=== PATIENT | female | born 1975 | race Caucasian/White ===

== ENCOUNTER 2016-09-29 13:40 | Emergency (ER) | payer OTHER ==
[~2016-09-29] VITALS: Ht 160 cm; Wt 121.6 kg
[~2016-09-29 13:40] MED LIST: ALBUAER2 INH; AMPH15CA7 PO; AMPH20TA2 PO; ATV/1 PO; CETI10TA84 PO; CHOL4POW4 PO; ERGO1CAP35 PO; FERR1TAB13 PO; FLUT0.15 NAE; FURO-85 PO; HYDR-5688 PO; IPRA0.03 NAE; ONDA4TAB10 SL; ONDA4TAB46 PO; PRLSR20 PO; SERT1TAB88 PO; ZLF/50 PO
[2016-09-29 13:43] VITALS: TEMP 37; Ht 160 cm; Wt 121.6 kg
--- NOTE | 2016-09-29 14:38 | DIAGNOSTIC IMAGING REPORT ---
RIGHT WRIST 5 VIEWS HISTORY: Fall. Right wrist injury. COMPARISON: None. FINDINGS: There is no fracture or dislocation. Soft tissues are unremarkable. No radiopaque foreign bodies. IMPRESSION: No fractures. Electronically signed by: Irineo Dugan M.D. 09/29/2016 2:37 PM Dictated Date/Time: 09/29/2016 2:34 PM
--- NOTE | 2016-09-29 15:11 | EMERGENCY ROOM VISIT NOTE ---
ED Visit Note First contact with patient: 13:50 Chief Complaint: RIGHT Hand Pain/Injury - Fell History of Present Illness: Patient is a 40-year-old female who presents to the emergency room today for evaluation of her RIGHT hand injury. She reports that she fell 3 days ago while moving resulting in pain to the RIGHT hand and wrist area. The patient rates her current discomfort as an 8/10. She is tried over- the-counter medications without relief of symptoms. She reports pain with range of motion of the affected RIGHT great thumb. She denies any numbness or tingling into the distal extremity. She reports no history of fracture or injury to the affected area. She denies any associated elbow pain, forearm pain , or shoulder pain. Medications: Reviewed and discussed with the patient. Allergies: Multiple allergies listed above. PMH: No pertinent past medical history. SHx: Patient is a 40-year-old female who lives locally. ROS: All pertinent positive and negative review of systems are appropriately documented in the History of Present Illness. Physical Exam: VITAL SIGNS - Vital signs and nursing notes were reviewed. GENERAL - 40-year-old female appearing her stated age and in noticeable discomfort throughout the exam. MUSCULOSKELETAL - Active ROM of the RIGHT wrist was limited in all directions. No edema noted throughout. No palpable deformities. Moderate tenderness over the Radial styloid process. No tenderness with squeezing the forearm. No tenderness extending into the carpals. No point-tenderness over the anatomic snuffbox. Moderate pain elicited with supination and pronation of the forearm. NEUROLOGIC - SENSORY: Spinothalamic tract was found to be intact with ability to discriminate sharp versus dull sensation at the level of the RIGHT elbow down to the fingertips. No sensory deficits of the dorsal column were appreciated utilizing light touch for evaluation. VASCULAR - Capillary refill was brisk. +3/5 radial pulse palpated. IMAGING: RIGHT WRIST 5 VIEWS HISTORY: Fall. Right wrist injury. COMPARISON: None. FINDINGS: There is no fracture or dislocation. Soft tissues are unremarkable. No radiopaque foreign bodies. IMPRESSION: No fractures. ED Course: Patient was seen and evaluated by myself. X-ray of the affected wrist was obtained. Imaging results above. Imaging results were discussed with the patient who acknowledges understanding. Patient was placed in a thumb spica splint for comfort. She will utilize sqjj-trr-hlibmwi medications and ice for comfort. She will follow-up with her orthopedic surgeon from today's visit. She will return for any changing/worsening symptoms. Patient discharged home in good condition. In the evaluation and treatment of this patient, the following differential diagnoses were considered: Wrist Sprain, Wrist Fracture, Wrist Dislocation, Scapholunate Dissociation, Carpal Fracture, Metacarpal Fracture, Radial Styloid Process Fracture, Ulnar Styloid Process Fracture, or Carpal Tunnel Syndrome. Impression: RIGHT Wrist Sprain, Fall Discharge Instructions: You have been treated in the Emergency Department for Wrist Sprain. For pain control, you can use the following rjqr-qef-ejctxlr medicines (if >12 yo): - Regular strength (325mg/tab) Tylenol (acetaminophen) 2 tabs every 4-6 hours as needed. Do not exceed 12 tablets in a 24 hour period. Avoid taking more than 4 grams (4000 mg) of Tylenol per day. This includes any other sources of acetaminophen you may take on a regular basis. - Regular strength (200 mg/tab) Advil (ibuprofen) 1-2 tabs every 4-6 hours as needed. Do not exceed a dose of 3200 mg per day. If this is a recent injury (<24 hrs), ice can be applied to the area of pain for the first 3 days to help decrease pain and inflammation. Wear the splint for comfort for the next week. Return to the Emergency Department if your current symptoms worsen despite treatment course outlined above, or if you develop any of the following symptoms : intractable pain despite aforementioned treatment course or new onset of numbness or tingling of the fingers. Problem List Medical Problems: (1) Bronchitis Status: Resolved (2) Carpal tunnel syndrome Status: Chronic (3) Diabetes mellitus Status: Chronic (4) sacral fx Status: Resolved Current/Historical Medications Scheduled Amphetamine-Dextroamphetamine 15MG (Adderall Xr 15MG), 15 MG PO DAILY AFTERNOON Amphetamine-Dextroamphetamine 20MG (Adderall 20MG), 1 TAB PO QAM Cetirizine (Zyrtec), 10 MG PO DAILY Ergocalciferol (Vitamin D Cap), 50,000 INTER.UNIT PO WK Ferrous Sulfate (Kp Ferrous Sulfate), 1 TAB PO QAM Fluticasone Propionate (Nasal) (Flonase Allergy Relief), 1 SPRAY JAMIE BID Furosemide (Lasix), 1 TAB PO QAM Ipratropium [place] (Nasal) (Ipratropium [place]), 1 SPRAY JAMIE BID Omeprazole (Prilosec), 20 MG PO TID Ondasetron Odt (Zofran Odt), 4 MG SL Q6H Sertraline HCl (Sertraline HCl), 25 MG PO QAM Sertraline HCl (Sertraline HCl), 50 MG PO QAM Scheduled PRN Albuterol (Ventolin), 2 PUFFS INH QID PRN for Shortness of Breath Cholestyramine (Cholestyramine), 1 DOSE PO DIRECTED PRN for PRN Hydrocodone/Acetaminophen 5MG/325MG ([place] 5MG/325MG), 1 TABLET PO Q6 PRN for Pain Lorazepam (Ativan), 1 MG PO QID PRN for Anxiety Ondansetron Hcl (Zofran), 4 MG PO Q6H PRN for Nausea Allergies Coded Allergies: Tramadol (Verified Allergy, Severe, FEELS LIKE BUGS ON BODY, 08/13/16) INFO FROM [employer] Ketorolac Tromethamine (Verified Allergy, Mild, rash, 08/13/16) Basil (Verified Allergy, Unknown, headaches, 08/13/16) Gabapentin (Verified Allergy, Unknown, SHORTNESS OF BREATH, 08/13/16) INFO [employer] Metronidazole (Verified Allergy, Unknown, THRUSH, 08/13/16) Penicillinase (Verified Allergy, Unknown, unknown, 08/13/16) Promethazine (Verified Allergy, Unknown, HIVES, 08/13/16) Propoxyphene (Verified Allergy, Unknown, 08/13/16) [place] (Verified Allergy, Unknown, ASTHMA EXACERBATION, 08/13/16) Codeine (Verified Adverse Reaction, Unknown, GI SYMPTOMS, 08/13/16) INFO FROM [employer] Prednisone (Verified Adverse Reaction, Unknown, vomiting, 08/13/16) Sumatriptan (Verified Adverse Reaction, Unknown, RASH, 08/13/16) Venlafaxine (Verified Adverse Reaction, Unknown, Increase agitation., ) Vital Signs Date Time Temp Pulse Resp B/P Pulse Ox O2 Delivery O2 Flow Rate FiO2 09/29/16 15:19 82 16 124/103 99 09/29/16 13:43 37.0 91 20 102/75 96 Room Air Departure Information Impression Primary Impression: Right wrist sprain Additional Impression: Fall Dispostion Home / Self-Care Condition GOOD Referrals Swetha Gil D.O. (PCP) Patient Instructions My [facility] Additional Instructions You have been treated in the Emergency Department for Wrist Sprain. For pain control, you can use the following xgjz-cnj-zobprdx medicines (if >12 yo): - Regular strength (325mg/tab) Tylenol (acetaminophen) 2 tabs every 4-6 hours as needed. Do not exceed 12 tablets in a 24 hour period. Avoid taking more than 4 grams (4000 mg) of Tylenol per day. This includes any other sources of acetaminophen you may take on a regular basis. - Regular strength (200 mg/tab) Advil (ibuprofen) 1-2 tabs every 4-6 hours as needed. Do not exceed a dose of 3200 mg per day. If this is a recent injury (<24 hrs), ice can be applied to the area of pain for the first 3 days to help decrease pain and inflammation. Wear the splint for comfort for the next week. Return to the Emergency Department if your current symptoms worsen despite treatment course outlined above, or if you develop any of the following symptoms : intractable pain despite aforementioned treatment course or new onset of numbness or tingling of the fingers. Problem Qualifiers Primary Impression: Right wrist sprain Encounter type: initial encounter Qualified Codes: S63.501A - Unspecified sprain of right wrist, initial encounter Additional Impression: Fall Encounter type: initial encounter Qualified Codes: W19.XXXA - Unspecified fall, initial encounter
[2016-09-29 15:19] VITALS: BP 124/103; PULSE 82; O2SAT 99
== END 2016-09-29 15:25 | disposition home or self-care (01) ==
LOC: C.EDB 13:42 → C.EDD 15:25
DX: S63.501A Unspecified sprain of right wrist, initial encounter (principal); W19.XXXA Unspecified fall, initial encounter; E11.9 Type 2 diabetes mellitus without complications

== ENCOUNTER 2016-10-06 23:02 | Emergency (ER) | payer OTHER ==
[~2016-10-06] VITALS: Ht 160 cm; Wt 120.3 kg
[2016-10-06 23:11] VITALS: TEMP 37.1; Ht 160 cm; Wt 120.3 kg
[2016-10-06] MEDS ORDERED: VNTHFA/IN INH (23:49)
[2016-10-06] MEDS ORDERED: ERGO500037 PO (23:51)
[2016-10-06] MEDS ORDERED: HYDR-5688 PO (23:56)
[2016-10-07] MEDS ORDERED: OXYCODONE HCL IR 5 MG TAB (IMMEDIATE RELEASE) PO STA (00:15)
[2016-10-07] MEDS ORDERED: OXYCODONE IR HOME PACK PO ONE (01:45)
[2016-10-07 02:06] VITALS: BP 121/81; PULSE 72; O2SAT 98
--- NOTE | 2016-10-07 04:03 | EMERGENCY ROOM VISIT NOTE ---
ED Visit Note First contact with patient: 23:49 CHIEF COMPLAINT: Wrist injury HISTORY OF PRESENT ILLNESS: This 40-year-old patient presents to the emergency department complaining of pain in the right wrist after past 2 weeks he was seen here a few weeks ago after she fell on it. The patient is able to move their wrist. The patient states the pain is bothering and 7/10. No laceration, no weakness. No numbness or tingling. The patient denies any other injury. The patient is able to move their fingers and elbow without difficulty. The patient has had a previous fracture to this wrist. The patient has taken Motrin and Tylenol for the pain. REVIEW OF SYSTEMS: A 6 system review of systems was performed with positives and pertinent negatives in the HPI. ALLERGIES: Reviewed MEDICATIONS: Reviewed PMH: Medical Problems: (1) Bronchitis Status: Resolved (2) Carpal tunnel syndrome Status: Chronic (3) Diabetes mellitus Status: Chronic (4) sacral fx Status: Resolved SOCIAL HISTORY: No drug use PHYSICAL EXAM: Vital Signs: Reviewed Nurse's notes, vital signs stable. GENERAL : Pleasant female, in no acute distress, but appears to be in pain, well- developed, well-neurished. NEURO: Alert and oriented to person place and time. Normal sensation to light and sharp touch. MUSCULOSKELETAL: There is no deformity of the right wrist. There is tenderness and edema over snuff box tenderness. Range of motion is intact but painful. There is no tenderness of the elbow, hand or fingers. Abalone Fisherman strength 4/5. Radial pulse 2+. SKIN: Normal and intact. The hand is warm and well perfused with capillary refill less than 2 seconds. EMERGENCY DEPARTMENT COURSE: I examined the patient. X-ray from last week was reviewed and negative for fracture. CT was ordered symptoms persisted and was also negative for fracture A thumb spica splint was placed under my direction and the position was satisfactory. Neurovascular status rechecked and intact. Patient was advised to follow-up with orthopedics in a few days or here in the ER sooner for severe pain, numbness, tingling, worsening signs or symptoms or as needed. The patient was discharged home in good condition. Differential diagnoses include sprain, strain, fracture, dislocation, nerve entrapment and other etiologies were considered DIAGNOSIS: Right wrist sprain DISCHARGE INSTRUCTIONS & TREATMENT: As below Problem List Medical Problems: (1) Bronchitis Status: Resolved (2) Carpal tunnel syndrome Status: Chronic (3) Diabetes mellitus Status: Chronic (4) sacral fx Status: Resolved Current/Historical Medications Scheduled Amphetamine-Dextroamphetamine 15MG (Adderall Xr 15MG), 15 MG PO DAILY AFTERNOON Amphetamine-Dextroamphetamine 20MG (Adderall 20MG), 1 TAB PO QAM Cetirizine (Zyrtec), 10 MG PO DAILY Ergocalciferol (Vitamin D 91154 Unit), 50,000 UNIT PO WK Ferrous Sulfate (Kp Ferrous Sulfate), 1 TAB PO QAM Fluticasone Propionate (Nasal) (Flonase Allergy Relief), 1 SPRAY JAMIE BID Furosemide (Lasix), 1 TAB PO QAM Ipratropium [place] (Nasal) (Ipratropium [place]), 1 SPRAY JAMIE BID Omeprazole (Prilosec), 20 MG PO TID Sertraline HCl (Sertraline HCl), 25 MG PO QAM Sertraline HCl (Sertraline HCl), 50 MG PO QAM Scheduled PRN Albuterol Hfa (Ventolin Hfa), 2 PUFFS INH QID PRN for Shortness of Breath Cholestyramine (Cholestyramine), 1 DOSE PO DIRECTED PRN for PRN Hydrocodone/Acetaminophen 5MG/325MG ([place] 5MG/325MG), 1 TABLET PO Q6 PRN for Pain Lorazepam (Ativan), 1 MG PO QID PRN for Anxiety Ondansetron Hcl (Zofran), 4 MG PO Q6H PRN for Nausea Allergies Coded Allergies: Tramadol (Verified Allergy, Severe, FEELS LIKE BUGS ON BODY, 10/06/16) INFO FROM [employer] Ketorolac Tromethamine (Verified Allergy, Mild, rash, 10/06/16) Basil (Verified Allergy, Unknown, headaches, 10/06/16) Gabapentin (Verified Allergy, Unknown, SHORTNESS OF BREATH, 10/06/16) INFO [employer] Metronidazole (Verified Allergy, Unknown, THRUSH, 10/06/16) Penicillinase (Verified Allergy, Unknown, unknown, 10/06/16) Promethazine (Verified Allergy, Unknown, HIVES, 10/06/16) Propoxyphene (Verified Allergy, Unknown, 10/06/16) [place] (Verified Allergy, Unknown, ASTHMA EXACERBATION, 10/06/16) Codeine (Verified Adverse Reaction, Unknown, GI SYMPTOMS, 10/06/16) INFO FROM [employer] Prednisone (Verified Adverse Reaction, Unknown, vomiting, 10/06/16) Sumatriptan (Verified Adverse Reaction, Unknown, RASH, 10/06/16) Venlafaxine (Verified Adverse Reaction, Unknown, Increase agitation., 10/06) Vital Signs Date Time Temp Pulse Resp B/P Pulse Ox O2 Delivery O2 Flow Rate FiO2 10/07/16 02:06 72 16 121/81 98 10/06/16 23:11 37.1 102 18 129/77 99 Room Air Medications Administered Medications (Trade) Dose Ordered Sig/Nicholas Route Start Time Stop Time Status Last Admin Dose Admin Oxycodone HCl (Roxicodone Immediate Rel Tab) 5 mg NOW STAT PO 10/07/16 00:15 10/07/16 00:17 DC 10/07/16 00:15 5 MG Oxycodone HCl (Roxicodone Immediate Rel 5MG Home Pack) 1 homepack UD ONCE PO 10/07/16 01:45 10/07/16 01:46 DC 10/07/16 01:45 1 HOMEPACK Departure Information Impression Primary Impression: Right wrist sprain Dispostion Home / Self-Care Condition GOOD Referrals Seng Tucker M.D. Forms HOME CARE DOCUMENTATION FORM, IMPORTANT VISIT INFORMATION Patient Instructions My [facility] Additional Instructions DO NOT drive, drink alcohol, operate machinery, or perform dangerous activities today. You were given medications in the ER that can affect your ability to safely function or operate a vehicle. Oxycodone (OxyIR) 5mg: Take 1-2 pills every four hours for breakthrough pain. Avoid alcohol, operating machinery or dangerous equipment, working on ladders or roofs, DRIVING, or situations where being under the influence may be dangerous. It is recommended to use an ikts-bnz-rszfdyf stool softener such as Colace, 100mg twice daily while taking this medication to avoid constipation. Ibuprofen(Motrin, Advil) may be used for fever or pain. Use 600mg every six hours as needed. Take with food. Avoid using more than 2400mg in a 24 hour period. Do not use 2400mg per day for more than three consecutive days without physician direction. Prolonged inappropriate use can lead to stomach upset or ulcers. This medication can be taken if you need to drive, work, or perform activities which may be dangerous when taking narcotic pain medication. (AND/OR) Acetaminophen(Tylenol) may be used for fever or pain. Use 1000mg every six hours as needed. Avoid using more than 3000mg in a 24 hour period. This medication can be taken if you need to drive, work, or perform activities which may be dangerous when taking narcotic pain medication. Ice compresses for 20 minutes at a time four times daily for 2-3 days. Rest and elevate your injury. Wear splint for comfort, do not have it so tight that you cannot feel your fingers. Continue current medications. Return to the ER immediately for any numbness, tingling, severe pain, extreme swelling in the extremity or as needed. Call Orthopedics tomorrow to arrange follow up for your injury.
--- NOTE | 2016-10-07 07:00 | DIAGNOSTIC IMAGING REPORT ---
CT OF THE RIGHT WRIST WITHOUT CONTRAST CT DOSE: 180.67 mGy.cm CLINICAL HISTORY: Severe right wrist pain following fall. TECHNIQUE: Axial images of the right wrist were obtained without IV contrast. Sagittal and coronal reconstructions were viewed. COMPARISON STUDY: Right wrist radiographs September 29, 2016. FINDINGS: Alignment of the right wrist is anatomic. No acute fracture is identified. There is no suspicious osseous lesion. Tendons and intrinsic ligaments of the right wrist are suboptimally assessed by CT. There is mild soft tissue stranding of the right wrist. No large hematoma is identified. IMPRESSION: No acute fracture or dislocation of the right wrist. Electronically signed by: Jemal Causey M.D. 10/07/2016 6:58 AM Dictated Date/Time: 10/07/2016 6:52 AM
== END 2016-10-07 02:07 | disposition home or self-care (01) ==
LOC: C.EDB 23:02 → C.EDD 10-07 02:07
DX: S63.501D Unspecified sprain of right wrist, subsequent encounter (principal); W19.XXXD Unspecified fall, subsequent encounter; E11.9 Type 2 diabetes mellitus without complications; Z79.899 Other long term (current) drug therapy

== ENCOUNTER 2016-12-03 20:20 | Emergency (ER) | payer OTHER ==
[~2016-12-03] VITALS: Ht 160 cm; Wt 121.5 kg
[~2016-12-03 20:20] MED LIST changes: -ALBUAER2 INH; -ERGO1CAP35 PO; +ERGO500037 PO; -ONDA4TAB10 SL; +VNTHFA/IN INH
[2016-12-03 20:25] VITALS: BP 122/80; PULSE 78; TEMP 36.7; O2SAT 96; Ht 160 cm; Wt 121.5 kg
--- NOTE | 2016-12-03 20:44 | EMERGENCY ROOM VISIT NOTE ---
ED Visit Note First contact with patient: 20:27 CHIEF COMPLAINT: Toothache HISTORY OF PRESENT ILLNESS: This 41-year-old female patient presented to the emergency department ambulatory complaining of dental pain. The patient states that she had 2 teeth pulled 3 days ago and has been having pain since then. She states the teeth pulled were right upper and left upper molars. She was prescribed Vicodin but states that she has not been taking this because she does not feel it helps with the pain. She called her dentist and they told her that they will see her next week. She rates her discomfort a 10/10. She denies any facial swelling or drainage from the teeth. She denies any fevers/ chills. REVIEW OF SYSTEMS: A 6 system review of systems was completed with positives and pertinent negatives listed in the HPI. ALLERGIES: See EMR MEDICATIONS: See med list PMH: See EMR SOCIAL HISTORY: Patient lives locally with family. She is a smoker. PHYSICAL EXAM: Vitals are noted on the nurse's note and reviewed by myself. Vital signs stable. Temperature 36.7C orally. GENERAL: This is a 41-year-old female, in no acute distress, nondiaphoretic, well-developed well-nourished. Mouth: There is evidence of recent extraction of the right third upper molar and left third upper molar. There is no swelling of the gums. There is no bleeding. There is no discharge or signs of infection. The remainder of the pharynx and tonsils are without erythema, edema, or exudate. The airway is patent. There is no facial swelling, cervical or submandibular lymphadenopathy. The patient appears uncomfortable and in pain. The patient has overall poor dental hygiene. EARS: External auditory canals clear, tympanic membranes pearly reyes without erythema or effusion bilaterally. ED COURSE: The patient was evaluated as above. There is no evidence of dry socket. There is no evidence of infection. The patient was prescribed pain medication by her dentist and has not been taking this. I did explain to the patient that there is nothing further to be done from a medical perspective, and she will need to see her dentist for further evaluation of this dental issue. She was instructed to begin taking the pain medication at home and add on ibuprofen. The patient did not happy with this plan of care will but I did explain to her there is nothing further to be done until she follows up with her dentist. She verbalized understanding and was discharged home in good condition. DIAGNOSIS: Odontalgia Problem List Medical Problems: (1) Bronchitis Status: Resolved (2) Carpal tunnel syndrome Status: Chronic (3) Diabetes mellitus Status: Chronic (4) sacral fx Status: Resolved Current/Historical Medications Scheduled Amphetamine-Dextroamphetamine 15MG (Adderall Xr 15MG), 15 MG PO DAILY AFTERNOON Amphetamine-Dextroamphetamine 20MG (Adderall 20MG), 1 TAB PO QAM Cetirizine (Zyrtec), 10 MG PO DAILY Ergocalciferol (Vitamin D 37514 Unit), 50,000 UNIT PO WK Ferrous Sulfate (Kp Ferrous Sulfate), 1 TAB PO QAM Fluticasone Propionate (Nasal) (Flonase Allergy Relief), 1 SPRAY JAMIE BID Furosemide (Lasix), 1 TAB PO QAM Ipratropium [place] (Nasal) (Ipratropium [place]), 1 SPRAY JAMIE BID Omeprazole (Prilosec), 20 MG PO TID Sertraline HCl (Sertraline HCl), 25 MG PO QAM Sertraline HCl (Sertraline HCl), 50 MG PO QAM Scheduled PRN Albuterol Hfa (Ventolin Hfa), 2 PUFFS INH QID PRN for Shortness of Breath Cholestyramine (Cholestyramine), 1 DOSE PO DIRECTED PRN for PRN Hydrocodone/Acetaminophen 5MG/325MG ([place] 5MG/325MG), 1 TABLET PO Q6 PRN for Pain Lorazepam (Ativan), 1 MG PO QID PRN for Anxiety Ondansetron Hcl (Zofran), 4 MG PO Q6H PRN for Nausea Allergies Coded Allergies: Tramadol (Verified Allergy, Severe, FEELS LIKE BUGS ON BODY, 10/06/16) INFO FROM [employer] Ketorolac Tromethamine (Verified Allergy, Mild, rash, 10/06/16) Basil (Verified Allergy, Unknown, headaches, 10/06/16) Gabapentin (Verified Allergy, Unknown, SHORTNESS OF BREATH, 10/06/16) INFO [employer] Metronidazole (Verified Allergy, Unknown, THRUSH, 10/06/16) Penicillinase (Verified Allergy, Unknown, unknown, 10/06/16) Promethazine (Verified Allergy, Unknown, HIVES, 10/06/16) Propoxyphene (Verified Allergy, Unknown, 10/06/16) [place] (Verified Allergy, Unknown, ASTHMA EXACERBATION, 10/06/16) Codeine (Verified Adverse Reaction, Unknown, GI SYMPTOMS, 10/06/16) INFO FROM [employer] Prednisone (Verified Adverse Reaction, Unknown, vomiting, 10/06/16) Sumatriptan (Verified Adverse Reaction, Unknown, RASH, 10/06/16) Venlafaxine (Verified Adverse Reaction, Unknown, Increase agitation., 10/06) Vital Signs Date Time Temp Pulse Resp B/P Pulse Ox O2 Delivery O2 Flow Rate FiO2 12/03/16 20:25 36.7 78 16 122/80 96 Room Air Departure Information Impression Primary Impression: Dentalgia Dispostion Home / Self-Care Condition GOOD Referrals Swetha Gil D.O. (PCP) Patient Instructions My [facility] Additional Instructions You have been treated in the Emergency Department for Dental Pain. Continue your medications at home as prescribed. For pain control, you can use the following [id number] medicines (if >12 yo): - Regular strength (325mg/tab) Tylenol (acetaminophen) 2 tabs every 4-6 hours as needed. Do not exceed 12 tablets in a 24 hour period. Avoid taking more than 4 grams (4000 mg) of Tylenol per day. This includes any other sources of acetaminophen you may take on a regular basis. - Regular strength (200 mg/tab) Advil (ibuprofen) 1-2 tabs every 4-6 hours as needed. Do not exceed a dose of 3200 mg per day. Refrain from smoking cigarettes or using chewing tobacco until you have been evaluated by your dentist. Keeping beverages lukewarm and consuming soft foods can decrease your pain. Warm compresses over the affected area may offer some relief. You MUST seek evaluation of your dental pain by a dentist following your visit to the Emergency Department. The Emergency Department is not capable of treating dental issues long-term. You should call your dentist as soon as possible to make an appointment for evaluation of your dental pain. Return to the emergency department if you develop the following symptoms despite treatment course outlined above: fever, intractable pain, increased redness, swelling, or purulent discharge.
== END 2016-12-03 21:15 | disposition home or self-care (01) ==
LOC: C.EDB 20:22 → C.EDD 21:15
DX: K08.89 Other specified disorders of teeth and supporting structures (principal); Z98.890 Other specified postprocedural states; F17.210 Nicotine dependence, cigarettes, uncomplicated; E11.9 Type 2 diabetes mellitus without complications; Z79.899 Other long term (current) drug therapy

== ENCOUNTER → 2017-01-12 | Outpatient (CLI) | payer OTHER ==
--- NOTE | 2017-01-12 15:31 | DIAGNOSTIC IMAGING REPORT ---
MRI THE RIGHT WRIST NO CONTRAST CLINICAL HISTORY: Right wrist pain status post trauma COMPARISON STUDY: Conventional radiographic study dated 09/29/2016, CT scan dated 10/07/2016 FINDINGS: Imaging was performed in the sagittal, axial, and coronal planes. There are no areas of marrow edema to indicate occult fracture or bone bruise. The triangular fibrocartilage appears intact. There is no evidence of pathologic joint effusion. There is no evidence of tendinopathy. There are multiple small subchondral cysts/bony erosions with involvement of the distal ulna, navicular, lunate, triquetrum, and capitate. These are felt to be on arthritic basis. There are probable postsurgical changes of a prior carpal tunnel release. IMPRESSION: 1. No evidence of occult fracture or bone bruise 2. No evidence of triangular fibrocartilage tear 3. No evidence of tendinopathy 4. Multiple small subchondral cysts//bony erosions, likely on an arthritic basis. Electronically signed by: Sylvester Sargent M.D. 01/12/2017 3:30 PM Dictated Date/Time: 01/12/2017 3:23 PM
== END | disposition home or self-care (01) ==
LOC: C.MRIBC 14:30
PROVIDERS: ATTEND Orthopaedic Surgery
DX: M25.531 Pain in right wrist (principal)

== ENCOUNTER → 2017-05-21 | Outpatient (CLI) | payer OTHER ==
--- NOTE | 2017-05-21 15:47 | MAMMOGRAPHY REPORT ---
BILATERAL DIGITAL DIAGNOSTIC MAMMOGRAM TOMOSYNTHESIS WITH CAD AND TARGETED LEFT ULTRASOUND: 05/21/2017 CLINICAL HISTORY: The patient reports a nontender palpable lump in her left breast for approximately 6 months, which she believes has clinically increased since when she first felt it. Her and her moth er report associated skin redness, which was more prominent when the lump was first felt. She denies any trauma to the breast. TECHNIQUE: Breast tomosynthesis in addition to standard 2D mammography was performed. Current study was also evaluated with a Computer Aided Detection (CAD) system. Bilateral CC and MLO 2-D and tomosy nthesis images were obtained. COMPARISON: No prior exams were available for comparison. BREAST COMPOSITION: There are scattered areas of fibroglandular density in both breasts. FINDINGS: A triangle marker waggoner the site of the palpable lump in the left upper outer quadrant. T here is an ill-defined vague asymmetry in the left upper outer quadrant which is asymmetric compared to the right breast. The area is ill-defined and therefore difficult to measure but measures at leas t 7.2 cm on the MLO view but no discrete mass is seen in the region of the asymmetry. There is also possible overlying skin thickening best appreciated on the MLO view. The remainder of both breasts d emonstrate no suspicious masses, calcifications, or areas of architectural distortion. Targeted ultrasound was performed of the area of the palpable lump pointed out by the patient, in the left breast at 1:00 approximately 9 cm from the nipple. At the site of the palpable lump and elsewh ere in the left upper outer quadrant, most prominent in the left 12 to 1:00 breast, there is vague in creased echogenicity of the breast parenchyma as well as mild overlying skin thickening. No discrete mass is evident. The hyperechoic breast parenchyma corresponds with the mammographic asymmetry. Wh ile this could represent fat necrosis, the patient denies any known trauma to this region. Therefore , the finding is indeterminant and tissue sampling is recommended. Given that a discrete mass is not seen on ultrasound and given that the findings are vague and ill-defined on imaging, I would recomme nd fine-needle aspiration of the palpable lump by the pathology department. IMPRESSION: ACR BI-RADS CATEGORY 4: SUSPICIOUS, TARGETED ULTRASOUND ACR BI-RADS CATEGORY 4: SUSPICIO US In the region of a palpable lump felt by the patient, there is a large ill-defined focal asymmetry in the left upper outer quadrant mammographically, with corresponding ill-defined increased echogenicit y of the breast parenchyma on ultrasound. Mild overlying skin thickening is also noted. While an in jury to the breast can have this appearance, the patient denies any known trauma therefore the findin g is indeterminate and malignancy such as inflammatory breast cancer is not excluded. Tissue samplin g is recommended for further evaluation. Given that a discrete mass is not seen on imaging, I would recommend fine-needle aspiration of the palpable lump by the pathology department for further evaluat ion. A phone call was made to the physician's office to confirm faxed results were received. The patient has been verbally notified of the results. Approximately 10% of breast cancers are not detected with mammography. A negative mammographic report should not delay biopsy if a clinically suggestive mass is present. Mariia Elder M.D. ah/:05/21/2017 12:10:09 Director Geothermal Operations: Heidy LOENE(R)(M), [facility] letter sent: Abnormal 4/5 BI-RADS Code: ACR BI-RADS Category 4: Suspicious Ultrasound BI-RADS: ACR BI-RADS Category 4: Suspici ous
== END | disposition home or self-care (01) ==
LOC: C.MAMM 11:14
PROVIDERS: ATTEND Physician Assistant
DX: N63.21 Unspecified lump in the left breast, upper outer quadrant (principal)

== ENCOUNTER → 2017-07-01 | Outpatient (CLI) | payer OTHER ==
[~2017-07-01] MED LIST changes: +GADAVIST IV PRN
--- NOTE | 2017-07-02 15:38 | MAMMOGRAPHY REPORT ---
BREAST MRI OF BOTH BREASTS : 07/01/2017 CLINICAL HISTORY: Ill-defined focal asymmetry with overlying skin thickening seen within the left ra ast mammographically at the site of a palpable lump during a recent diagnostic workup, with correspon ding hyperechoic breast parenchyma seen on ultrasound. A fine-needle aspiration of the palpable lump was recommended. COMPARISON: Comparison is made to exam dated: 05/21/2017 mammogram - [facility]. Technique: The patient was placed prone in a dedicated breast imaging coil. Precontrast axial T1-brandon ghted, axial T2-weighted fat saturation, and axial T1-weighted fat saturation images were obtained. After the administration of 12 mL of Gadavist IV contrast, sequential T1-weighted fat saturation imag es were obtained. Subtraction images were obtained of the dynamic contrast enhanced sequences, and 3 -D reformations were performed. The [employer] software was used for kinetic analysis. Findings: There is mild background parenchymal enhancement bilaterally. There is mild skin thickening and enha ncement involving the left upper outer quadrant from approximately 12 to 2:00. Additionally, there i s mild skin thickening and enhancement involving the left upper inner quadrant far superiorly. There is ill-defined trabecular thickening and enhancement in the breast tissues underlying the skin thick ening, greatest in the left upper outer quadrant. This enhancement corresponds with the mammographic asymmetry and corresponding hyperechoic tissue on ultrasound. No discrete suspicious enhancing mass is noted within the left breast. In the right breast, there is minimal skin thickening and enhancem ent and underlying trabecular enhancement in the right upper inner quadrant far superiorly, which zana ears similar to the left breast. The remainder of both breasts demonstrate no suspicious enhancing m asses or areas of abnormal non-mass enhancement. There is no evidence of axillary adenopathy. The chest wall structures are negative. The extramamma ry soft tissues are grossly unremarkable. IMPRESSION: ACR BI-RADS CATEGORY 4: SUSPICIOUS Mild skin thickening/enhancement and corresponding underlying trabecular thickening/enhancement invol ving the left upper outer quadrant and to a lesser degree left upper inner quadrant. The enhancement corresponds with the mammographic asymmetry. Similar skin thickening/enhancement and underlying trab ecular enhancement is also seen within the right upper inner quadrant far superiorly. Given the bilaterality of the findings, findings are more likely to be benign and could represent an inflammatory/infectious or posttraumatic process. However, malignancy such as inflammatory breast ca ncer cannot be excluded on imaging. Therefore, tissue sampling is recommended; consider either skin punch biopsy of skin thickening in the left upper outer quadrant, versus fine-needle aspiration based on palpation by the pathology department (given that the patient reports a palpable lump in this reg ion). A phone call was made to the physician's office to confirm faxed results were received. Mariia Elder M.D. ah/:07/01/2017 16:40:55 Global Coordinator: biometrics analyst, [facility] letter sent: Abnormal 4/5 BI-RADS Code: ACR BI-RADS Category 4: Suspicious
== END | disposition home or self-care (01) ==
LOC: C.MRI 10:12
PROVIDERS: ATTEND Surgery
DX: R92.8 Other abnormal and inconclusive findings on diagnostic imaging of breast (principal)

== ENCOUNTER 2017-09-27 16:41 | Emergency (ER) | payer OTHER ==
[~2017-09-27] VITALS: Ht 160 cm; Wt 122.8 kg
[~2017-09-27 16:41] MED LIST changes: -GADAVIST IV PRN
[2017-09-27 16:57] VITALS: TEMP 36.8; Ht 160 cm; Wt 122.8 kg
[2017-09-27] MEDS ORDERED: MoRPHine SULFATE 4 MG/ML 1 ML CARP\\VIAL IV STA (17:45)
[2017-09-27] MEDS ORDERED: ONDANSETRON INJ 2 MG/ML 2 ML VIAL IV STA (17:45)
[2017-09-27] MEDS ORDERED: RANI300T2 PO (18:23)
[2017-09-27 19:02] LABS: BASO % 0.2 %; BASO ABS # 0.02 K/uL (0-0.2); EOS % 0.8 %; EOS ABS # 0.08 K/uL (0-0.5); HEMATOCRIT 40.2 % (37-47); HEMOGLOBIN 13.8 g/dL (12.0-16.0); IG# 0.03 K/uL (0.00-0.02); LYMPH % 19.1 %; LYMPH ABS # 1.87 K/uL (1.2-3.4); MEAN CELL VOLUME 87.2 fL (80-100); MEAN CORPUSCULAR HEMOGLOBIN 29.9 pg (25-34); MEAN CORPUSCULAR HGB CONC 34.3 g/dl (32-36); MEAN PLATELET VOLUME 10.6 fL (7.4-10.4); MONO % 4.5 %; MONO ABS # 0.44 K/uL (0.11-0.59); NEUT % 75.1 %; NEUT ABS # 7.35 K/uL (1.4-6.5); PLATELET COUNT 323 K/uL (130-400); RED CELL DISTRIBUTION WIDTH CV 13.8 % (11.5-14.5); RED CELL DISTRIBUTION WIDTH SD 44.2 fL (36.4-46.3); WHITE BLOOD COUNT 9.79 K/uL (4.8-10.8)
[2017-09-27 19:09] LABS: ALBUMIN 3.1 gm/dl (3.4-5.0); BLOOD UREA NITROGEN 14 mg/dl (7-18); CALCIUM 8.8 mg/dl (8.5-10.1); CARBON DIOXIDE 25 mmol/L (21-32); CREATININE 0.86 mg/dl (0.60-1.20); GLUCOSE 83 mg/dl (70-99); LIPASE 108 U/L (73-393); POTASSIUM 3.9 mmol/L (3.5-5.1); SODIUM 137 mmol/L (136-145)
[2017-09-27 19:12] LABS: ALKALINE PHOSPHATASE 100 U/L (45-117); ALT/SGPT 20 U/L (12-78); AST/SGOT 12 U/L (15-37); TOTAL PROTEIN 7.2 gm/dl (6.4-8.2)
--- NOTE | 2017-09-27 19:24 | DIAGNOSTIC IMAGING REPORT ---
ABD/PELVIS WITHOUT FOR STONE CT DOSE: 1638.34 mGy.cm HISTORY: Pain right abd pain eval for stone/appe TECHNIQUE: Multiaxial CT images of the abdomen and pelvis were performed without the use of intravenous and oral contrast according to the standard department stone protocol. A dose lowering technique was utilized adhering to the principles of ALARA. COMPARISON STUDY: 07/30/2016 FINDINGS: Lung bases are clear. Prior cholecystectomy. Liver spleen and pancreas are unremarkable in overall configuration. Kidneys negative for calcification or hydronephrosis. Bowel pattern is nonobstructive. The appendix is normal. IMPRESSION: No renal stones or hydronephrosis. Normal appendix. Negative study post cholecystectomy The above report was generated using voice recognition software. It may contain grammatical, syntax or spelling errors. Electronically signed by: Mathieu Aviles M.D. 09/27/2017 7:23 PM Dictated Date/Time: 09/27/2017 7:19 PM
[2017-09-27 19:31] VITALS: BP 108/63; PULSE 88; O2SAT 96
--- NOTE | 2017-09-27 19:57 | EMERGENCY ROOM VISIT NOTE ---
History Report prepared by Jf: Parish Delcid Under the Supervision of: Dr. Oswaldo Sanchez M.D. First contact with patient: 17:39 Chief Complaint: ABDOMINAL PAIN Stated Complaint: RIGHT SIDE PAIN Nursing Triage Summary: Pt reports right sided abd pain x 2 days. Denies back/flank pain. Nausea. Small bowel movement this morning, "It wasn't normal. I've had a lot of trouble going to the bathroom." Denies urinary s/sx. History of Present Illness The patient is a 41 year old female who presents to the Emergency Room with complaints of constant right lower abdominal pain beginning two days ago. The patient describes her pain as "sharp". She also complains of nausea and abdominal bloating. She denies constipation, but states that she has been defecating a small amount recently. The patient has no history of similar pain. Her pain is worsened with eating. She denies any urinary symptoms, back pain, vomiting, diarrhea, or fevers. The patient notes that she had a whitish vaginal discharge one week ago, but this has resolved. She denies chance of and has a history of BTL. Source of History: patient Onset: Two days ago Position: abdomen (right lower) Quality: sharp Timing: constant Modifying Factors (Worsening): eating Associated Symptoms: + nausea, No fevers, No vomiting, No back pain, No diarrhea, No urinary symptoms Note: Additional symptoms: abdominal bloating. Review of Systems See HPI for pertinent positives & negatives. A total of 10 systems reviewed and were otherwise negative. Past Medical & Surgical Medical Problems: (1) Bronchitis (2) Carpal tunnel syndrome (3) Cellulitis (4) Diabetes mellitus (5) sacral fx Family History Diabetes mellitus Hypertension Kidney stones Social History Smoking Status: Current Every Day Smoker Alcohol Use: occasionally Marital Status: single Housing Status: lives with family Occupation Status: unemployed Current/Historical Medications Scheduled Amphetamine-Dextroamphetamine 15MG (Adderall Xr 15MG), 15 MG PO DAILY AFTERNOON Amphetamine-Dextroamphetamine 20MG (Adderall 20MG), 20 MG PO QAM Cetirizine (Zyrtec), 10 MG PO DAILY Ergocalciferol (Vitamin D 21109 Unit), 50,000 UNIT PO WK Fluticasone Propionate (Nasal) (Flonase Allergy Relief), 2 SPRAY JAMIE BID Furosemide (Lasix), 20 MG PO QAM Ipratropium Hall (Nasal) (Ipratropium Hall), 1 SPRAY JAMIE BID Ranitidine (Zantac), 300 MG PO BID Sertraline HCl (Sertraline HCl), 50 MG PO QAM Scheduled PRN Albuterol Hfa (Ventolin Hfa), 2 PUFFS INH QID PRN for Shortness of Breath Lorazepam (Ativan), 1 MG PO QID PRN for Anxiety Ondansetron Hcl (Zofran), 4 MG PO Q6H PRN for Nausea Allergies Coded Allergies: Tramadol (Verified Allergy, Severe, FEELS LIKE BUGS ON BODY, 09/27/17) INFO FROM [facility] Ketorolac Tromethamine (Verified Allergy, Mild, rash, 09/27/17) Basil (Verified Allergy, Unknown, headaches, 09/27/17) Gabapentin (Verified Allergy, Unknown, SHORTNESS OF BREATH, 09/27/17) INFO [facility] [employer] [facility] Metronidazole (Verified Allergy, Unknown, THRUSH, 09/27/17) Penicillinase (Verified Allergy, Unknown, unknown, 09/27/17) Promethazine (Verified Allergy, Unknown, HIVES, 09/27/17) Propoxyphene (Verified Allergy, Unknown, 09/27/17) Parrish (Verified Allergy, Unknown, ASTHMA EXACERBATION, 09/27/17) Codeine (Verified Adverse Reaction, Unknown, GI SYMPTOMS, 09/27/17) INFO FROM [facility] Prednisone (Verified Adverse Reaction, Unknown, vomiting, 09/27/17) Sumatriptan (Verified Adverse Reaction, Unknown, RASH, 09/27/17) Venlafaxine (Verified Adverse Reaction, Unknown, Increase agitation., 09/27) Physical Exam Vital Signs Date Time Temp Pulse Resp B/P (MAP) Pulse Ox O2 Delivery O2 Flow Rate FiO2 09/27/17 19:31 88 19 108/63 96 Room Air 09/27/17 19:26 88 98/65 95 09/27/17 16:57 36.8 94 18 133/73 99 Room Air Physical Exam Constitutional: Vital signs reviewed. Eyes: Pupils are equal round reactive to light. Conjunctiva are noninjected. ENT: Pharynx is clear without erythema or exudate. Mucous membranes are moist. Neck supple without meningeal signs. Respiratory: Clear to auscultation bilaterally. Breath sounds are equal bilaterally. Cardiovascular: Regular rate and rhythm. No rubs or gallops. GI: Soft, nondistended. Bowel sounds are present. Mid-right abdominal tenderness. No guarding. Musculoskeletal: No peripheral edema. No CVA tenderness. Integumentary: No cyanosis. Neurological: The patient is awake and alert. No focal deficits. Psychiatric: Normal affect. Medical Decision & Procedures ER Provider Diagnostic Interpretation: Radiology results as stated below per my review and the radiologist's interpretation: ABD/PELVIS WITHOUT FOR STONE FINDINGS: Lung bases are clear. Prior cholecystectomy. Liver spleen and pancreas are unremarkable in overall configuration. Kidneys negative for calcification or hydronephrosis. Bowel pattern is nonobstructive. The appendix is normal. IMPRESSION: No renal stones or hydronephrosis. Normal appendix. Negative study post cholecystectomy The above report was generated using voice recognition software. It may contain grammatical, syntax or spelling errors. Electronically signed by: Mathieu Aviles M.D. 09/27/2017 7:23 PM Laboratory Results 09/27/17 18:36 Red Blood Count 4.61, Mean Corpuscular Volume 87.2, Mean Corpuscular Hemoglobin 29.9, Mean Corpuscular Hemoglobin Concent 34.3, Mean Platelet Volume 10.6, Neutrophils (%) (Auto) 75.1, Lymphocytes (%) (Auto) 19.1, Monocytes (%) (Auto) 4.5, Eosinophils (%) (Auto) 0.8, Basophils (%) (Auto) 0.2, Neutrophils # (Auto) 7.35, Lymphocytes # (Auto) 1.87, Monocytes # (Auto) 0.44, Eosinophils # (Auto) 0.08, Basophils # (Auto) 0.02 09/27/17 18:36 Test 09/27/17 18:00 09/27/17 18:36 Urine Color YELLOW Urine Appearance CLOUDY (CLEAR) Urine pH 5.5 (4.5-7.5) Urine Specific Crockett 1.023 (1.000-1.030) Urine Protein NEG (NEG) Urine Glucose (UA) NEG (NEG) Urine Ketones TRACE (NEG) Urine Occult Blood NEG (NEG) Urine Nitrite NEG (NEG) Urine Bilirubin NEG (NEG) Urine Urobilinogen NEG (NEG) Urine Leukocyte Esterase NEG (NEG) Urine WBC (Auto) 1-5 /hpf (0-5) Urine RBC (Auto) 0-4 /hpf (0-4) Urine Hyaline Casts (Auto) 1-5 /lpf (0-5) Urine Epithelial Cells (Auto) >30 /lpf (0-5) Urine Bacteria (Auto) NEG (NEG) Urine Test NEG (NEG) White Blood Count 9.79 K/uL (4.8-10.8) Red Blood Count 4.61 M/uL (4.2-5.4) Hemoglobin 13.8 g/dL (12.0-16.0) Hematocrit 40.2 % (37-47) Mean Corpuscular Volume 87.2 fL (80-100) Mean Corpuscular Hemoglobin 29.9 pg (25-34) Mean Corpuscular Hemoglobin Concent 34.3 g/dl (32-36) Platelet Count 323 K/uL (130-400) Mean Platelet Volume 10.6 fL (7.4-10.4) Neutrophils (%) (Auto) 75.1 % Lymphocytes (%) (Auto) 19.1 % Monocytes (%) (Auto) 4.5 % Eosinophils (%) (Auto) 0.8 % Basophils (%) (Auto) 0.2 % Neutrophils # (Auto) 7.35 K/uL (1.4-6.5) Lymphocytes # (Auto) 1.87 K/uL (1.2-3.4) Monocytes # (Auto) 0.44 K/uL (0.11-0.59) Eosinophils # (Auto) 0.08 K/uL (0-0.5) Basophils # (Auto) 0.02 K/uL (0-0.2) RDW Standard Deviation 44.2 fL (36.4-46.3) RDW Coefficient of Variation 13.8 % (11.5-14.5) Immature Granulocyte % (Auto) 0.3 % Immature Granulocyte # (Auto) 0.03 K/uL (0.00-0.02) Anion Gap 7.0 mmol/L (3-11) Est Creatinine Clear Calc Drug Dose 110.6 ml/min Estimated GFR () 97.9 Estimated GFR (Non- 84.5 BUN/Creatinine Ratio 16.0 (10-20) Calcium Level 8.8 mg/dl (8.5-10.1) Total Bilirubin 0.3 mg/dl (0.2-1) Direct Bilirubin < 0.1 mg/dl (0-0.2) Aspartate Amino Transf (AST/SGOT) 12 U/L (15-37) Alanine Aminotransferase (ALT/SGPT) 20 U/L (12-78) Alkaline Phosphatase 100 U/L (45-117) Total Protein 7.2 gm/dl (6.4-8.2) Albumin 3.1 gm/dl (3.4-5.0) Lipase 108 U/L (73-393) Laboratory results as reviewed by me. Medications Administered Medications (Trade) Dose Ordered Sig/Nicholas Route Start Time Stop Time Status Last Admin Dose Admin Morphine Sulfate (MoRPHine SULFATE INJ) 4 mg ONE STAT IV 09/27/17 17:45 09/27/17 17:47 DC 09/27/17 18:36 4 MG Ondansetron HCl (Zofran Inj) 4 mg NOW STAT IV 09/27/17 17:45 09/27/17 17:47 DC 09/27/17 18:35 4 MG ED Course 1740: The patient was evaluated in room C2B. A complete history and physical exam was performed. 1744: Ordered Zofran Inj 4 mg IV, Morphine Sulfate 4 mg IV. 0: Upon reevaluation, the patient appeared to have improvement of her symptoms. She declined pelvic exam. I discussed tonight's findings with her. She verbalized agreement of the treatment plan. Advised close follow up with her PCP. The patient was discharged home. Medical Decision This is a 41-year-old female presents with right-sided abdominal pain. Differential diagnosis includes appendicitis, abscess, perforation, kidney stone , irritable bowel syndrome, pancreatitis, partial bowel obstruction. I did perform a limited focused review of portions of the patient's old chart on the electronic medical record. The patient has had no recent pertinent visits to this hospital. I did evaluate the patient as noted above. The patient is presenting with right -sided abdominal pain. She points to the right side of her umbilicus. She does have tenderness in the sternal area. IV access was established. I did treat the patient with IV morphine and Zofran. I did order and personally review the patient's urine analysis as described above. I did order and review the patient's blood work as noted in the electronic medical record. White blood cell count is not elevated. LFTs and lipase are unremarkable. I did order a CT of the abdomen and pelvis. I did review the images myself as well as the radiology report as described above. There is no evidence of acute process. The patient has no signs of appendicitis or kidney stone. I did reassess patient. I did discuss the test results with the patient with her in the room. She seemed upset that I did not have a definitive answer for her. I did explain to her that despite her testing we could not find a definitive cause for her pain and that it was important for her to follow-up with her doctor for further evaluation. I did offer to do a pelvic examination and she did have some discharge a week ago. I did explain to her that the pelvic examination which show me infection. She was not concerned and declined. Patient was therefore discharged and advised to see her doctor within 48 hours. She was given return instructions as outlined below. Medication Reconcilliation Current Medication List: was personally reviewed by me Blood Pressure Screening Patient's blood pressure: Elevated blood pressure Blood pressure disposition: Referred to PCP Impression Primary Impression: Right sided abdominal pain Scribe Attestation The scribe's documentation has been prepared under my direct and personally reviewed by me in its entirety. I confirm that the note above accurately reflects all work, treatment, procedures, and medical decision making performed by me. Departure Information Dispostion Home / Self-Care Referrals Swetha Gil D.O. (PCP) Forms Call Back Authorization, HOME CARE DOCUMENTATION FORM, IMPORTANT VISIT INFORMATION Patient Instructions ED Abdominal Pain Unkn Cause, My [facility] Additional Instructions You have been examined and treated today on an emergency basis only. This is not a substitute for, or an effort to provide, complete comprehensive medical care. It is impossible to recognize and treat all injuries or illnesses in a single emergency department visit. It is therefore important that you follow up closely with your physician within 48 hours. Call as soon as possible for an appointment. Return for worsening symptoms or if you develop fever, vomiting, or any other concerning symptoms.
== END 2017-09-27 19:49 | disposition home or self-care (01) ==
LOC: C.EDB 16:42 → C.EDC 19:49
DX: R10.31 Right lower quadrant pain (principal); R11.0 Nausea; R14.0 Abdominal distension (gaseous); E11.9 Type 2 diabetes mellitus without complications; F17.200 Nicotine dependence, unspecified, uncomplicated; Z88.6 Allergy status to analgesic agent; Z88.8 Allergy status to other drugs, medicaments and biological substances; Z91.018 Allergy to other foods; Z88.1 Allergy status to other antibiotic agents; Z88.0 Allergy status to penicillin; Z82.49 Family history of ischemic heart disease and other diseases of the circulatory system; Z83.3 Family history of diabetes mellitus; Z84.1 Family history of disorders of kidney and ureter

== ENCOUNTER 2017-10-21 20:31 | Emergency (ER) | payer OTHER ==
[~2017-10-21] VITALS: Ht 160 cm; Wt 124.3 kg
[~2017-10-21 20:31] MED LIST changes: -CHOL4POW4 PO; -FERR1TAB13 PO; -HYDR-5688 PO; -PRLSR20 PO; +RANI300T2 PO; -SERT1TAB88 PO; -VNTHFA/IN INH
[2017-10-21 20:45] VITALS: TEMP 36.9; Ht 160 cm; Wt 124.3 kg
[2017-10-21] MEDS ORDERED: HYDR50CA2 PO (21:29)
[2017-10-21] MEDS ORDERED: ATV1 PO (21:29)
[2017-10-21] MEDS ORDERED: ERGO500011 PO (21:29)
[2017-10-21] MEDS ORDERED: CETI-54 PO (21:29)
[2017-10-21] MEDS ORDERED: AMPH25CA PO (21:29)
[2017-10-21] MEDS ORDERED: SODIUM CHLORIDE 0.9% 1000ML 1,000 ML IV ONE (21:30)
[2017-10-21] MEDS ORDERED: ONDANSETRON INJ 2 MG/ML 2 ML VIAL IV PRN (21:30)
[2017-10-21] MEDS: MoRPHine SULFATE 4 MG/ML 1 ML CARP\\VIAL IV PRN ×2 (21:38→22:42)
[2017-10-21 21:55] LABS: BASO % 0.2 %; BASO ABS # 0.02 K/uL (0-0.2); EOS % 1.8 %; EOS ABS # 0.15 K/uL (0-0.5); HEMATOCRIT 41.9 % (37-47); IG# 0.02 K/uL (0.00-0.02); LYMPH % 27.2 %; LYMPH ABS # 2.25 K/uL (1.2-3.4); MEAN CELL VOLUME 88.2 fL (80-100); MEAN CORPUSCULAR HEMOGLOBIN 29.5 pg (25-34); MEAN CORPUSCULAR HGB CONC 33.4 g/dl (32-36); MEAN PLATELET VOLUME 10.5 fL (7.4-10.4); MONO % 6.1 %; NEUT % 64.5 %; NEUT ABS # 5.32 K/uL (1.4-6.5); PLATELET COUNT 325 K/uL (130-400); RED CELL DISTRIBUTION WIDTH SD 45.6 fL (36.4-46.3); WHITE BLOOD COUNT 8.26 K/uL (4.8-10.8)
--- NOTE | 2017-10-21 22:00 | EMERGENCY ROOM VISIT NOTE ---
History First contact with patient: 21:07 Chief Complaint: INFECTION Stated Complaint: INFECTION Nursing Triage Summary: "I have an infection in my woman parts" Pelvic inflammatory disease. Alot of drainage. Alot of pain. History of Present Illness The patient is a 41 year old female who presents to the Emergency Room with complaints of vaginal discharge and lower abdominal discomfort that has been going on for approximately 1 month. The patient also reports dyspareunia. She is sexually active with one partner. She has felt feverish, but did not take her temperature at home. The patient saw her primary care physician today. Pelvic exam was performed. She was reportedly diagnosed with PID. She was prescribed an antibiotic, which she tried to car pick up driver prior to arrival. Apparently, insurance authorization is needed. This reportedly may take 3 days. Patient also reports nausea with a few episodes of vomiting. No changes in bowel movements. Her last bowel movement was earlier today. Her last menses was early last month. Review of Systems 10 system review performed and negative unless noted in HPI or below Past Medical/Surgical History Medical Problems: (1) Bronchitis (2) Carpal tunnel syndrome (3) Cellulitis (4) Diabetes mellitus (5) sacral fx Family History Diabetes mellitus Hypertension Kidney stones Social History Smoking Status: Current Every Day Smoker Alcohol Use: occasionally Marital Status: single Housing Status: lives with family Occupation Status: unemployed Current/Historical Medications Scheduled Amphetamine-Dextroamphetamine 15MG (Adderall Xr 15MG), 15 MG PO QD@1200 Amphetamine-Dextroamphetamine 25MG (Adderall Xr 25MG), 25 MG PO QAM Cetirizine HCl (Ra Allergy Relief), 10 MG PO DAILY Ergocalciferol (Vitamin D 50907 Unit), 50,000 INTER.UNIT PO WK Fluticasone Propionate (Nasal) (Flonase Allergy Relief), 1 SPRAY JAMIE BID Furosemide (Lasix), 20 MG PO QAM Ranitidine (Zantac), 300 MG PO BID Sertraline HCl (Sertraline HCl), 50 MG PO QAM Scheduled PRN Albuterol Hfa (Ventolin Hfa), 2 PUFFS INH QID PRN for Shortness of Breath Hydroxyzine Pamoate (Vistaril), 50 MG PO HS PRN for Anxiety Lorazepam (Lorazepam), 1 MG PO HS PRN for Anxiety Physical Exam Vital Signs Date Time Temp Pulse Resp B/P (MAP) Pulse Ox O2 Delivery O2 Flow Rate FiO2 10/22/17 00:05 64 20 104/54 99 Room Air 10/21/17 23:26 82 20 101/65 98 Room Air 10/21/17 20:45 36.9 85 18 109/67 99 Room Air Physical Exam VITALS: Vitals are noted on the nurse's note and reviewed by myself. Vital signs stable. GENERAL: 41-year-old female, morbidly obese,, in no acute distress, nondiaphoretic, well-developed well-nourished. SKIN: The skin was without rashes, erythema, edema, or bruising. There is no tenting of the skin. Capillary reflex less than 2 seconds. HEAD: Normocephalic atraumatic. MOUTH: Mucous membranes dry NECK: Supple without nuchal rigidity. No lymphadenopathy. Cervical spine is nontender. No JVD. HEART: Regular rate and rhythm without murmurs gallops or rubs. LUNGS: Clear to auscultation bilaterally without wheezes, rales or rhonchi. No accessory muscle use. ABDOMEN: Positive bowel sounds x 4.Soft, tenderness to palpation in the suprapubic region. No guarding or rebound tenderness. Patient refused pelvic exam MUSCULOSKELETAL: No muscle atrophy, erythema, or edema noted.. Strength 5/5 throughout. NEURO: Patient was alert and oriented to person place and time. Normal sensation to touch. No focal neurological deficits. Medical Decision & Procedures ER Provider Diagnostic Interpretation: Pelvic ultrasound IMPRESSION: 1. Limited study as above with nonvisualization of the bilateral ovaries. 2. Unremarkable sonographic appearance of the uterus. 3. Endometrium measures in the upper limits of normal, likely secondary to secretory phase of menstrual cycle. The above report was generated using voice recognition software. It may contain grammatical, syntax or spelling errors. Electronically signed by: Bhavin Mccarthy M.D. 10/21/2017 11:15 PM Dictated Date/Time: 10/21/2017 11:12 PM The status of this report is Signed. Draft = Not yet reviewed or approved by Radiologist. Signed = Reviewed and approved by Radiologist. Laboratory Results 10/21/17 21:23 Red Blood Count 4.75, Mean Corpuscular Volume 88.2, Mean Corpuscular Hemoglobin 29.5, Mean Corpuscular Hemoglobin Concent 33.4, Mean Platelet Volume 10.5, Neutrophils (%) (Auto) 64.5, Lymphocytes (%) (Auto) 27.2, Monocytes (%) (Auto) 6.1, Eosinophils (%) (Auto) 1.8, Basophils (%) (Auto) 0.2, Neutrophils # (Auto) 5.32, Lymphocytes # (Auto) 2.25, Monocytes # (Auto) 0.50, Eosinophils # (Auto) 0.15, Basophils # (Auto) 0.02 10/21/17 21:23 Test 10/21/17 21:23 10/21/17 21:33 White Blood Count 8.26 K/uL (4.8-10.8) Red Blood Count 4.75 M/uL (4.2-5.4) Hemoglobin 14.0 g/dL (12.0-16.0) Hematocrit 41.9 % (37-47) Mean Corpuscular Volume 88.2 fL (80-100) Mean Corpuscular Hemoglobin 29.5 pg (25-34) Mean Corpuscular Hemoglobin Concent 33.4 g/dl (32-36) Platelet Count 325 K/uL (130-400) Mean Platelet Volume 10.5 fL (7.4-10.4) Neutrophils (%) (Auto) 64.5 % Lymphocytes (%) (Auto) 27.2 % Monocytes (%) (Auto) 6.1 % Eosinophils (%) (Auto) 1.8 % Basophils (%) (Auto) 0.2 % Neutrophils # (Auto) 5.32 K/uL (1.4-6.5) Lymphocytes # (Auto) 2.25 K/uL (1.2-3.4) Monocytes # (Auto) 0.50 K/uL (0.11-0.59) Eosinophils # (Auto) 0.15 K/uL (0-0.5) Basophils # (Auto) 0.02 K/uL (0-0.2) RDW Standard Deviation 45.6 fL (36.4-46.3) RDW Coefficient of Variation 14.0 % (11.5-14.5) Immature Granulocyte % (Auto) 0.2 % Immature Granulocyte # (Auto) 0.02 K/uL (0.00-0.02) Anion Gap 5.0 mmol/L (3-11) Est Creatinine Clear Calc Drug Dose 126.1 ml/min Estimated GFR () 113.7 Estimated GFR (Non- 98.1 BUN/Creatinine Ratio 16.3 (10-20) Calcium Level 8.9 mg/dl (8.5-10.1) Total Bilirubin 0.3 mg/dl (0.2-1) Aspartate Amino Transf (AST/SGOT) 11 U/L (15-37) Alanine Aminotransferase (ALT/SGPT) 19 U/L (12-78) Alkaline Phosphatase 102 U/L (45-117) Total Protein 7.1 gm/dl (6.4-8.2) Albumin 3.2 gm/dl (3.4-5.0) Globulin 3.9 gm/dl (2.5-4.0) Albumin/Globulin Ratio 0.8 (0.9-2) Human Chorionic Gonadotropin, Qual NEG (NEG) Urine Color YELLOW Urine Appearance CLOUDY (CLEAR) Urine pH 6.5 (4.5-7.5) Urine Specific [place] 1.011 (1.000-1.030) Urine Protein NEG (NEG) Urine Glucose (UA) NEG (NEG) Urine Ketones NEG (NEG) Urine Occult Blood NEG (NEG) Urine Nitrite NEG (NEG) Urine Bilirubin NEG (NEG) Urine Urobilinogen NEG (NEG) Urine Leukocyte Esterase LARGE (NEG) Urine WBC (Auto) 10-30 /hpf (0-5) Urine RBC (Auto) 0-4 /hpf (0-4) Urine Hyaline Casts (Auto) 1-5 /lpf (0-5) Urine Epithelial Cells (Auto) >30 /lpf (0-5) Urine Bacteria (Auto) NEG (NEG) Medications Administered Medications (Trade) Dose Ordered Sig/Nicholas Route Start Time Stop Time Status Last Admin Dose Admin Sodium Chloride 1,000 ml @ 999 mls/hr Q1H1M ONCE IV 10/21/17 21:30 10/21/17 22:30 DC 10/21/17 21:30 999 MLS/HR Ondansetron HCl (Zofran Inj) 4 mg Q2H PRN IV 10/21/17 21:30 10/22/17 01:16 DC 10/21/17 21:38 4 MG Morphine Sulfate (MoRPHine SULFATE INJ) 4 mg Q1H PRN IV 10/21/17 21:30 10/22/17 01:16 DC 10/21/17 22:42 4 MG Ceftriaxone Sodium 250 mg/ Dextrose 27.5 ml @ 55 mls/hr ONE STAT IV 10/21/17 22:36 10/21/17 23:05 DC 10/21/17 23:17 55 MLS/HR Ondansetron HCl (Zofran Inj) 4 mg NOW STAT IV 10/21/17 22:36 10/21/17 22:39 DC 10/21/17 23:17 4 MG Azithromycin (Zithromax Tab) 1,000 mg NOW ONCE PO 10/21/17 22:45 10/21/17 22:46 DC 10/21/17 23:18 1,000 MG Clindamycin Phosphate (Cleocin 2% Vag Cr) 1 appln ONE STAT PV 10/21/17 22:36 10/21/17 22:39 DC 10/21/17 23:17 1 APPLN Acetaminophen/ Hydrocodone Bitart ([place] 5/325mg Home Pack) 1 homepack UD ONCE PO 10/21/17 23:45 10/21/17 23:46 DC 10/22/17 00:04 1 HOMEPACK Ondansetron HCl (ZOFRAN ODT 4MG Home Pack) 1 homepack UD ONCE PO 10/21/17 23:45 10/21/17 23:46 DC 10/22/17 00:04 1 HOMEPACK ED Course Patient was seen and examined Vital signs including blood pressure were reviewed medications list was verified with patient Labs were obtained, and a saline lock was established The patient was medicated with morphine and Zofran. She was hydrated with 1 L of normal saline. Imaging was performed and reviewed The patient was recessed after ultrasound. She was having more pain. She was given an additional dose of Zofran and morphine. We thoroughly reviewed her results. She voiced understanding. The patient was given ceftriaxone 250 mg IV. She was given azithromycin 1 g by mouth. She was also given clindamycin vaginal cream. We thoroughly reviewed her results. She voiced understanding, and was comfortable being discharged home. She was given home packs of [place] and Zofran. I reviewed discharge instructions the patient. They voiced understanding and had no further questions. Medical Decision Differential diagnosis: PID, STD, vaginal candidiasis, UTI, ureteral stone, bowel obstruction, ovarian torsion, ectopic This patient is a 41-year-old female presents to the emergency department with lower abdominal pain, vaginal discharge and dyspareunia; reportedly, diagnosed with PID earlier today. On exam, she had mild suprapubic tenderness. She did not have any guarding or rebound tenderness. She did appear slightly dehydrated. The patient's labs reveal no leukocytosis. She declined a pelvic exam, which was done earlier today. I believe this is reasonable. The patient is afebrile. A pelvic ultrasound was performed and did not show any acute abnormalities. The patient was reportedly prescribed doxycycline, terconazole vaginal suppositories and clindamycin vaginal cream per her outpatient records. Patient had problems with insurance getting these filled. I will treat the patient for PID in the emergency department. She was treated with ceftriaxone IV 250 mg, azithromycin 1 g p.o. in addition to clindamycin vaginal cream. She will follow-up closely with her primary care physician, and agrees to return to the emergency department with any new or worsening symptoms. I did advise the patient to also get established with an [facility] in [facility] The patient seems comfortable with this plan. Medication Reconcilliation Current Medication List: was personally reviewed by me Blood Pressure Screening Patient's blood pressure: Normal blood pressure Impression Primary Impression: PID (acute pelvic inflammatory disease) Departure Information Dispostion Home / Self-Care Condition GOOD Referrals Swetha Gil D.O. (PCP) Vladimir Espinosa MD Patient Instructions My [facility] Additional Instructions You have been evaluated in the emergency department for lower abdominal pain, vaginal discharge and painful intercourse. Lab work was performed in the ER. No significant abnormalities were noted. An ultrasound also did not show any significant abnormalities. Please follow-up with your primary care physician. Call tomorrow morning for a follow-up appointment. They also will be able to go over your culture results. You were treated in the emergency department for pelvic inflammatory disease with ceftriaxone and azithromycin. Please use the vaginal cream every night for 3 nights Please also call the [facility] doctor for close follow-up appointment Do not hesitate to return to the emergency department with any new, worsening or concerning symptoms; especially, fever, uncontrolled vomiting or worsening pain
[2017-10-21 22:16] LABS: ALBUMIN 3.2 gm/dl (3.4-5.0); CALCIUM 8.9 mg/dl (8.5-10.1); CREATININE 0.76 mg/dl (0.60-1.20); POTASSIUM 4.2 mmol/L (3.5-5.1)
[2017-10-21 22:18] LABS: TOTAL PROTEIN 7.1 gm/dl (6.4-8.2)
[2017-10-21] MEDS ORDERED: ONDANSETRON INJ 2 MG/ML 2 ML VIAL IV STA (22:36)
[2017-10-21] MEDS ORDERED: CEFTRIAXONE SOD INJ 250 MG in DEXTROSE 5% 25ML 25 ML IV STA (22:36)
[2017-10-21] MEDS ORDERED: CLINDAMYCIN PHOS 2% VAG CR 40 GM TUBE PV STA (22:36)
[2017-10-21] MEDS ORDERED: AZITHROMYCIN 250 MG TAB PO ONE (22:45)
[2017-10-21] MEDS ORDERED: NORCO 5/325MG HOME PACK PO ONE ×2 (22:45→23:45)
--- NOTE | 2017-10-21 23:16 | DIAGNOSTIC IMAGING REPORT ---
TRANSVAG-FEMALE PELVIS HISTORY: 41 years-old Female discharge abd pain dyspareunia acute lower abdominal pain with dyspareunia. History of prior . COMPARISON: Pelvic ultrasound 07/30/2016, CT abdomen and pelvis 09/27/2017 TECHNIQUE: Multiple real-time sonographic images of the deep pelvic structures were obtained transvaginally assessing grayscale appearance and color flow FINDINGS: Anteflexed uterus measures 11.1 x 5.4 x 5.6 cm. Nabothian cysts are noted in addition to scar of the lower uterine segment. No focal myometrial mass lesions identified. Endometrium measures the upper limits of normal at 1.6 cm. Bilateral ovaries are not diagnostically visualized. No adnexal mass lesions or significant free pelvic fluid. Study is limited secondary to patient body habitus and patient cooperation. IMPRESSION: 1. Limited study as above with nonvisualization of the bilateral ovaries. 2. Unremarkable sonographic appearance of the uterus. 3. Endometrium measures in the upper limits of normal, likely secondary to secretory phase of menstrual cycle. The above report was generated using voice recognition software. It may contain grammatical, syntax or spelling errors. Electronically signed by: Bhavin Mccarthy M.D. 10/21/2017 11:15 PM Dictated Date/Time: 10/21/2017 11:12 PM
[2017-10-21] MEDS ORDERED: ONDANSETRON HOME PACK 4MG OD TAB PO ONE (23:45)
[2017-10-21] MEDS ORDERED: VNTHFA/IN INH (23:49)
[2017-10-22 00:05] VITALS: BP 104/54; PULSE 64; O2SAT 99
== END 2017-10-22 00:12 | disposition home or self-care (01) ==
LOC: C.EDB 20:32
DX: N73.9 Female pelvic inflammatory disease, unspecified (principal); R11.2 Nausea with vomiting, unspecified; E11.9 Type 2 diabetes mellitus without complications; Z79.899 Other long term (current) drug therapy; Z83.3 Family history of diabetes mellitus; Z82.49 Family history of ischemic heart disease and other diseases of the circulatory system; Z84.1 Family history of disorders of kidney and ureter; F17.200 Nicotine dependence, unspecified, uncomplicated

== ENCOUNTER 2018-04-02 17:42 | Emergency (ER) | payer OTHER ==
[~2018-04-02] VITALS: Ht 160 cm; Wt 127.8 kg
[~2018-04-02 17:42] MED LIST changes: -AMPH20TA2 PO; -ATV/1 PO; -CETI10TA84 PO; -ERGO500037 PO; -FLUT0.15 NAE; -FURO-85 PO; -IPRA0.03 NAE; +MTR800 PO; -ONDA4TAB46 PO; +OXYC-737 PO; -RANI300T2 PO; +RIVA1TAB PO
[2018-04-02 17:47] VITALS: Ht 160 cm; Wt 127.8 kg
[2018-04-02] MEDS ORDERED: OXYCODONE/ACETAMINOPHEN 5-325 TAB PO STA (18:04)
--- NOTE | 2018-04-02 18:24 | EMERGENCY ROOM VISIT NOTE ---
History First contact with patient: 17:52 Chief Complaint: VAGINAL BLEEDING Stated Complaint: BLEEDING ( SENT ME UP) History of Present Illness The patient is a 42 year old female who presents to the Emergency Room with complaints of heavy vaginal bleeding that started 2 days ago. The patient says that her menses is usually very regular. Her last menstrual period was 2 weeks ago. She reports heavy clotting. She is using both tampons and pads. She said that she has gone through over 20 tampon since yesterday. She is also having significant lower abdominal cramping. She has tried Midol and Tylenol with minimal relief of her symptoms. She denies any feverish symptoms. She is sexually active with one partner. She denies any chance of . No dyspareunia reported. The patient is with 1 miscarriage (she had a set of twins). The patient also reports feeling lightheaded. She does not have an [facility] doctor. She contacted [facility] primary care today who sent her here for further evaluation. Of note, the patient takes Xarelto for DVTs Review of Systems 10 system review performed and negative unless noted in HPI or below Past Medical/Surgical History Medical Problems: (1) Bronchitis (2) Carpal tunnel syndrome (3) Cellulitis (4) Diabetes mellitus (5) sacral fx Family History Diabetes mellitus Hypertension Kidney stones Social History Smoking Status: Current Every Day Smoker Alcohol Use: occasionally Marital Status: single Housing Status: lives with family Occupation Status: unemployed Current/Historical Medications Scheduled Amphetamine-Dextroamphetamine 15MG (Adderall Xr 15MG), 15 MG PO QD@1200 Amphetamine-Dextroamphetamine 25MG (Adderall Xr 25MG), 25 MG PO QAM Azelastine Hcl (Astelin Nasal Two Dot), 2 SPRAYS JAMIE BID Cetirizine HCl (All Day Allergy), 10 MG PO DAILY Ergocalciferol (Vitamin D 79523 Unit), 50,000 INTER.UNIT PO WK Fluticasone Propionate (Fluticasone Propionate), 2 SPRAYS JAMIE BID Furosemide (Furosemide), 20 MG PO QAM Ranitidine HCl (Ranitidine HCl), 150 MG PO BID Rivaroxaban (Xarelto), 20 MG PO DAILY Sertraline HCl (Sertraline HCl), 50 MG PO QAM Sertraline HCl (Sertraline HCl), 25 MG PO QAM Scheduled PRN Hydrocodone/Acetaminophen 5MG/325MG ([place] 5MG/325MG), 1 TABLET PO Q4H PRN for Pain Lorazepam (Lorazepam), 1 MG PO HS PRN for Anxiety Physical Exam Vital Signs Date Time Temp Pulse Resp B/P (MAP) Pulse Ox O2 Delivery O2 Flow Rate FiO2 04/02/18 20:55 36.8 74 18 116/75 97 04/02/18 20:45 74 18 116/75 97 Room Air 04/02/18 20:32 76 98/60 87 133/78 94 110/75 04/02/18 20:07 65 18 116/58 97 Room Air 04/02/18 18:50 67 18 126/80 99 Room Air 04/02/18 18:34 70 04/02/18 17:47 36.8 86 18 133/90 99 Room Air Physical Exam GENERAL: 42-year-old obese female, in no acute distress, nondiaphoretic, well- developed well-nourished. SKIN: The skin was without rashes, erythema, edema, or bruising. HEAD: Normocephalic atraumatic. EYES: Conjunctivae without injection, sclerae without icterus. Extraocular movements intact. MOUTH: Mucous membranes moist. NECK: Supple without nuchal rigidity. HEART: Regular rate and rhythm without murmurs gallops or rubs. LUNGS: Clear to auscultation bilaterally without wheezes, rales or rhonchi. No accessory muscle use. ABDOMEN: Positive bowel sounds x 4.Soft, mild tenderness to palpation in the suprapubic region, without organomegaly. No guarding or rebound tenderness. MUSCULOSKELETAL: No muscle atrophy, erythema, or edema noted. Full range of motion in all extremities. No tenderness to palpation. Normal gait. Strength 5/5 throughout. NEURO: Patient was alert and oriented to person place and time. Normal sensation to touch. No focal neurological deficits. Medical Decision & Procedures ER Provider Diagnostic Interpretation: Pelvic ultrasound IMPRESSION: 1. Slightly heterogeneous endometrium. This appearance could be within the range of normal depending on the menstrual cycle as is the thickness given the patient's premenopausal status. Gynecologic outpatient follow-up recommended. 2. Normal ovaries. Electronically signed by: Seng Alexandre M.D. 04/02/2018 7:44 PM Dictated Date/Time: 04/02/2018 7:41 PM The status of this report is Signed. Draft = Not yet reviewed or approved by Radiologist. Signed = Reviewed and approved by Radiologist. <AttendingPhy></AttendingPhy> <FamilyPhy>Jeannette Nunez D.O.</FamilyPhy> < PrimaryPhy>Jeannette Nunez D.O.</PrimaryPhy> <UnitNumber>[id number]</UnitNumber > <VisitNumber>[id number]</VisitNumber Laboratory Results 04/02/18 18:18 Red Blood Count 4.60, Mean Corpuscular Volume 88.7, Mean Corpuscular Hemoglobin 29.6, Mean Corpuscular Hemoglobin Concent 33.3, Mean Platelet Volume 10.7, Neutrophils (%) (Auto) 74.9, Lymphocytes (%) (Auto) 19.9, Monocytes (%) (Auto) 3.7, Eosinophils (%) (Auto) 1.3, Basophils (%) (Auto) 0.1, Neutrophils # (Auto) 5.65, Lymphocytes # (Auto) 1.50, Monocytes # (Auto) 0.28, Eosinophils # (Auto) 0.10, Basophils # (Auto) 0.01 04/02/18 18:18 Test 04/02/18 18:18 White Blood Count 7.55 K/uL (4.8-10.8) Red Blood Count 4.60 M/uL (4.2-5.4) Hemoglobin 13.6 g/dL (12.0-16.0) Hematocrit 40.8 % (37-47) Mean Corpuscular Volume 88.7 fL (80-100) Mean Corpuscular Hemoglobin 29.6 pg (25-34) Mean Corpuscular Hemoglobin Concent 33.3 g/dl (32-36) Platelet Count 344 K/uL (130-400) Mean Platelet Volume 10.7 fL (7.4-10.4) Neutrophils (%) (Auto) 74.9 % Lymphocytes (%) (Auto) 19.9 % Monocytes (%) (Auto) 3.7 % Eosinophils (%) (Auto) 1.3 % Basophils (%) (Auto) 0.1 % Neutrophils # (Auto) 5.65 K/uL (1.4-6.5) Lymphocytes # (Auto) 1.50 K/uL (1.2-3.4) Monocytes # (Auto) 0.28 K/uL (0.11-0.59) Eosinophils # (Auto) 0.10 K/uL (0-0.5) Basophils # (Auto) 0.01 K/uL (0-0.2) RDW Standard Deviation 44.3 fL (36.4-46.3) RDW Coefficient of Variation 13.6 % (11.5-14.5) Immature Granulocyte % (Auto) 0.1 % Immature Granulocyte # (Auto) 0.01 K/uL (0.00-0.02) Anion Gap 7.0 mmol/L (3-11) Est Creatinine Clear Calc Drug Dose 123.7 ml/min Estimated GFR () 109.4 Estimated GFR (Non- 94.4 BUN/Creatinine Ratio 15.5 (10-20) Calcium Level 8.5 mg/dl (8.5-10.1) Total Bilirubin 0.2 mg/dl (0.2-1) Aspartate Amino Transf (AST/SGOT) 16 U/L (15-37) Alanine Aminotransferase (ALT/SGPT) 20 U/L (12-78) Alkaline Phosphatase 104 U/L (45-117) Total Protein 7.2 gm/dl (6.4-8.2) Albumin 3.0 gm/dl (3.4-5.0) Globulin 4.2 gm/dl (2.5-4.0) Albumin/Globulin Ratio 0.7 (0.9-2) Human Chorionic Gonadotropin, Qual NEG (NEG) Medications Administered Medications (Trade) Dose Ordered Sig/Nicholas Route Start Time Stop Time Status Last Admin Dose Admin Oxycodone/ Acetaminophen (Percocet 5-325mg Tab) 1 tab NOW STAT PO 04/02/18 18:04 04/02/18 18:07 DC 04/02/18 18:23 1 TAB Acetaminophen/ Hydrocodone Bitart ([place] 5/325mg Home Pack) 1 homepack UD ONCE PO 04/02/18 21:00 04/02/18 21:01 DC 04/02/18 20:59 1 HOMEPACK ED Course Patient was seen and examined Vital signs including blood pressure were reviewed medications list was verified with patient Labs were obtained, and a saline lock was established The patient was medicated with Percocet 1 tab. She was hydrated with 1 L of normal saline. Imaging was performed and reviewed Upon reassessment, the patient was resting more comfortably. We discussed her results. She voiced understanding. She was comfortable being discharged home. The counter caser were involved. They will make a follow-up appointment for the patient. I reviewed discharge instructions the patient. They voiced understanding and had no further questions. Medical Decision Differential diagnosis: Abnormal vaginal bleeding, menorrhagia, metrorrhagia, uterine fibroids, endometrial polyps, thyroid abnormality, anemia secondary to acute blood loss, ectopic , intrauterine , miscarriage among others were entertained This patient is a 42-year-old female presents to emergency department complaining of abnormal/heavy vaginal bleeding. She is typically very regular. On exam, the patient's vital signs are stable. An ultrasound shows a mildly heterogenous uterus. There were no other abnormalities. She is not . Her H&H is stable. I believe she is stable to be discharged home. Arrangements will be made for the patient to follow-up with her primary care physician and have her CBC rechecked. She was given a very short course of narcotics for pain as she cannot take NSAIDs. She will return to the ED with any concerning symptoms. This chart was completed in part utilizing [employer] Speech Voice Recognition software. Attempts were made to minimize the grammatical errors, random word insertions, pronoun errors and incomplete sentences. Any formal questions or concerns about the content, text or information contained within the body of this dictation should be directly addressed to the provider for clarification. Medication Reconcilliation Current Medication List: was personally reviewed by me Blood Pressure Screening Patient's blood pressure: Normal blood pressure Impression Primary Impression: Vaginal bleeding Departure Information Dispostion Home / Self-Care Condition GOOD Prescriptions Hydrocodone/Acetaminophen 5MG/325MG ([place] 5MG/325MG) Tab 1 TABLET PO Q4H Y for Pain, #9 TAB For Initial Treatment Prov: Cierra Whitaker PA-C 04/02/18 Referrals Jeannette Nunez D.O. (PCP) Patient Instructions My [facility] Additional Instructions You were evaluated in the emergency department for heavy vaginal bleeding. Blood counts at this point are stable. Please take hydrocodone 1 tab every 4 hours as needed for severe pain only. Please do not drink alcohol or drive will taking this medication. This medication may cause constipation. I recommend a stool softener. Continue other medications as prescribed Please follow-up with your primary care physician next week as instructed. Please have a repeat CBC (blood draw) in 3-5 days. Do not hesitate to return to the ED with any concerning symptoms; especially, bleeding through more than 4 pads per hour, fever or passing out
[2018-04-02 18:34] LABS: BASO % 0.1 %; BASO ABS # 0.01 K/uL (0-0.2); EOS % 1.3 %; HEMATOCRIT 40.8 % (37-47); HEMOGLOBIN 13.6 g/dL (12.0-16.0); IG# 0.01 K/uL (0.00-0.02); LYMPH % 19.9 %; MEAN CELL VOLUME 88.7 fL (80-100); MEAN CORPUSCULAR HEMOGLOBIN 29.6 pg (25-34); MEAN CORPUSCULAR HGB CONC 33.3 g/dl (32-36); MEAN PLATELET VOLUME 10.7 fL (7.4-10.4); MONO % 3.7 %; MONO ABS # 0.28 K/uL (0.11-0.59); NEUT % 74.9 %; NEUT ABS # 5.65 K/uL (1.4-6.5); PLATELET COUNT 344 K/uL (130-400); RED CELL DISTRIBUTION WIDTH CV 13.6 % (11.5-14.5); RED CELL DISTRIBUTION WIDTH SD 44.3 fL (36.4-46.3); WHITE BLOOD COUNT 7.55 K/uL (4.8-10.8)
[2018-04-02] MEDS ORDERED: XRL20 PO (18:38)
[2018-04-02 19:01] LABS: CALCIUM 8.5 mg/dl (8.5-10.1); CREATININE 0.78 mg/dl (0.60-1.20); POTASSIUM 3.9 mmol/L (3.5-5.1); TOTAL PROTEIN 7.2 gm/dl (6.4-8.2)
--- NOTE | 2018-04-02 19:46 | DIAGNOSTIC IMAGING REPORT ---
PELVIC COMPLETE NON OB CLINICAL HISTORY: 42 years-old Female presenting with heavy vaginal bleeding, , last menstrual period 03/13/2018, bleeding accompanied by cramping which started 3 days ago, on blood thinners. TECHNIQUE: Real-time grayscale and color and spectral Doppler ultrasound imaging of the pelvis was performed first using a transabdominal probe and subsequently transvaginal for better characterization. COMPARISON: 10/21/2017. FINDINGS: Uterus: Normal. Anteverted retroflexed. The uterus measures 10.4 x 5.3 x 5.6 cm. Endometrial stripe measures 10 mm in thickness. Endometrium contains multiple hyperechogenic foci in the lower uterine segment, possibly foci of calcification. Remaining endometrium slightly heterogeneous. Cervix contains numerous nabothian cysts. Right adnexa: Right ovary normal. Right ovary measures 2.9 x 1.6 x 2.1 cm. Normal color Doppler flow and arterial and venous waveforms within the ovarian parenchyma. Left adnexa: Left ovary normal. Left ovary measures 1.8 x 2.1 x 1.5 cm. Normal color Doppler flow and arterial and venous waveforms within the ovarian parenchyma. Other: No free fluid. IMPRESSION: 1. Slightly heterogeneous endometrium. This appearance could be within the range of normal depending on the menstrual cycle as is the thickness given the patient's premenopausal status. Gynecologic outpatient follow-up recommended. 2. Normal ovaries. Electronically signed by: Seng Alexandre M.D. 04/02/2018 7:44 PM Dictated Date/Time: 04/02/2018 7:41 PM
[2018-04-02] MEDS ORDERED: HYDR-5688 PO (20:35)
[2018-04-02 20:55] VITALS: BP 116/75; PULSE 74; TEMP 36.8; O2SAT 97
[2018-04-02] MEDS ORDERED: NORCO 5/325MG HOME PACK PO ONE (21:00)
[2018-04-02] MEDS ORDERED: AMPH25CA PO (21:29)
[2018-04-02] MEDS ORDERED: ATV1 PO (21:29)
[2018-04-02] MEDS ORDERED: ERGO500011 PO (21:29)
[2018-04-02] MEDS ORDERED: RANI150T2 PO (22:55)
[2018-04-02] MEDS ORDERED: FLNIN/ NAE (22:55)
[2018-04-02] MEDS ORDERED: SERT1TAB88 PO (22:55)
[2018-04-02] MEDS ORDERED: LSX20 PO (22:55)
[2018-04-02] MEDS ORDERED: ZYR10 PO (22:55)
[2018-04-02] MEDS ORDERED: ASTN NAE (22:55)
== END 2018-04-02 20:56 | disposition home or self-care (01) ==
LOC: C.EDB 17:43 → C.EDC 20:56
DX: N93.9 Abnormal uterine and vaginal bleeding, unspecified (principal); N85.8 Other specified noninflammatory disorders of uterus; E11.9 Type 2 diabetes mellitus without complications; Z79.01 Long term (current) use of anticoagulants; Z79.899 Other long term (current) drug therapy; F17.200 Nicotine dependence, unspecified, uncomplicated

== ENCOUNTER 2019-12-27 18:27 | Inpatient (IN) ==
[2019-12-27] MEDS ORDERED: MoRPHine SULFATE 4 MG/ML 1 ML CARP\\VIAL IV STA ×3 (19:23→23:51)
--- NOTE | 2019-12-27 19:26 | Emergency Department Note ---
Impression & Plan Preseptal cellulitis, Acute facial pain, High serum chloride ED Provider Note NAME: JOSE BLANCO AGE: 44 SEX: F : 1975 ARRIVES VIA: Walk-In INFORMANT: Patient ED PROVIDER(S): Jerrell Mccauley DO CHIEF COMPLAINT: Swelling and pain in the left face HPI: Patient is a 44-year-old female who presents the ER for left-sided facial pain. It started on Mother's Day and has been gradually getting worse. She was seen here in the ER and discharged to follow-up as an outpatient. Was evaluated by her PCP and placed on doxycycline secondary to allergies. She has had increased swelling of her face as well as redness. She notes she has significant pain on her left teeth tracking all the way up to her eye. She has swelling around her eye and some mild pain with movement of her eye. She denies any fevers. No chest pain shortness of breath nausea vomiting or diarrhea. No dysuria urgency or frequency. No recent trips or travel. No loss of vision. No headache. ROS: See above HPI for pertinent positives & negatives. A total of 10 systems reviewed and were otherwise negative. PAST MEDICAL HISTORY:See Below PAST SURGICAL HISTORY:See Below FAMILY HISTORY:See Below SOCIAL HISTORY:See Below HOME MEDICATIONS:See Below ALLERGIES:See Below VITALS:See Below PHYSICAL EXAMINATION: GENERAL: Sitting up in bed, morbidly obese, sitting up in bed, agitated EYE EXAM: normal conjunctiva. PERRL and EOM's grossly intact. Erythema under the left orbit which is swollen tracking down to the left cheek. OROPHARYNX: no exudate, no erythema, lips, buccal mucosa, and tongue normal and mucous membranes are moist. Tenderness throughout the left upper dentition. NECK: supple, no nuchal rigidity, no adenopathy, non-tender LUNGS: Clear to auscultation. Normal chest wall mechanics HEART: no murmurs, S1 normal and S2 normal ABDOMEN: abdomen soft, non-tender, normo-active bowel sounds, no masses, no rebound or guarding. BACK: Back is symmetrical on inspection and there is no deformity, no midline tenderness, no CVA tenderness. SKIN: no rashes and no bruising UPPER EXTREMITIES: upper extremities are grossly normal. LOWER EXTREMITIES: No pitting edema. NEURO EXAM: Normal sensorium, cranial nerves II-XII grossly intact, normal speech, no gross weakness of arms, no gross weakness of legs. MEDICAL DECISION MAKING: Patient is a 44-year-old female that presents the ER for left-sided facial pain swelling and redness. This started on Mother's Day and has been gradually getting worse. She is been on doxycycline for the past 3 days for this and symptoms have been worsening. IV was established blood work was obtained. Labs show no significant leukocytosis or anemia. BMP was unremarkable. Patient was given 2 g of IV Rocephin and oral clindamycin. CT of the face shows a likely preseptal cellulitis. She is been on antibiotics for the past 3 days with worsening symptoms. Discussed with the hospitalist after updating the patient at bedside for observation. Patient was given IV fluids as well as 2 dose of IV morphine while in the ER. Triage Nursing notes reviewed. Prior medical records reviewed Vital Signs: reviewed and remarkable for tachycardic Differential diagnosis: Dental caries, dental abscess, Ludwigs angina, Vincent angina, dental fracture, facial cellulitis, parotitis, osteomyelitis, sinus infection, peritonsillar abscess, preseptal cellulitis, septal cellulitis,. ER treatment provided: See below Diagnostics interpreted by me: ECG: none Cardiac Monitoring: An order was placed for continuous cardiac monitoring. The monitor shows a rate of 75 with sinus rhythm. Laboratory studies: As stated above and show below. Imaging studies: CT of the face shows preseptal cellulitis. Consultation(s): Discussed with Dr. Cortez for observation. ED COURSE: Procedures: none Critical Care: None Past Med/Surg History Social History Preferred Language: Portuguese marital status: Current Living Situation: Family current occupational status: employed Feels Safe at Home: Yes Smoking Status: Never smoker Hx Alcohol Use: No Allergies Allergies Allergy/AdvReac Type Severity Reaction Status Date / Time Bactrim Allergy Severe ANAPHYLAXIS Verified 04/02/18 17:47 gabapentin Allergy Severe SHORTNESS Verified 10/03/19 19:12 OF BREATH sulfamethoxazole Allergy Severe ANAPHYLAXIS Verified 10/03/19 19:12 tramadol Allergy Severe FEELS LIKE Verified 10/03/19 19:12 BUGS ON BODY trimethoprim Allergy Severe ANAPHYLAXIS Verified 10/03/19 19:12 promethazine Allergy Intermediate HIVES Verified 10/03/19 19:12 ketorolac Allergy Mild rash Verified 10/03/19 19:12 penicillinase Allergy Unknown unknown Verified 10/03/19 19:12 propoxyphene Allergy Unknown Unknown Verified 10/03/19 19:12 walnut AdvReac Severe ASTHMA Verified 10/03/19 19:12 EXACERBATION basil AdvReac Intermediate headaches Verified 10/03/19 19:12 codeine AdvReac Intermediate GI SYMPTOMS Verified 10/03/19 19:12 metronidazole AdvReac Intermediate THRUSH Verified 10/03/19 19:12 prednisone AdvReac Intermediate vomiting Verified 10/03/19 19:12 venlafaxine AdvReac Intermediate Increase Verified 10/03/19 19:12 agitation. sumatriptan AdvReac Mild RASH Verified 10/03/19 19:12 Home Meds Home Medications Medication Instructions Recorded Confirmed cetirizine 10 mg PO QAM 08/02/18 12/27/19 ergocalciferol (vitamin D2) 50,000 unit PO WK 08/02/18 12/27/19 [Vitamin D2] sertraline 75 mg PO QAM 08/02/18 12/27/19 fluticasone propionate [Flonase 2 spray INTRANASAL DAILY PRN 10/20/18 12/27/19 Allergy Relief] folic acid 6 mg PO QAM 03/19/19 12/27/19 methotrexate sodium See Rx Instructions .ROUTE .COMPLEX 12/25/19 12/27/19 pantoprazole [Protonix] 0 mg PO DAILY 12/25/19 12/27/19 doxycycline hyclate 100 mg PO BID 12/27/19 12/27/19 hydrocodone-acetaminophen [[place]] 1 tab PO Q6H PRN 12/27/19 12/27/19 Results & Data (ED) Vital Signs Vital Signs - 24 hr 12/27/19 18:28 12/27/19 20:23 12/27/19 21:34 Temperature 36.8 C Temperature Source Oral Pulse Rate 103 H Pulse Rate [Right Finger] 79 Respiratory Rate 19 20 Blood Pressure 133/84 Blood Pressure [Right Arm] Blood Pressure Mean 100 Blood Pressure Mean [Right Arm] Blood Pressure Position Sitting Pulse Oximetry 98 95 Oxygen Delivery Method Room Air Room Air Sepsis Recent Fever Within 48 Hours No Sepsis Action Taken by Nursing No Action Required 12/27/19 21:37 Temperature Temperature Source Pulse Rate Pulse Rate [Right Finger] Respiratory Rate Blood Pressure Blood Pressure [Right Arm] 141/82 H Blood Pressure Mean Blood Pressure Mean [Right Arm] 101 Blood Pressure Position Pulse Oximetry Oxygen Delivery Method Sepsis Recent Fever Within 48 Hours Sepsis Action Taken by Nursing Laboratory Data Result diagrams: 12/27/19 19:50 12/27/19 19:50 Lab Results 12/27/19 12/27/19 Range/Units 19:50 19:50 WBC 8.62 (4.8-10.8) K/uL RBC 4.54 (4.2-5.4) M/uL Hgb 12.9 (12.0-16.0) g/dL Hct 40.2 (37-47) % MCV 88.5 (80-100) fL MCH 28.4 (25-34) pg MCHC 32.1 (32-36) g/dL RDW Std Deviation 46.2 (36.4-46.3) fL RDW Coeff of Rodrigo 14.3 (11.5-14.5) % Plt Count 351 (130-400) K/uL MPV 11.0 H (7.4-10.4) fL Immature Gran % (Auto) 0.2 % Neut % (Auto) 78.0 % Lymph % (Auto) 14.5 % [place] % (Auto) 5.1 % Eos % (Auto) 2.0 % Baso % (Auto) 0.2 % Immature Gran # (Auto) 0.02 (0.00-0.02) K/uL Neut # (Auto) 6.72 H (1.4-6.5) K/uL Lymph # (Auto) 1.25 (1.2-3.4) K/uL [place] # (Auto) 0.44 (0.11-0.59) K/uL Eos # (Auto) 0.17 (0-0.5) K/uL Baso # (Auto) 0.02 (0-0.2) K/uL Sodium 140 (136-145) mmol/L Potassium 3.5 (3.5-5.1) mmol/L Chloride 110 H (98-107) mmol/L Carbon Dioxide 26 (21-32) mmol/L Anion Gap 4.0 (3-11) BUN 8 (7-18) mg/dl Creatinine 0.78 (0.6-1.2) mg/dl Est Cr Clr Drug Dosing 124.8 ml/min Est GFR ( Amer) 107.9 Est GFR (Non-Af Amer) 93.1 BUN/Creatinine Ratio 10.0 (10-20) Glucose 94 (70-99) mg/dl Calcium 8.7 (8.5-10.1) mg/dl Administered Medications Ioversol (Optiray 320 125ml) 93 ml IV ONCE PRN PRN Reason: Interaction Checking Stop: 12/31/19 22:09 Last Admin: 12/27/19 22:12 Dose: 93 ml Documented by: [id number] Discontinued Medications Ceftriaxone Sodium (Rocephin) 2,000 mg in 70 mls @ 140 mls/hr IV NOW STA Stop: 12/27/19 21:36 Last Infusion: 12/27/19 22:23 Dose: 0 mls/hr Documented by: [id number] Admin: 12/27/19 21:31 Dose: 140 mls/hr Documented by: [id number] Morphine Sulfate (Morphine Sulfate) 4 mg IV NOW STA Stop: 12/27/19 19:24 Last Admin: 12/27/19 19:54 Dose: 4 mg Documented by: [id number] Morphine Sulfate (Morphine Sulfate) 4 mg IV NOW STA Stop: 12/27/19 22:13 Last Admin: 12/27/19 22:22 Dose: 4 mg Documented by: [id number] Ondansetron HCl (Zofran) Confirm Administered Dose 4 mg .ROUTE .STK-MED ONE Stop: 12/27/19 20:01 Last Admin: 12/27/19 20:01 Dose: 4 mg Documented by: [id number] Discharge Plan Visit Data Chief Complaint: Facial Injury/Pain Stated Complaint: FACE SWELLING ED Provider: Jerrell Mccauley Discharge Problem: Preseptal cellulitis, Acute facial pain, High serum chloride Forms Stand Alone Forms: [facility] Prescriptions Prescriptions: No Action fluticasone propionate [Flonase Allergy Relief] 50 mcg/actuation Spr ay,Suspension 2 spray INTRANASAL DAILY PRN (Reason: Allergy Symptoms) RF: 0 hydrocodone-acetaminophen [[place]] 5-325 mg tablet 1 tab PO Q6H PRN (Reason: Pain) RF: 0 doxycycline hyclate 100 mg Tablet 100 mg PO BID RF: 0 cetirizine 10 mg tablet 10 mg PO QAM RF: 0 ergocalciferol (vitamin D2) [Vitamin D2] 50,000 unit Capsule 50,000 unit PO WK RF: 0 sertraline 50 mg tablet 75 mg PO QAM RF: 0 folic acid 1 mg Tablet 6 mg PO QAM RF: 0 methotrexate sodium 25 mg/mL solution See Rx Instructions .ROUTE .COMPLEX RF: 0 pantoprazole [Protonix] 20 mg Tablet,Delayed Release (Dr/Ec) 0 mg PO DAILY RF: 0
[2019-12-27] MEDS ORDERED: ONDANSETRON INJ 2 MG/ML 2 ML VIAL ONE (20:00)
[2019-12-27 20:12] LABS: Basophils # (auto) 0.02 K/uL (0-0.2); Basophils % (auto) 0.2 %; Eosinophils # (auto) 0.17 K/uL (0-0.5); Hematocrit (blood only) 40.2 % (37-47); Hemoglobin 12.9 g/dL (12.0-16.0); Immature Granulocytes # (auto) 0.02 K/uL (0.00-0.02); Immature Granulocytes % (auto) 0.2 %; Lymphocytes # (auto) 1.25 K/uL (1.2-3.4); Lymphocytes % (auto) 14.5 %; Mean Corpuscular Hemoglobin 28.4 pg (25-34); Mean Corpuscular Hgb Conc 32.1 g/dL (32-36); Mean Corpuscular Volume 88.5 fL (80-100); Monocytes # (auto) 0.44 K/uL (0.11-0.59); Monocytes % (auto) 5.1 %; Neutrophils # (auto) 6.72 K/uL (1.4-6.5); Platelet Count 351 K/uL (130-400); RDW Coefficient of Variation 14.3 % (11.5-14.5); RDW Standard Deviation 46.2 fL (36.4-46.3); Red Blood Count 4.54 M/uL (4.2-5.4); White Blood Count 8.62 K/uL (4.8-10.8)
[2019-12-27 20:28] LABS: Calcium 8.7 mg/dl (8.5-10.1); Creatinine Clr Calc Pharmacy 124.8 ml/min; Est GFR (African American) 107.9; Est GFR (Non-African American) 93.1; Potassium 3.5 mmol/L (3.5-5.1)
[2019-12-27] MEDS ORDERED: cefTRIAXone SODIUM 2,000 MG/70 ML BAG IV STA (21:07)
[2019-12-27] MEDS ORDERED: OPTIRAY 320 125ml IV PRN (22:10)
--- NOTE | 2019-12-27 22:26 | CT Scan Report ---
CT facial bones w con CT DOSE: 367.89 mGy.cm CLINICAL HISTORY: Facial swelling. Possible orbital cellulitis. TECHNIQUE: Patient was scanned following administration of 93 cc Optiray 320. Sagittal and coronal re formatted images were acquired. A dose lowering technique was utilized adhering to the principles of ALARA. COMPARISON STUDY: Sinus CT scan performed October 09, 2015 FINDINGS: The visualized portions of intracranial contents are unremarkable. No orbital masses are visualized. No abnormalities of either globe are visualized. The postseptal space appears normal bilaterally. There is left periorbital edema, consistent with a preseptal cellulitis. There is no proptosis. There is no pathologic neck adenopathy. There is 7 mm left lobe thyroid nodule. No further follow-up is indicated a patient this age. No salivary gland masses are visualized. There is a left maxillary dental apical abscess IMPRESSION: 1. Left periorbital edema consistent with a preseptal cellulitis. 2. No evidence of post septal inflammatory change 3. Left maxillary dental apical abscess ACT 112: Negative or not required by law. Electronically signed by: Sylvester Sargent M.D. 12/27/2019 10:24 PM
[2019-12-27] MEDS ORDERED: CLINDAMYCIN HCL 150 MG CAP PO ONE (22:41)
[2019-12-28] MEDS ORDERED: FLUTICASONE PROPIONATE NA SPR 16 GM BTL PRN (00:49)
[2019-12-28] MEDS ORDERED: POLYETHYLENE (MIRALAX) 17 GM PACK PO PRN (00:49)
--- NOTE | 2019-12-28 01:03 | History and Physical Report ---
DATE OF ADMISSION: 12/27/2019 CHIEF COMPLAINT: Facial pain. HISTORY OF PRESENT ILLNESS: This is a 44-year-old female with past medical history significant for obesity, vitamin D deficiency, idiopathic scoliosis, fibromyalgia, carpal tunnel syndrome, migraine without aura, rheumatoid arthritis, major depression, tobacco use disorder, bipolar disorder, comes with left facial pain. The patient was in the ER yesterday complained of dental pain. She seem to lost her left maxillary filling several months ago and could not get a dental appointment because of the COVID. She was discharged from the ER with clindamycin. Then she saw the PCP and doxy was added, but it is not getting better. There is swelling in the left side of the face, cannot open her mouth, not able to eat. Denies any fever, chills. No blurred visions. Has left ear pain. No runny nose, no sore throat, no cough, no headache, no dizziness, no shortness of breath, no chest pain, no nausea, no abdominal pain. Normal bowel and bladder movements. No rash. Currently resting comfortably and hemodynamically stable. CT scan of the face in the ER shows left periorbital edema consistent with preseptal cellulitis, left maxillary dental apical abscess. ALLERGIES: BACTRIM, GABAPENTIN, TRAMADOL, KETOROLAC, PENICILLINS, PROPOXYPHENE, [place], BASIL, CODEINE, METRONIDAZOLE, PREDNISONE, VENLAFAXINE, SUMATRIPTAN. PAST MEDICAL HISTORY: As mentioned above. PAST SURGICAL HISTORY: Carpal tunnel surgery, , EGDs, diagnostic laparoscopy, ligation of oviduct, cholecystectomy, repair of the wrist joints. MEDICATIONS: The patient is on cetirizine 10 mg p.o. a.m., doxycycline 100 mg p.o. b.i.d., vitamin D 50,000 units p.o. weekly, Flonase 2 sprays intranasally daily p.r.n., folic acid 6 mg p.o. q.a.m., [place] 1 tablet p.o. q. 6 hours p.r.n., methotrexate as directed, Protonix 20 mg p.o. daily, sertraline 75 mg p.o. a.m. FAMILY HISTORY: Significant for paternal grandmother had Hodgkin's lymphoma. Mother had skin cancer. Maternal grandmother had diabetes, hypertension, lung disorder. SOCIAL HISTORY: , smokes 2-3 cigarettes a day for 20 years. No alcohol abuse, smokes marijuana as per the Epic 1 time a week. REVIEW OF SYMPTOMS: As per HPI. Rest of review of systems negative. PHYSICAL EXAMINATION: GENERAL: The patient is morbidly obese, not in acute distress. VITAL SIGNS: Temperature 36.8, pulse 84, respiratory rate 18, blood pressure 140/81, oxygen 99% room air. HEENT: No pallor, no icterus. Pupils equal, round, and reactive to light. Painful opening of the mouth. Swelling seen on the left orbit and left mandibular region with mild erythematous changes. NECK: No JVD, no neck masses, no carotid bruit. CARDIOVASCULAR: S1, S2, regular rate and rhythm, no murmur, no gallop. RESPIRATORY SYSTEM: Normal AP diameter. No accessory muscle use. No wheezing, no crackles. ABDOMEN: Soft, bowel sounds present, nontender. No distention. CENTRAL NERVOUS SYSTEM: Cranial nerves II-XII grossly intact. Nonfocal. EXTREMITIES: No edema, no erythema. LABORATORY DATA: WBC 8.6, hemoglobin 12.9, hematocrit 40.2, platelets 351. Sodium 140, potassium 3.5, chloride 110, bicarbonate 26, BUN 8, creatinine 0.7, serum glucose 94, calcium 8.7. Facial CT, left periorbital edema consistent with preseptal cellulitis. No evidence of postseptal inflammatory change, left maxillary dental apical abscess. ASSESSMENT AND PLAN: This is a 44-year-old female who presents with dental infection and left facial cellulitis. 1. Left facial cellulitis, mostly related to the left maxillary dental abscess. Has appointment with dentist on coming Wednesday. Failed outpatient treatment with p.o. clindamycin, which was started only yesterday. The patient has multiple allergies, we will continue with IV clindamycin and IV Rocephin. Follow the response. If not getting better, we will consult oral surgery in the hospital. If improvement, discharge to follow as outpatient with dentist. We will keep her n.p.o. for now, IV fluids, IV morphine p.r.n. 2. History of rheumatoid arthritis: We will hold methotrexate. 3. Gastroesophageal reflux disease: Continue Protonix. 5. Depression, bipolar: Continue sertraline. 6. Morbid obesity: Needs counseling. 7. Deep venous thrombosis prophylaxis, sequential compression devices for now. 8. Disposition: Observe in medical floor. Level 1 full code. MTDD
[2019-12-28] MEDS: HYDROCODONE/ACETAMOPHEN 5/325MG TAB PO PRN ×5 (01:24→21:40)
[2019-12-28] MEDS: SODIUM CHLORIDE 0.9% 1000ML 1,000 ML IV SCH ×3 (02:19→18:21)
[2019-12-28] MEDS: MoRPHine SULFATE 4 MG/ML 1 ML CARP\\VIAL IV PRN ×4 (03:50→23:30)
[2019-12-28 05:37] LABS: Basophils # (auto) 0.02 K/uL (0-0.2); Basophils % (auto) 0.3 %; Eosinophils # (auto) 0.22 K/uL (0-0.5); Eosinophils % (auto) 2.8 %; Hematocrit (blood only) 37.3 % (37-47); Immature Granulocytes # (auto) 0.01 K/uL (0.00-0.02); Immature Granulocytes % (auto) 0.1 %; Lymphocytes % (auto) 19.4 %; Mean Corpuscular Hemoglobin 28.4 pg (25-34); Mean Corpuscular Hgb Conc 32.2 g/dL (32-36); Mean Corpuscular Volume 88.2 fL (80-100); Mean Platelet Volume 10.6 fL (7.4-10.4); Monocytes # (auto) 0.46 K/uL (0.11-0.59); Neutrophils # (auto) 5.52 K/uL (1.4-6.5); Neutrophils % (auto) 71.4 %; Platelet Count 345 K/uL (130-400); RDW Coefficient of Variation 14.4 % (11.5-14.5); RDW Standard Deviation 46.5 fL (36.4-46.3); Red Blood Count 4.23 M/uL (4.2-5.4); White Blood Count 7.73 K/uL (4.8-10.8)
[2019-12-28] MEDS: CLINDAMYCIN 600 MG in DEXTROSE 5% 50 ML IV SCH ×3 (05:39→22:21)
[2019-12-28 05:55] LABS: Creatinine Clr Calc Pharmacy 133.3 ml/min; Est GFR (African American) 116.9; Est GFR (Non-African American) 100.9; Magnesium 1.8 mg/dl (1.8-2.4); Potassium 3.6 mmol/L (3.5-5.1)
[2019-12-28] MEDS: ONDANSETRON INJ 2 MG/ML 2 ML VIAL IV PRN ×2 (08:54→15:36)
[2019-12-28] MEDS: PANTOprazole 40 MG TAB PO SCH (08:59)
[2019-12-28] MEDS: SERTRALINE HCL 50 MG TABLET PO SCH (08:59)
[2019-12-28] MEDS: FOLIC ACID 1 MG TAB PO SCH (08:59)
[2019-12-28] MEDS: CETIRIZINE HCL 10 MG TABLET PO SCH (09:00)
--- NOTE | 2019-12-28 12:49 | Hospitalist Progress Note ---
Date of Service December 28, 2019 Assessment & Plan (1) Facial cellulitis: Admitted with left facial cellulitis secondary to left maxillary dental apical root abscess Failure of outpatient treatment CT of the face showed left maxillary apical dental abscess with surrounding cellulitis Has been on intravenous clindamycin and Rocephin Not any better as of today (2) Dental abscess: Has left maxillary dental apical abscess Will need appointment with dentist following discharge from the hospital Not yet ready to be discharged (3) Acute facial pain: Secondary to apical root abscess We will give nonnarcotic analgesics (4) History of asthma: Remains stable (5) Fibromyalgia: No acute symptom (6) Rheumatoid arthritis: Remains stable DVT prophylax Subcutaneous CODE STATUS Full Admission and Anticipated Discharge Date Admission Date: December 27, 2019 Subjective The patient was seen and examined in medical floor She complains to have persisting swelling and pain involving the left face Denies any fever and/or chills Review of Systems Review of Systems: All systems reviewed and are unremarkable except as noted below Ear, Nose, Mouth, Throat: + ear pain, + facial pain, + sinus pain/pressure, + dental pain and + dental abscess Physical Exam Physical Exam: Lying in bed with some difficulty due to left facial pain and swelling Constitutional: well developed, well nourished, + acute distress, + ill appearing and + obese Eyes: + eyelid abnormality (Left lower eyelid is swollen) ENMT: Left facial swelling with increased local tenderness and temperature Respiratory: normal respiratory effort; no respiratory distress Auscultati on: lungs clear to auscultation bilaterally Cardiovascular: Rate/Rhythm: regular rate and regular rhythm Heart Sounds: no murmur Gastrointestinal (Abdomen): Inspection/Auscultation: abdomen normal to inspection and normal bowel sounds Percussion/Palpation: abdomen soft; abdomen nontender Musculoskeletal: No acute arthritis involving any joints Neurologic: moves all extremities; no focal motor deficits Lymphatic: + cervical lymphadenopathy Results & Data Results & Data ([facility]) Vital Signs (Past 12 Hours) Vital Signs Temp Pulse Resp BP BP Pulse Ox 12/28/19 07:24 36.9 C 78 18 97/65 L 96 12/28/19 00:46 37.0 C 77 12 138/82 97 Laboratory Results Short CBC 12/27/19 12/28/19 Range/Units 19:50 05:21 WBC 8.62 7.73 (4.8-10.8) K/uL Hgb 12.9 12.0 (12.0-16.0) g/dL Hct 40.2 37.3 (37-47) % Plt Count 351 345 (130-400) K/uL [facility] 12/27/19 12/28/19 19:50 05:21 Sodium 140 142 Potassium 3.5 3.6 Chloride 110 H 111 H Carbon Dioxide 26 24 BUN 8 7 Creatinine 0.78 0.73 Glucose 94 90 Calcium 8.7 8.0 L Medications Administered Current Inpatient Medications Acetaminophen (Tylenol) 650 mg PO Q4H PRN PRN Reason: pain/fever Stop: 01/27/20 00:48 Hydrocodone Bitart/Acetaminophen ([place] 5/325) 1 tab PO Q6H PRN PRN Reason: Pain Stop: 01/11/20 00:56 Last Admin: 12/28/19 07:46 Dose: 1 tab Documented by: Cetirizine HCl (Zyrtec) 10 [facility] Stop: 01/27/20 08:59 Last Admin: 12/28/19 09:00 Dose: 10 mg Documented by: Ergocalciferol (Vitamin D2) 50,000 units PO Mo@0900 [facility] Stop: 01/31/20 08:59 Fluticasone Propionate (Flonase) 2 sprays NA DAILY PRN PRN Reason: Allergy Symptoms Stop: 01/27/20 00:48 Folic Acid (Folvite) 6 mg PO QAM [facility] Stop: 01/27/20 08:59 Last Admin: 12/28/19 08:59 Dose: 6 mg Documented by: Ceftriaxone Sodium 2,000 mg/ (Dextrose) 70 mls @ 100 mls/hr IV Q24H [facility]; Protocol Stop: 01/02/20 21:41 Clindamycin Phosphate 600 mg/ (Dextrose) 54 mls @ 100 mls/hr IV Q8H [facility] Stop: 01/04/20 05:59 Last Infusion: 12/28/19 06:12 Dose: Infused Documented by: Sodium Chloride (Nss 1000ml) 1,000 mls @ 125 mls/hr IV .Q8H [facility] Stop: 01/27/20 00:48 Last Admin: 12/28/19 10:47 Dose: 125 mls/hr Documented by: Morphine Sulfate (Morphine Sulfate) 3 mg IV Q3H PRN PRN Reason: Pain Stop: 01/11/20 00:48 Last Admin: 12/28/19 08:54 Dose: 3 mg Documented by: Ondansetron HCl (Zofran) 4 mg IV Q6H PRN PRN Reason: Nausea Stop: 01/27/20 00:48 Last Admin: 12/28/19 08:54 Dose: 4 mg Documented by: Pantoprazole Sodium (Protonix) 40 mg PO DAILY [facility] Stop: 01/27/20 08:59 Last Admin: 12/28/19 08:59 Dose: 40 mg Documented by: Polyethylene Glycol (Miralax Powder Packet) 17 gm PO DAILY PRN PRN Reason: Constipation Stop: 01/27/20 00:48 Sertraline HCl (Zoloft) 75 mg PO [facility] Stop: 01/27/20 08:59 Last Admin: 12/28/19 08:59 Dose: 75 mg Documented by:
[2019-12-28] MEDS: ACETAMINOPHEN 325 MG TAB PO PRN (17:23)
[2019-12-28] MEDS: HEPARIN SOD 5,000 UNIT/0.5 ML VIAL SQ SCH (21:21)
[2019-12-28] MEDS: cefTRIAXone SODIUM 2,000 MG in DEXTROSE 5% 50 ML IV SCH (21:34)
[2019-12-29] MEDS: SODIUM CHLORIDE 0.9% 1000ML 1,000 ML IV SCH ×3 (02:19→20:39)
[2019-12-29] MEDS: ACETAMINOPHEN 325 MG TAB PO PRN (02:20)
[2019-12-29] MEDS: MoRPHine SULFATE 4 MG/ML 1 ML CARP\\VIAL IV PRN ×4 (04:05→21:47)
[2019-12-29] MEDS: HYDROCODONE/ACETAMOPHEN 5/325MG TAB PO PRN ×4 (05:51→23:52)
[2019-12-29] MEDS: CLINDAMYCIN 600 MG in DEXTROSE 5% 50 ML IV SCH ×3 (05:52→21:48)
[2019-12-29] MEDS: ONDANSETRON INJ 2 MG/ML 2 ML VIAL IV PRN ×2 (05:53→13:43)
[2019-12-29] MEDS: PANTOprazole 40 MG TAB PO SCH (09:02)
[2019-12-29] MEDS: FOLIC ACID 1 MG TAB PO SCH (09:02)
[2019-12-29] MEDS: SERTRALINE HCL 50 MG TABLET PO SCH (09:02)
[2019-12-29] MEDS: CETIRIZINE HCL 10 MG TABLET PO SCH (09:03)
[2019-12-29] MEDS: HEPARIN SOD 5,000 UNIT/0.5 ML VIAL SQ SCH ×2 (09:06→20:46)
--- NOTE | 2019-12-29 14:39 | Hospitalist Progress Note ---
Date of Service December 29, 2019 Assessment & Plan (1) Facial cellulitis: Admitted with left facial cellulitis secondary to left maxillary dental apical root abscess Failure of outpatient treatment CT of the face showed left maxillary apical dental abscess with surrounding cellulitis Has been on intravenous clindamycin and Rocephin Looks a lot better today Still swelling of the left lower eyelid and tenderness involving the maxillary sinus areas Still having problem with swallowing Having diarrhea likely secondary to antibiotic use Will get C. difficile test in the stool (2) Dental abscess: Has left maxillary dental apical abscess Will need appointment with dentist following discharge from the hospital Not yet ready to be discharged Clinically better and likely be discharged tomorrow (3) Acute facial pain: Secondary to apical root abscess We will give nonnarcotic analgesics We need to stay tonight (4) History of asthma: Remains stable (5) Fibromyalgia: No acute symptom (6) Rheumatoid arthritis: Remains stable DVT prophylax Subcutaneous CODE STATUS Full Admission and Anticipated Discharge Date Admission Date: December 28, 2019 Subjective The patient was seen and examined in medical floor She complains to have persisting swelling and pain involving the left face Denies any fever and/or chills 12/29/2019 The patient was seen and examined in medical floor She complains to have ongoing pain in the left face but the swelling has decreased No fever and/or chills Has had diarrhea this morning Review of Systems Review of Systems: All systems reviewed and are unremarkable except as noted below Ear, Nose, Mouth, Throat: + ear pain, + facial pain, + sinus pain/pressure, + dental pain and + dental abscess Gastrointestinal: + diarrhea/loose stools Physical Exam Physical Exam: Lying in bed with some difficulty due to left facial pain and swelling Constitutional: well developed, well nourished, + acute distress, + ill appearing and + obese Eyes: + eyelid abnormality (Left lower eyelid is swollen-a little better as of today) ENMT: Swelling of the left side of face seems to be improving. Local tenderness and warmth remain. Respiratory: normal respiratory effort; no respiratory distress Auscultation: lungs clear to auscultation bilaterally Cardiovascular: Rate/Rhythm: regular rate and regular rhythm Heart Sounds: no murmur Gastrointestinal (Abdomen): Inspection/Auscultation: abdomen normal to inspection and normal bowel sounds Percussion/Palpation: abdomen soft; abdomen nontender Neurologic: moves all extremities; no focal motor deficits Lymphatic: + cervical lymphadenopathy Results & Data Results & Data ([facility]) Vital Signs (Past 12 Hours) Vital Signs Temp Pulse Resp BP Pulse Ox 12/29/19 07:41 36.7 C 71 16 106/66 94 Medications Administered Current Inpatient Medications Acetaminophen (Tylenol) 650 mg PO Q4H PRN PRN Reason: pain/fever Stop: 01/27/20 00:48 Last Admin: 12/29/19 02:20 Dose: 650 mg Documented by: Hydrocodone Bitart/Acetaminophen ([place] 5/325) 1 tab PO Q6H PRN PRN Reason: Pain Stop: 01/11/20 00:56 Last Admin: 12/29/19 11:58 Dose: 1 tab Documented by: C[facility]irizine [facility] (Z[facility]tec) [facility] [place] [place]: 01/27/20 08:59 Last Admin: 12/29/19 09:03 Dose: 10 mg Documented by: Diphenhydramine HCl (Benadryl Capsule) 25 mg PO Q6H PRN PRN Reason: Allergic Reaction Stop: 01/27/20 19:34 Last Admin: 12/29/19 11:20 Dose: 25 mg Documented by: Ergocalciferol (Vitamin D2) 50,000 units PO Mo@0900 [facility] Stop: 01/31/20 08:59 Fluticasone Propionate (Flonase) 2 sprays NA DAILY PRN PRN Reason: Allergy Symptoms Stop: 01/27/20 00:48 Folic Acid (Folvite) 6 mg PO QAM [facility] Stop: 01/27/20 08:59 Last Admin: 12/29/19 09:02 Dose: 6 mg Documented by: Heparin Sodium (Porcine) (Heparin Sodium (Porcine)) 5,000 units SQ Q12 [facility] Stop: 01/27/20 20:59 Last Admin: 12/29/19 09:06 Dose: 5,000 units Documented by: Ceftriaxone Sodium 2,000 mg/ (Dextrose) 70 mls @ 100 mls/hr IV Q24H [facility]; Renuka col Stop: 01/02/20 21:41 Last Infusion: 12/28/19 22:18 Dose: Infused Documented by: Clindamycin Phosphate 600 mg/ (Dextrose) 54 mls @ 100 mls/hr IV Q8H [facility] Stop: 01/04/20 05:59 Last Admin: 12/29/19 13:47 Dose: 100 mls/hr Documented by: Sodium Chloride (Nss 1000ml) 1,000 mls @ 125 mls/hr IV .Q8H [facility] Stop: 01/27/20 00:48 Last Infusion: 12/29/19 13:49 Dose: 0 mls/hr Documented by: Morphine Sulfate (Morphine Sulfate) 3 mg IV Q3H PRN PRN Reason: Pain Stop: 01/11/20 00:48 Last Admin: 12/29/19 08:57 Dose: 3 mg Documented by: Ondansetron HCl (Zofran) 4 mg IV Q6H PRN PRN Reason: Nausea Stop: 01/27/20 00:48 Last Admin: 12/29/19 13:43 Dose: 4 mg Documented by: Pantoprazole Sodium (Protonix) 40 mg PO DAILY [facility] Stop: 01/27/20 08:59 Last Admin: 12/29/19 09:02 Dose: 40 mg Documented by: Polyethylene Glycol (Miralax Powder Packet) 17 gm PO DAILY PRN PRN Reason: Constipation Stop: 01/27/20 00:48 Sertraline HCl (Zoloft) 75 mg PO QAM [facility] Stop: 01/27/20 08:59 Last Admin: 12/29/19 09:02 Dose: 75 mg Documented by:
[2019-12-29] MEDS: cefTRIAXone SODIUM 2,000 MG in DEXTROSE 5% 50 ML IV SCH (20:38)
[2019-12-29] MEDS ORDERED: FLUCONAZOLE 100 MG TAB PO STA (20:55)
[2019-12-30] MEDS: MoRPHine SULFATE 4 MG/ML 1 ML CARP\\VIAL IV PRN ×2 (01:26→07:52)
[2019-12-30] MEDS: HYDROCODONE/ACETAMOPHEN 5/325MG TAB PO PRN ×2 (05:44→11:48)
[2019-12-30] MEDS: CLINDAMYCIN 600 MG in DEXTROSE 5% 50 ML IV SCH (05:45)
[2019-12-30] MEDS: SODIUM CHLORIDE 0.9% 1000ML 1,000 ML IV SCH (05:45)
[2019-12-30] MEDS: ONDANSETRON INJ 2 MG/ML 2 ML VIAL IV PRN (05:46)
[2019-12-30] MEDS: FOLIC ACID 1 MG TAB PO SCH (08:33)
[2019-12-30] MEDS: PANTOprazole 40 MG TAB PO SCH (08:34)
[2019-12-30] MEDS: CETIRIZINE HCL 10 MG TABLET PO SCH (08:34)
[2019-12-30] MEDS: SERTRALINE HCL 50 MG TABLET PO SCH (08:35)
[2019-12-30] MEDS: HEPARIN SOD 5,000 UNIT/0.5 ML VIAL SQ SCH (08:36)
[2019-12-30] MEDS: ACETAMINOPHEN 325 MG TAB PO PRN (10:06)
[2019-12-30] MEDS ORDERED: DICLOFENAC SOD 1% GEL 100 GM TUBE EXT SCH (11:45)
[2019-12-30] MEDS ORDERED: CLINDAMYCIN HCL 150 MG CAP PO SCH (12:00)
--- NOTE | 2019-12-30 13:00 | Hospitalist Progress Note ---
Date of Service December 30, 2019 Assessment & Plan (1) Facial cellulitis: Admitted with left facial cellulitis secondary to left maxillary dental apical root abscess Failure of outpatient treatment CT of the face showed left maxillary apical dental abscess with surrounding cellulitis Has been on intravenous clindamycin and Rocephin Looks a lot better today Still swelling of the left lower eyelid and tenderness involving the maxillary sinus areas Still having problem with swallowing Having diarrhea likely secondary to antibiotic use Will get C. difficile test in the stool-no more diarrhea Feeling a lot better without any symptom Will be discharged home this afternoon (2) Dental abscess: Has left maxillary dental apical abscess Will need appointment with dentist following discharge from the hospital Not yet ready to be discharged Clinically better and likely be discharged tomorrow We will continue with oral clindamycin for 7 more days Advised to have an appointment with dentist as soon as possible (3) Acute facial pain: Secondary to apical root abscess We will give nonnarcotic analgesics Still has significant pain (4) History of asthma: Remains stable (5) Fibromyalgia: No acute symptom (6) Rheumatoid arthritis: Remains stable DVT prophylax Subcutaneous CODE STATUS Full Admission and Anticipated Discharge Date Admission Date: December 28, 2019 Subjective The patient was seen and examined in medical floor She complains to have persisting swelling and pain involving the left face Denies any fever and/or chills 12/29/2019 The patient was seen and examined in medical floor She complains to have ongoing pain in the left face but the swelling has decreased No fever and/or chills Has had diarrhea this morning 12/30/2019 Patient was seen and examined in medical floor She denies any complaints and her left facial pain is almost gone No fever and no chills Has been tolerating regular diet Review of Systems Review of Systems: All systems reviewed and are unremarkable except as noted below Ear, Nose, Mouth, Throat: + dental pain and + dental abscess; no ear pain, no facial pain and no sinus pain/pressure Gastrointestinal: + diarrhea/loose stools Physical Exam Physical Exam: Lying in bed with some difficulty due to left facial pain and swelling Constitutional: well developed, well nourished, + acute distress, + ill appearing and + obese Eyes: no eyelid abnormality (Left lower eyelid is swollen-a little better as of today) Respiratory: normal respiratory effort; no respiratory distress Auscultation: lungs clear to auscultation bilaterally Cardiovascular: Rate/Rhythm: regular rate and regular rhythm Heart Sounds: no murmur Gastrointestinal (Abdomen): Inspection/Auscultation: abdomen normal to inspection and normal bowel sounds Percussion/Palpation: abdomen soft; abdomen nontender Neurologic: moves all extremities; no focal motor deficits Lymphatic: no cervical lymphadenopathy Results & Data Results & [facility] ([facility]) Vital Signs (Past 12 Hours) Vital Signs Temp Pulse Resp BP Pulse Ox 12/30/19 08:00 36.8 C 68 18 101/67 98 Medications Administered Current Inpatient Medications Acetaminophen (Tylenol) 650 mg PO Q4H PRN PRN Reason: pain/fever Stop: 01/27/20 00:48 Last Admin: 12/30/19 10:06 Dose: 650 mg Documented by: Hydrocodone Bitart/Acetaminophen ([place] 5/325) 1 tab PO Q6H PRN PRN Reason: Pain Stop: 01/11/20 00:56 Last Admin: 12/30/19 11:48 Dose: 1 tab Documented by: Cetirizine HCl (Zyrtec) 10 mg PO QAM [facility] Stop: 01/27/20 08:59 Last Admin: 12/30/19 08:34 Dose: 10 mg Documented by: Clindamycin HCl (Cleocin) 300 mg PO Q6 [facility] Stop: 01/06/20 11:59 Last Admin: 12/30/19 12:33 Dose: 300 mg Documented by: Diclofenac Sodium (Voltaren 1% Top) 0.5 gm EXT BID [facility] Stop: 01/29/20 11:44 Last Admin: 12/30/19 12:34 Dose: 0.5 gm Documented by: Diphenhydramine HCl (Benadryl Capsule) 25 mg PO Q6H PRN PRN Reason: Allergic Reaction Stop: 01/27/20 19:34 Last Admin: 12/29/19 11:20 Dose: 25 mg Documented by: Ergocalciferol (Vitamin D2) 50,000 units PO Mo@0900 [facility] Stop: 01/31/20 08:59 Fluticasone Propionate (Flonase) 2 sprays NA DAILY PRN PRN Reason: Allergy Symptoms Stop: 01/27/20 00:48 Folic Acid (Folvite) 6 mg PO QAM [facility] Stop: 01/27/20 08:59 Last Admin: 12/30/19 08:33 Dose: 6 mg Documented by: Heparin Sodium (Porcine) (Heparin Sodium (Porcine)) 5,000 units SQ Q12 [facility] Stop: 01/27/20 20:59 Last Admin: 12/30/19 08:36 Dose: 5,000 units Documented by: Morphine Sulfate (Morphine Sulfate) 3 mg IV Q3H PRN PRN Reason: Pain Stop: 01/11/20 00:48 Last Admin: 12/30/19 07:52 Dose: 3 mg Documented by: Ondansetron HCl (Zofran) 4 mg IV Q6H PRN PRN Reason: Nausea Stop: 01/27/20 00:48 Last Admin: 12/30/19 05:46 Dose: 4 mg Documented by: Pantoprazole Sodium (Protonix) 40 mg PO DAILY [facility] Stop: 01/27/20 08:59 Last Admin: 12/30/19 08:34 Dose: 40 mg Documented by: Polyethylene Glycol (Miralax Powder Packet) 17 gm PO DAILY PRN PRN Reason: Constipation Stop: 01/27/20 00:48 Sertraline HCl (Zoloft) 75 mg PO QAM [facility] Stop: 01/27/20 08:59 Last Admin: 12/30/19 08:35 Dose: 75 mg Documented by:
--- NOTE | 2019-12-30 15:32 | Discharge Summary ---
Date of Service December 30, 2019 Admission HPI Per Admitting Provider DICTATED BY: Josh Montaño MD DATE OF ADMISSION: 12/27/2019 CHIEF COMPLAINT: Facial pain. HISTORY OF PRESENT ILLNESS: This is a 44-year-old female with past medical history significant for obesity, vitamin D deficiency, idiopathic scoliosis, fibromyalgia, carpal tunnel syndrome, migraine without aura, rheumatoid arthritis, major depression, tobacco use disorder, bipolar disorder, comes with left facial pain. The patient was in the ER yesterday complained of dental pain. She seem to lost her left maxillary filling several months ago and could not get a dental appointment because of the COVID. She was discharged from the ER with clindamycin. Then she saw the PCP and doxy was added, but it is not getting better. There is swelling in the left side of the face, cannot open her mouth, not able to eat. Denies any fever, chills. No blurred visions. Has left ear pain. No runny nose, no sore throat, no cough, no headache, no dizziness, no shortness of breath, no chest pain, no nausea, no abdominal pain. Normal bowel and bladder movements. No rash. Currently resting comfortably and hemodynamically stable. CT scan of the face in the ER shows left periorbital edema consistent with preseptal cellulitis, left maxillary dental apical abscess. Admission Exam Per Admitting Provider GENERAL: The patient is morbidly obese, not in acute distress. VITAL SIGNS: Temperature 36.8, pulse 84, respiratory rate 18, blood pressure 140/81, oxygen 99% room air. HEENT: No pallor, no icterus. Pupils equal, round, and reactive to light. Painful opening of the mouth. Swelling seen on the left orbit and left mandibular region with mild erythematous changes. NECK: No JVD, no neck masses, no carotid bruit. CARDIOVASCULAR: S1, S2, regular rate and rhythm, no murmur, no gallop. RESPIRATORY SYSTEM: Normal AP diameter. No accessory muscle use. No wheezing, no crackles. ABDOMEN: Soft, bowel sounds present, nontender. No distention. CENTRAL NERVOUS SYSTEM: Cranial nerves II-XII grossly intact. Nonfocal. EXTREMITIES: No edema, no erythema. Principal Diagnosis Left facial cellulitis, left maxillary apical dental abscess, fibromyalgia, controlled asthma Discharge Exam Constitutional well developed, well nourished, + acute distress, + ill appearing and + obese Eyes no eyelid abnormality (Left lower eyelid is swollen-a little better as of today) Respiratory normal respiratory effort; no respiratory distress Auscultation: lungs clear to auscultation bilaterally Cardiovascular Rate/Rhythm: regular rate and regular rhythm Heart Sounds: no murmur Gastrointestinal (Abdomen) Inspection/Auscultation: abdomen normal to inspection and normal bowel sounds Percussion/Palpation: abdomen soft; abdomen nontender Neurologic moves all extremities; no focal motor deficits Lymphatic no cervical lymphadenopathy Discharge Data Allergies Allergy/AdvReac Type Severity Reaction Status Date / Time Bactrim Allergy Severe ANAPHYLAXIS Verified 04/02/18 17:47 gabapentin Allergy Severe SHORTNESS Verified 10/03/19 19:12 OF BREATH sulfamethoxazole Allergy Severe ANAPHYLAXIS Verified 10/03/19 19:12 tramadol Allergy Severe FEELS LIKE Verified 10/03/19 19:12 BUGS ON BODY trimethoprim Allergy Severe ANAPHYLAXIS Verified 10/03/19 19:12 promethazine Allergy Intermediate HIVES Verified 10/03/19 19:12 ketorolac Allergy Mild rash Verified 10/03/19 19:12 penicillinase Allergy Unknown unknown Verified 10/03/19 19:12 propoxyphene Allergy Unknown Unknown Verified 10/03/19 19:12 walnut AdvReac Severe ASTHMA Verified 10/03/19 19:12 EXACERBATION basil AdvReac Intermediate headaches Verified 10/03/19 19:12 codeine AdvReac Intermediate GI SYMPTOMS Verified 10/03/19 19:12 metronidazole AdvReac Intermediate THRUSH Verified 10/03/19 19:12 prednisone AdvReac Intermediate vomiting Verified 10/03/19 19:12 venlafaxine AdvReac Intermediate Increase Verified 10/03/19 19:12 agitation. sumatriptan AdvReac Mild RASH Verified 10/03/19 19:12 Consultations 12/27/19 22:42 ED Decision to Admit Stat 12/28/19 00:49 Consult Case Management - Discharge Planning Routine Ordered Studies 12/27/19 19:19 CT facial bones w con Stat Hospital Course (1) Facial cellulitis: Admitted with left facial cellulitis secondary to left maxillary dental apical root abscess Failure of outpatient treatment CT of the face showed left maxillary apical dental abscess with surrounding cellulitis Has been on intravenous clindamycin and Rocephin Looks a lot better today Still swelling of the left lower eyelid and tenderness involving the maxillary sinus areas Still having problem with swallowing Having diarrhea likely secondary to antibiotic use Will get C. difficile test in the stool-no more diarrhea Feeling a lot better without any symptom Will be discharged home this afternoon (2) Dental abscess: Has left maxillary dental apical abscess Will need appointment with dentist following discharge from the hospital Not yet ready to be discharged Clinically better and likely be discharged tomorrow We will continue with oral clindamycin for 7 more days Advised to have an appointment with dentist as soon as possible (3) Acute facial pain: Secondary to apical root abscess We will give nonnarcotic analgesics Still has significant pain (4) History of asthma: Remains stable (5) Fibromyalgia: No acute symptom (6) Rheumatoid arthritis: Remains stable DVT prophylax Subcutaneous CODE STATUS Full Total Time Total Time Spent Total Time Spent (In Minutes): 35 minutes Total Time Includes: Examination of the Patient, Discharge Planning, Medication Reconciliation and Communication With Other Providers Discharge Plan Discharge Items Patient Disposition: Home - Self-Care Reason For Visit: FACIAL PAIN Discharge Diagnosis: Left facial cellulitis, left maxillary apical dental abscess, fibromyalgia, co ntrolled asthma Condition on Discharge: Good Activity: Resume your previous activity Non-emergency contact: Primary Care Provider Call non-emergency contact if: you have any medication questions Follow-up/Referrals: Swetha Gil DO [Primary Care Provider] - 01/04/20 12:20 pm (PLEASE NOTE: This appointment is with Dr. Gil at [facility] . Please make an appointment with your dentist as soon as possible.) Diet: Regular Addtl Attending Provider Instructions: Please finish the course of antibiotic Pending Studies at Discharge: No Stand-Alone Forms: My [facility], Smoking Cessation Medications and DC Order Prescriptions: New clindamycin HCl 150 mg Capsule 300 mg PO Q6 7 Days Qty: 56 RF: 0 diclofenac sodium [Voltaren] 1 % Gel 0.5 g EXT BID 10 Days Qty: 1 RF: 0 Lactinex 1 million cell tablet,chewable 1 tab PO TID Qty: 30 RF: 0 Continued fluticasone propionate [Flonase Allergy Relief] 50 mcg/actuation [place],Suspension 2 spray INTRANASAL DAILY PRN (Reason: Allergy Symptoms) RF: 0 hydrocodone-acetaminophen [[place]] 5-325 mg tablet 1 tab PO Q6H PRN (Reason: Pain) 2 Days Qty: 6 RF: 0 cetirizine 10 mg tablet 10 mg PO QAM RF: 0 ergocalciferol (vitamin D2) [Vitamin D2] 50,000 unit Capsule 50,000 unit PO WK RF: 0 sertraline 50 mg tablet 75 mg PO QAM RF: 0 folic acid 1 mg Tablet 6 mg PO QAM RF: 0 methotrexate sodium 25 mg/mL solution See Rx Instructions .ROUTE .COMPLEX RF: 0 pantoprazole [Protonix] 20 mg Tablet,Delayed Release (Dr/Ec) 20 mg PO DAILY RF: 0 Discontinued doxycycline hyclate 100 mg Tablet 100 mg PO BID RF: 0 Discharge Orders: Discharge Order (Routine); Ordered 12/30/19 Ordered By: Anabelle Trotter/Other Patient Handouts: Dental Abscess Admission Data Admit Date/Time: 12/28/19 14:30 Attending Provider: Anabelle Mcelroy Admit Provider: Josh Montaño Primary Care Provider: Swetha Gil Other Providers: Josh Montaño Other Interventions: Discharge Summary Assessment (RN) Last Done: 12/30/19 12:32 DC Date/Time DO NOT enter until pt leaves facility: 12/30/19 13:52
[2020-01-01] MEDS ORDERED: ERGOCALCIFEROL 50,000 UNITS CAP PO SCH (09:00)
== END 2019-12-30 13:52 | disposition home or self-care (01) | DRG 158 ==
LOC: ED 18:27 → 3E 18:27 → SUATTDRO 23:47 → 3E 12-28 00:30

== ENCOUNTER 2022-10-07 14:35 | Inpatient (IN) ==
[2022-10-07] MEDS ORDERED: SODIUM CHLORIDE 0.9% 1000ML 1,000 ML IV STA (15:04)
[2022-10-07] MEDS ORDERED: CLINDAMYCIN/D5W 900 MG/50 ML BAG IV ONE (15:04)
[2022-10-07] MEDS ORDERED: HYDROmorphone INJ 1 MG/ML SYRINGE IV STA (15:04)
--- NOTE | 2022-10-07 15:19 | Emergency Department Note ---
ED Provider Note History of Present Illness Chief Complaint: Skin Problem Stated Complaint: SWOLLEN FACE, CELLULITIS Time Seen by Provider: 10/07/22 14:52 46-year-old female who presents to the emergency department for worsening left facial swelling and pain. The patient reports that she was in the emergency department yesterday for dental abscess. She was administered IV clindamycin, and provided a prescription for the same. The patient reports that she went home and has had worsening symptoms. The patient now reports that the pain feels like it is going down into her neck as well. She rates her discomfort a 9 out of 10. Home Medications Medication Instructions Recorded Confirmed Type ergocalciferol (vitamin D2) 1,250 50,000 unit PO WK 08/02/18 01/04/22 History mcg (50,000 unit) capsule (Vitamin D2) pantoprazole 20 mg tablet,delayed 20 mg PO QAM 12/25/19 01/04/22 History release (Protonix) sertraline 50 mg tablet (Zoloft) 75 mg PO QAM 03/01/20 01/04/22 History albuterol sulfate 90 mcg/actuation 2 puff inhalation Q4H PRN Wheezing 09/24/20 01/04/22 History aerosol inhaler (Ventolin HFA) cetirizine 10 mg tablet 10 mg PO QAM 09/24/20 01/04/22 History ibuprofen 800 mg tablet 800 mg PO TID PRN Pain 03/18/21 01/04/22 History thyroid (pork) 15 mg tablet (LARD MAKER 7.5 mg PO QAM 03/18/21 01/04/22 History Thyroid) albuterol sulfate 0.63 mg/3 mL 0.63 mg inhalation Q4H PRN SHORT 05/19/21 01/04/22 History solution for nebulization OF BREATH cimetidine 400 mg tablet 400 mg PO BID 05/19/21 01/04/22 History furosemide 40 mg tablet (Lasix) 40 mg PO QAM 05/19/21 01/04/22 History leucovorin calcium 5 mg tablet 5 mg PO QAM 05/19/21 01/04/22 History methotrexate sodium 25 mg/mL 25 mg subcut WK 05/19/21 01/04/22 History injection solution folic acid 1 mg tablet 2 mg PO DAILY 11/11/21 01/04/22 History ondansetron 4 mg disintegrating 8 mg PO Q6H PRN nausea and vomiting 11/11/21 01/04/22 History tablet oxycodone 5 mg tablet 5 mg PO Q6H PRN pain #10 tabs 11/11/21 01/04/22 Rx etanercept 50 mg/mL (1 mL) 50 mg subcut WK 01/04/22 01/04/22 History subcutaneous syringe (Enbrel) clindamycin HCl 300 mg capsule 300 mg PO TID 10 days #30 caps 10/06/22 Rx oxycodone 5 mg tablet 5 mg PO Q6 PRN pain #12 tabs 10/06/22 Rx Allergies Allergy/AdvReac Type Severity Reaction Status Date / Time gabapentin Allergy Severe SHORTNESS Verified 11/11/21 17:57 OF BREATH sulfamethoxazole Allergy Severe ANAPHYLAXIS Verified 11/11/21 17:57 tramadol Allergy Severe FEELS LIKE Verified 11/11/21 17:57 BUGS ON BODY trimethoprim Allergy Severe ANAPHYLAXIS Verified 11/11/21 17:57 promethazine Allergy Intermediate HIVES Verified 11/11/21 17:57 ketorolac Allergy Mild rash Verified 11/11/21 17:57 penicillinase Allergy Unknown UNSURE OF Verified 11/11/21 17:57 REACTION propoxyphene Allergy Unknown UNSURE OF Verified 11/11/21 17:57 REACTION basil AdvReac Intermediate headaches Verified 11/11/21 17:57 codeine AdvReac Intermediate GI SYMPTOMS Verified 11/11/21 17:57 metronidazole AdvReac Intermediate THRUSH Verified 11/11/21 17:57 prednisone AdvReac Intermediate vomiting Verified 11/11/21 17:57 venlafaxine AdvReac Intermediate Increase Verified 11/11/21 17:57 agitation. sumatriptan AdvReac Mild RASH Verified 11/11/21 17:57 Past Med/Surg History Medical History ADD (attention deficit disorder) Anxiety and depression Asthma LAST USED INHALER OCTOBER 2020 Encounter for pre-operative examination Fibromyalgia Fluid retention in legs GERD (gastroesophageal reflux disease) History of COVID-01 NOVEMBER 2020 (NO CURRENT PROBLEMS) Hx of phlebitis RT/LEFT ARM S/P IV INSERTION Hypothyroidism Migraine Morbid obesity with BMI of 50.0-59.9, adult Osteoarthritis Post traumatic stress disorder Rheumatoid arthritis Temporomandibular joint disorder NO LOCKING Surgical History H/O exploratory laparotomy History of ankle surgery LEFT. 03/2020: General LMA with Left popliteal nerve block. History of bilateral tubal ligation History of carpal tunnel release RT X 2, LEFT History of section X 1 History of esophagogastroduodenoscopy (EGD) Hx of cholecystectomy [place] teeth removed Family History Grandmother (Maternal) Family history of diabetes mellitus Other No family history of adverse response to anesthesia No significant family history Social History Smoking Status: Former smoker Tobacco Type: Cigarettes Cigarettes Per Day: 10 CIG DAILY; Second Hand Exposure: Yes; Hx Alcohol Use: Yes Alcohol type: wine Hx Substance Use: Yes Last Used Substance Other:: LAST USED TODAY (ADVISED) Preferred Language: Hungarian Communication Ability: Effective Loan Underwriter Required: No Beliefs That Will Affect Care: None marital status: Current Living Situation: Family Current Living Situation Comment: Lives with and children current occupational status: employed Feels Safe at Home: Yes Assistive Devices: Cane, Glasses, Nebulizer and Walker Physical Exam Vital Signs Vital Signs - 24 hr 10/07/22 14:35 Temperature 36.8 C Temperature Source Temporal Artery Scan Pulse Rate 83 Respiratory Rate 20 Respiratory Effort / Characteristics Non-Labored Spontaneous Respiratory Depth Normal Blood Pressure 130/82 Blood Pressure Mean 98 Pulse Oximetry 96 Oxygen Delivery Method Room Air Sepsis Recent Fever Within 48 Hours No Sepsis New/Unexplained Change in Mental Status No Sepsis Action Taken by Nursing No Action Required CONSTITUTIONAL: Healthy and well nourished. Alert and oriented X 3. Patient appears in moderate discomfort. HEENT: Examination shows left facial edema without overlying erythema. Pupils equal, round and reactive. Examination oropharynx does not show any obvious gingival erythema, fluctuance, pointing or drainage. NECK: Full active range of motion without discomfort. Patient has no induration of the left neck region. Trachea is midline. LYMPHATICS: No preauricular, submental, submandibular or cervical chain ad enopathy. RESPIRATORY: Clear to auscultation bilaterally with no wheezing, crackles, rhonchi or stridor. CARDIOVASCULAR: Regular rate and rhythm with no murmurs, rubs or gallops. INTEGUMENTARY: No rash or other significant dermatologic conditions noted. HEMATOLOGIC: No ecchymosis or petechiae. PSYCHIATRIC: Positive affect. NEUROLOGIC: Facial sensations are intact. Course Course Patient history and physical exam were performed. Nurses notes were reviewed. Vital signs were reviewed and were normal. I did review documentation from yesterday's visit. The patient's CT scan did show evidence for a 7 x 3 mm abscess at periapical ADA 14. After examining the patient, I then called and discussed the case with Dr. Meyers, maxillofacial surgeon on-call, who was made aware of the patient's infection yesterday. For today, he recommended against CT imaging, but does request that we start an IV and administer additional IV clindamycin, along with labs. He has requested that the patient remain n.p.o. after midnight, and he will evaluate the patient in the morning for possible I&D procedure. The patient was in agreement with this plan as well. IV access was established, and labs were drawn. The patient was hydrated with a liter normal saline, and administered IV clindamycin, Dilaudid and Zofran. At the time of this dictation and end of shift, lab work was still pending. The case was further discussed with the [facility]. Please see their dictation, as well as Dr. Garcia's dictation for further treatment and final disposition. Administered Medications Discontinued Medications Hydromorphone HCl (Hydromorphone Inj 1 Mg/Ml Syringe) 1 mg IV NOW STA Stop: 10/07/22 15:05 Last Admin: 10/07/22 15:41 Dose: 1 mg Documented By: TEVIN Sodium Chloride (Nss 1000ml) 1,000 mls @ 999 mls/hr IV .Q1H1M STA Stop: 10/07/22 16:04 Last Admin: 10/07/22 15:41 Dose: 999 mls/hr Documented By: TEVIN Clindamycin Phosphate (Cleocin/D5w) 900 mg in 50 mls @ 100 mls/hr IV NOW ONE Stop: 10/07/22 15:33 Last Admin: 10/07/22 16:02 Dose: 100 mls/hr Documented By: TEVIN Medical Decision Making Medical Records Attestation: I reviewed the patient's medical records. Home Medications was personally reviewed by me Laboratory Data Attestation: I reviewed the patient's lab results. 10/07/22 15:49 10/07/22 15:49 Lab Results 10/07/22 Range/Units 15:49 WBC 7.15 (4.8-10.8) K/ul RBC 4.14 L (4.20-5.40) M/uL Hgb 12.4 (12.0-16.0) g/dl Hct 37.3 (37.0-47.0) % MCV 90.1 (80.0-100.0) fL MCH 30.0 (25.0-34.0) pg MCHC 33.2 (32.0-36.0) g/dL RDW Std Deviation 48.2 H (36.4-46.3) fL RDW Coeff of Rodrigo 14.9 H (11.5-14.5) % Plt Count 376 (130-400) K/uL MPV 10.6 (9.4-12.4) fL Immature Gran % (Auto) 0.1 % Neut % (Auto) 72.1 % Lymph % (Auto) 21.3 % [place] % (Auto) 5.3 % Eos % (Auto) 0.8 % Baso % (Auto) 0.4 % Neut # (Auto) 5.15 (1.40-6.50) K/uL Lymph # (Auto) 1.52 (1.2-3.4) K/uL [place] # (Auto) 0.38 (0.11-0.59) K/uL Eos # (Auto) 0.06 (0-0.50) K/uL Baso # (Auto) 0.03 (0-0.2) K/uL Immature Gran # (Auto) 0.01 (0.01-0.20) K/uL MDM Narrative See ED course for further details of today's visit. The patient has essentially failed outpatient management with IV antibiotics for a dental abscess that is now resulting in a facial cellulitis. The patient will be admitted for IV antibiotics, and maxillofacial evaluation in the morning for possible I&D procedure. Impression Dental abscess, Facial cellulitis Discharge Plan Visit Data Chief Complaint: Skin Problem Stated Complaint: SWOLLEN FACE, CELLULITIS ED Provider: Jerrell Mccauley ED Midlevel Provider: Ravi Marion Discharge Problem: Dental abscess, Facial cellulitis Forms Stand Alone Forms: My [facility] Prescriptions Prescriptions: No Action ergocalciferol (vitamin D2) [Vitamin D2] 50,000 unit Capsule 50,000 unit PO WK Rx Instructions: TAKE THIS MEDICATION EVERY WEDNESDAY pantoprazole [Protonix] 20 mg Tablet,Delayed Release (Dr/Ec) 20 mg PO QAM sertraline [Zoloft] 50 mg Tablet 75 mg PO QAM cetirizine 10 mg Tablet 10 mg PO QAM albuterol sulfate [Ventolin HFA] 90 mcg/actuation Hfa Aerosol Inhaler 2 puff INHALATION Q4H PRN (Reason: Wheezing) furosemide [Lasix] 40 mg Tablet 40 mg PO QAM albuterol sulfate 0.63 mg/3 mL Solution For Nebulization 0.63 mg INHALATION Q4H PRN (Reason: SHORT OF BREATH) cimetidine 400 mg Tablet 400 mg PO BID methotrexate sodium 25 mg/mL Solution 25 mg subcut WK Rx Instructions: 1 DOSE PER WEEKLY (PT SAYS PEN STATES 0.6ML) TAKES ON SATURDAYS. leucovorin calcium 5 mg Tablet 5 mg PO QAM folic acid 1 mg Tablet 2 mg PO DAILY ondansetron 4 mg tablet,disintegrating 8 mg PO Q6H PRN (Reason: nausea and vomiting) oxycodone 5 mg tablet 5 mg PO Q6H PRN (Reason: pain) Qty: 10 0RF ibuprofen 800 mg tablet 800 mg PO TID PRN (Reason: Pain) thyroid (pork) [LARD MAKER Thyroid] 15 mg tablet 7.5 mg PO QAM Enbrel 50 mg/mL (1 mL) Syringe 50 mg SUBCUT WK Rx Instructions: 01/04- Patient brought own med in, was put in the C pod [place]ridge.Nurse Aware. clindamycin HCl 300 mg capsule 300 mg PO TID 10 Days Qty: 30 0RF oxycodone 5 mg tablet 5 mg PO Q6 PRN (Reason: pain) Qty: 12 0RF Referrals Referrals: Jeannette Nunez DO [Outside Practitioners] -
[2022-10-07] MEDS ORDERED: POLYETHYLENE (MIRALAX) 17 GM PACK PO PRN (15:28)
[2022-10-07] MEDS ORDERED: MAGNESIUM HYDROXIDE SUSP 30 ML UDC PO PRN (15:28)
[2022-10-07] MEDS ORDERED: ALUMINUM/MAGNESIUM SUSP 30 ML UDC PO PRN (15:28)
[2022-10-07] MEDS ORDERED: ACETAMINOPHEN 325 MG TAB PO PRN (15:28)
--- NOTE | 2022-10-07 15:38 | History & Physical Report ---
Date of Service October 07, 2022 Assessment & Plan (1) Dental abscess: (2) Facial cellulitis: (3) Anxiety: (4) Rheumatoid arthritis: (5) Prediabetes: (6) Obesity: (7) GERD (gastroesophageal reflux disease): (8) Tobacco use disorder: (9) Hypothyroidism: Plan 46 y/o with dental abscess that has progressed into facial cellulitis. periapical lucency at ADA 14 and 7x3 mm abscess at buccal surface. Oromaxillofacial consult placed and Dr. Garcia will evaluate for possible I/D on 10/08. Started on IV Clindamycin and made NPO after MN. Dental abscess: Facial cellulitis: -Failed outpatient treatment with p.o. clindamycin and warm compress --Soft Tissue neck CT: 1. A tiny periapical lucency at ADA 14 demonstrating cortical breakthrough at the buccal surface with an adjacent 7 x 3 mm abscess. -Oral maxillofacial consult placed; Dr. Garcia aware -Continue IV clindamycin -N.p.o. after midnight -Plan for possible I/D on 10/08 -No leukocytosis or renal impairment -Dilaudid 1 mg IV in ED; will do scheduled IV Tylenol and Oxycodone PO Q6 PRN for additional pain relief Anxiety and depression: -Takes Sertraline; continue Rheumatoid arthritis: -Follows with outpatient rheumatology -Takes Enbrel and methotrexate; continue -No transaminitis Pre-Diabetes: Obesity: -Takes Metformin; hold while here -Last A1C: 11/04: 5.5. Will recheck here and based on result place on ACHS FSBS SSI. -Taking Wegvoy for weight loss management through PCP -Does not use CPAP machine at home Tobacco Use Disorder: -Recommended cessation -Smokes 5-6 cigarettes per day -Declines Nicotine patch GERD: -Takes Protonic and Cimetidine; continue Hypothyroidism: -TSH 06/2022: 2.69; repeat while here -Takes desiccated thyroid; continue Disposition: PCP: Dr. Castillo Code Status: Full Code VTE Prophylaxis: TEDs and SCDs for now A total of 88 minutes was spent with greater than 50% of that time personally reviewing all current laboratory work and diagnostic imaging studies obtained in the ED. Additionally, I was able to review the patients past medication r econciliation and history with direct visualization in the patients chart. Included in the time above, a portion of that time was spent assessing the patient while discussing and collaborating with specialists, if necessary, and making medical decisions regarding orders to be placed. All of the aforementioned completed while collaborating with Dr. Lynch for a full treatment plan. Please see his addendum for further details. History of Present Illness Chief Complaint: facial swelling Primary Care Provider: Aniya Rose PA-C Ms. Brar is a 46 year old female that presented to the ED today with facial swelling. She presented to the [facility] ED yesterday and soft tissue neck CT revealed a small periapical lucency at ADA 14 demonstrating cortical breakthrough at the buccal surface with an adjacent 7 x 3 mm abscess. She was started on oral Clindamycin and released from the ED. When she returned home she noted some facial swelling that was worsening extending from her temporal area over to her nasal bridge extending to her submandibular area. And returned to the ED. patient stated she has nausea and vomiting that started yesterday. Reports vomit consistency of bile. No known sick exposures. In ED she was given Dilaudid 1 mg IV with relief. Patient reports that this has happened 3 times before with the most recent time 1 month ago and in 2013. Patient denies any surgical intervention for the symptoms. Patient denies visual or auditory changes, urinary or bowel changes, recent falls or trauma, abdominal pain, back pain, dysuria, hematuria or skin rashes. On 10/06 she was seen by her PCP office for facial cellulitis and prescribed oral clindamycin and oxycodone. On 10/07 she called into her PCP office to advise it was worsening, for which she was recommended to proceed to the emergency room. Additional PMH includes: ADD, anxiety and depression, obesity, hypothyroidism, rheumatoid arthritis, and GERD. Patient reports smoking 4 to 5 cigarettes/day, daily marijuana use, no alcohol or other recreational drug use. In the ED, discussion with held between ER physician and Dr. Garcia with oromaxillofacial surgery regarding management. 1LNSB administered and was started on IV clindamycin as recommended. Plan for NPO after might for possible I/D on 10/08. Pt denies difficulty swallowing, tongue swelling, visual or auditory changes, SOB, chest pain, palpitations, nausea, vomiting, diarrhea, recent falls or trauma, abdominal pain. Patient will be admitted for further evaluation and management. Please see A/P for further details. Allergies Allergy/AdvReac Type Severity Reaction Status Date / Time gabapentin Allergy Severe SHORTNESS Verified 10/07/22 16:43 OF BREATH sulfamethoxazole Allergy Severe ANAPHYLAXIS Verified 10/07/22 16:43 tramadol Allergy Severe FEELS LIKE Verified 10/07/22 16:43 BUGS ON BODY trimethoprim Allergy Severe ANAPHYLAXIS Verified 10/07/22 16:43 promethazine Allergy Intermediate HIVES Verified 10/07/22 16:43 ketorolac Allergy Mild rash Verified 10/07/22 16:43 penicillinase Allergy Unknown UNSURE OF Verified 10/07/22 16:43 REACTION propoxyphene Allergy Unknown UNSURE OF Verified 10/07/22 16:43 REACTION basil AdvReac Intermediate headaches Verified 10/07/22 16:43 codeine AdvReac Intermediate GI SYMPTOMS Verified 10/07/22 16:45 metronidazole AdvReac Intermediate THRUSH Verified 10/07/22 16:44 prednisone AdvReac Intermediate vomiting Verified 10/07/22 16:45 venlafaxine AdvReac Intermediate Increase Verified 10/07/22 16:45 agitation. sumatriptan AdvReac Mild RASH Verified 10/07/22 16:45 Home Medications Medication Instructions Recorded Confirmed Type ergocalciferol (vitamin D2) 1,250 50,000 unit PO WK 08/02/18 10/07/22 History mcg (50,000 unit) capsule (Vitamin D2) pantoprazole 20 mg tablet,delayed 20 mg PO QAM 12/25/19 10/07/22 History release (Protonix) sertraline 50 mg tablet (Zoloft) 75 mg PO QAM 03/01/20 10/07/22 History albuterol sulfate 90 mcg/actuation 2 puff inhalation Q4H PRN Wheezing 09/24/20 10/07/22 History aerosol inhaler (Ventolin HFA) cetirizine 10 mg tablet 10 mg PO QAM 09/24/20 10/07/22 History ibuprofen 800 mg tablet 800 mg PO TID PRN Pain 03/18/21 10/07/22 History thyroid (pork) 15 mg tablet (CONVENTION SERVICES MANAGER 7.5 mg PO QAM 03/18/21 10/07/22 History Thyroid) albuterol sulfate 0.63 mg/3 mL 0.63 mg continuous nebulization 05/19/21 10/07/22 History solution for nebulization Q4H PRN SHORT OF BREATH cimetidine 400 mg tablet 400 mg PO BID 05/19/21 10/07/22 History furosemide 40 mg tablet (Lasix) 40 mg PO QAM 05/19/21 10/07/22 History leucovorin calcium 5 mg tablet 5 mg PO QAM 05/19/21 10/07/22 History methotrexate sodium 25 mg/mL 25 mg subcut WK 05/19/21 10/07/22 History injection solution folic acid 1 mg tablet 2 mg PO DAILY 11/11/21 10/07/22 History ondansetron 4 mg disintegrating 8 mg PO Q6H PRN nausea and vomiting 11/11/21 10/07/22 History tablet abatacept 125 mg/mL subcutaneous 125 mg subcut WK 10/07/22 10/07/22 History syringe (Orencia) metformin 500 mg tablet 500 mg PO BID 10/07/22 10/07/22 History Past Med/Surg History Medical History (Updated 10/07/22 @ 16:51 by CHASITY Herrera) ADD (attention deficit disorder) Anxiety and depression Asthma LAST USED INHALER OCTOBER 2020 Encounter for pre-operative examination Fibromyalgia Fluid retention in legs GERD (gastroesophageal reflux disease) History of COVID-01 NOVEMBER 2020 (NO CURRENT PROBLEMS) Hx of phlebitis RT/LEFT ARM S/P IV INSERTION Hypothyroidism Migraine Morbid obesity with BMI of 50.0-59.9, adult Obesity Osteoarthritis Post traumatic stress disorder Prediabetes Rheumatoid arthritis Temporomandibular joint disorder NO LOCKING Tobacco use disorder Surgical History H/O exploratory laparotomy History of ankle surgery LEFT. 03/2020: General LMA with Left popliteal nerve block. History of bilateral tubal ligation History of carpal tunnel release RT X 2, LEFT History of section X 1 History of esophagogastroduodenoscopy (EGD) Hx of cholecystectomy [place] teeth removed Family History Grandmother (Maternal) Family history of diabetes mellitus Other No family history of adverse response to anesthesia No significant family history Social History Smoking Status: Former smoker Tobacco Type: Cigarettes Cigarettes Per Day: 10 CIG DAILY; Second Hand Exposure: Yes; Hx Alcohol Use: Yes Alcohol type: wine Hx Substance Use: Yes Last Used Substance Other:: LAST USED TODAY (ADVISED) Preferred Language: Romansh Communication Ability: Effective Lead Quality Control Technician Required: No Beliefs That Will Affect Care: None marital status: Current Living Situation: Family Current Living Situation Comment: Lives with and children current occupational status: employed Feels Safe at Home: Yes Assistive Devices: Cane, Glasses, Nebulizer and Walker Review of Systems Review of Systems: Neuro: (-) Falls, trauma, slurred speech HEENT: (-) PALMER, dizziness, dysphagia, visual or auditory changes CV: (-) CP, palpitations, swelling Resp: (-) SOB GI: (-) appetite changes, N/V/D, bowel changes : (-) urinary changes Skin: (-) rashes Psych: (-) anxiety, depression Physical Exam Physical Exam: Please see Dr. Lynch's addendum for physical examination Results & Data Results & Data ([facility]) Vital Signs (Past 12 Hours) Vital Signs Temp Pulse Resp BP Pulse Ox O2 Del Method 10/07/22 14:35 36.8 C 83 20 130/82 96 Room Air Laboratory Results Short CBC 10/07/22 Range/Units 15:49 WBC 7.15 (4.8-10.8) K/ul Hgb 12.4 (12.0-16.0) g/dl Hct 37.3 (37.0-47.0) % Plt Count 376 (130-400) K/uL BMP 10/07/22 15:49 Sodium 137 Potassium 4.8 Chloride 105 Carbon Dioxide 30 BUN 12 Creatinine 0.87 Glucose 94 Calcium 9.2 Liver Function 10/07/22 Range/Units 15:49 Total Bilirubin 0.5 (0.2-1.0) mg/dl AST 32 (13-39) U/L ALT 39 (7-52) U/L Alkaline Phosphatase 104 (34-104) U/L Albumin 3.9 (3.4-5.0) gm/dl Code Status & VTE Plan Code Status Full Code in the event of cardiac or respiratory arrest VTE Prophylaxis Plan VTE Prophylaxis will be ordered: Yes Supervising Physician Co-Signing Physician Notes Patient seen and examined History notable for 46yo F with RA, prediabetes, obesity who presents with left facial pain and swelling over the past 3 days. Was seen in ER yesterday and CT neck noted small periapical lucency demonstrating cortical breakthrough at the buccal surface with an adjacent 7 x 3 mm abscess Presents today with worsening left facial pain and swelling Reported she took Methotrexate 3 days ago. She takes MTx and Orena weekly On Physical exam, General: No distress, obese Eyes: PERRL, conjunctivae normal, not pale, anicteric sclerae, EOM intact bilaterally ENMT: External ear and nose normal, Left facial swelling and tenderness over cheekbone Neck: Normal visual inspection, no tracheal deviation, no swelling noted Respiratory: Normal respiratory effort, no respiratory distress, lungs clear to auscultation, no crackles and no wheezes Cardiovascular: RRR S1 S2 Gastrointestinal (Abdomen): Abdomen is not distended, soft, non-tender to palpation, no guarding, no palpable hepatosplenomegaly, normal bowel sounds Musculoskeletal: No pedal edema Neurologic: Alert and oriented x 3, No focal weakness, sensation grossly intact Psychiatric: Euthymic affect Labs today unremarkable Reviewed CT from yesterday ER physician also spoke with maxillofacial surgeon Dr Garcia who recommend IV clindamycin, NPO PMN for possible I&D tomorrow Continue IV clindamycin Full liquid diet and NPO PMN Check HbA1c Pain control Other plans as detailed by Agatha GASPAR
[2022-10-07 16:13] LABS: Basophils # (auto) 0.03 K/uL (0-0.2); Basophils % (auto) 0.4 %; Eosinophils # (auto) 0.06 K/uL (0-0.50); Eosinophils % (auto) 0.8 %; Hematocrit (blood only) 37.3 % (37.0-47.0); Hemoglobin 12.4 g/dl (12.0-16.0); Immature Granulocytes # (auto) 0.01 K/uL (0.01-0.20); Immature Granulocytes % (auto) 0.1 %; Lymphocytes # (auto) 1.52 K/uL (1.2-3.4); Lymphocytes % (auto) 21.3 %; Mean Corpuscular Hgb Conc 33.2 g/dL (32.0-36.0); Mean Corpuscular Volume 90.1 fL (80.0-100.0); Mean Platelet Volume 10.6 fL (9.4-12.4); Monocytes # (auto) 0.38 K/uL (0.11-0.59); Monocytes % (auto) 5.3 %; Neutrophils # (auto) 5.15 K/uL (1.40-6.50); Neutrophils % (auto) 72.1 %; Platelet Count 376 K/uL (130-400); RDW Coefficient of Variation 14.9 % (11.5-14.5); RDW Standard Deviation 48.2 fL (36.4-46.3); Red Blood Count 4.14 M/uL (4.20-5.40); White Blood Count 7.15 K/ul (4.8-10.8)
[2022-10-07] MEDS ORDERED: oxyCODONE HCL IR 5 MG TAB (IMMEDIATE RELEASE) PO PRN (16:27)
[2022-10-07 16:29] LABS: Albumin Globulin Ratio 1.2 (0.9-2); Albumin Level 3.9 gm/dl (3.4-5.0); BUN Creatinine Ratio 13.8 (10-20); Bilirubin,Total 0.5 mg/dl (0.2-1.0); Calcium 9.2 mg/dl (8.5-10.1); Creatinine Clr Calc Pharmacy 112.5 ml/min; Est GFR (African American) 93.2 ml/min; Est GFR (Non-African American) 80.5 ml/min; Globulin 3.3 gm/dl (2.5-4.0); Potassium 4.8 mmol/L (3.5-5.1); Total Protein 7.2 gm/dl (6.0-8.3)
[2022-10-07] MEDS ORDERED: ALBUTEROL HFA 8 GM INHALER INH PRN (16:48)
[2022-10-07] MEDS ORDERED: ALBUTEROL 0.083% NEBU SOLN 3 ML VIAL INH PRN (18:28)
[2022-10-07] MEDS: ACETAMINOPHEN 1,000 MG/100 ML VIAL IV SCH ×2 (18:36→23:47)
[2022-10-07] MEDS ORDERED: HYDROmorphone INJ 0.5 MG/0.5 ML SYR IV PRN (18:56)
[2022-10-07] MEDS: ONDANSETRON INJ 2 MG/ML 2 ML VIAL IV PRN (21:07)
[2022-10-07] MEDS: oxyCODONE HCL IR 5 MG TAB (IMMEDIATE RELEASE) PO PRN (22:16)
[2022-10-07] MEDS: FAMOTIDINE 20 MG TAB PO SCH (23:16)
[2022-10-08] MEDS: CLINDAMYCIN/D5W 900 MG/50 ML BAG IV SCH ×3 (01:42→19:00)
[2022-10-08] MEDS ORDERED: HYDROmorphone INJ 0.5 MG/0.5 ML SYR IV STA (03:15)
[2022-10-08] MEDS ORDERED: HYDROmorphone INJ 1 MG/ML SYRINGE IV STA (03:21)
--- NOTE | 2022-10-08 03:22 | Hospitalist Progress Note ---
Date of Service October 08, 2022 Assessment & Plan Admission and Anticipated Discharge Date Admission Date: October 07, 2022 Results & Data Results & Data ([facility]) Vital Signs (Past 12 Hours) Vital Signs Temp Pulse Pulse Resp BP Pulse Ox O2 Del Method 10/08/22 00:27 75 10/07/22 23:26 37.2 C 69 18 112/67 100 Room Air 10/07/22 21:28 Room Air 10/07/22 21:28 37.0 C 68 18 122/81 98 Room Air
--- NOTE | 2022-10-08 03:22 | Communication Note ---
Date of Service: October 08, 2022 Made aware by RN of worsening swelling/pain in the jaw Some extent under patient's eye as per RN. No shortness of breath as per RN. AP Progressive swelling from odontogenic infection Continue clindamycin Decadron 1 dose now given swelling (patient agreeable to Rx in light of prednisone ADR) Await OMFS input
[2022-10-08] MEDS ORDERED: dexAMETHasone 4 MG in SYRINGE 0 ML IV ONE (03:45)
[2022-10-08] MEDS ORDERED: HYDROmorphone INJ 0.5 MG/0.5 ML SYR IV ONE (03:50)
[2022-10-08 03:57] LABS: Appearance Urine Clear (Clear); Bilirubin Urine Negative (Negative); Blood Urine Negative (Negative); Color Urine Yellow; Glucose Urine UA Negative (Negative); Ketones Urine Negative (Negative); Leukocyte Esterase Urine Negative (Negative); Nitrite Urine Negative (Negative); Protein Urine Negative (Negative); Specific Gravity Urine 1.015 (1.000-1.030); Urobilinogen Urine Negative (Negative); pH Urine 6.5 (4.5-7.5)
[2022-10-08] MEDS: ONDANSETRON INJ 2 MG/ML 2 ML VIAL IV PRN ×2 (03:57→08:02)
[2022-10-08 04:01] LABS: Pregnancy Test, Urine Negative (Negative)
[2022-10-08 06:39] LABS: Albumin Globulin Ratio 1.2 (0.9-2); Albumin Level 3.6 gm/dl (3.4-5.0); Bilirubin,Total 0.9 mg/dl (0.2-1.0); Calcium 8.6 mg/dl (8.5-10.1); Creatinine Clr Calc Pharmacy 126.6 ml/min; Est GFR (African American) 108.1 ml/min; Est GFR (Non-African American) 93.2 ml/min; Magnesium 1.9 mg/dl (1.7-2.4); Potassium 4.2 mmol/L (3.5-5.1); Total Protein 6.6 gm/dl (6.0-8.3)
[2022-10-08] MEDS: ACETAMINOPHEN 1,000 MG/100 ML VIAL IV SCH ×3 (07:52→23:49)
[2022-10-08] MEDS: FUROSEMIDE 40 MG TAB PO SCH (08:03)
[2022-10-08] MEDS ORDERED: FAMOTIDINE 40 MG TABLET PO SCH (09:00)
[2022-10-08] MEDS ORDERED: PANTOprazole 40 MG TAB PO SCH (09:00)
[2022-10-08] MEDS: HYDROmorphone INJ 1 MG/ML SYRINGE IV PRN ×5 (09:02→23:49)
[2022-10-08] MEDS: CETIRIZINE HCL 10 MG TABLET PO SCH (09:34)
[2022-10-08] MEDS: LEUCOVORIN CALCIUM 5 MG TAB PO SCH (09:34)
[2022-10-08] MEDS: SERTRALINE HCL 50 MG TABLET PO SCH (09:37)
[2022-10-08] MEDS: FOLIC ACID 1 MG TAB PO SCH (09:37)
[2022-10-08] MEDS: ARMOUR THYROID 30 MG TAB PO SCH (09:39)
[2022-10-08] MEDS: FAMOTIDINE 20 MG TAB PO SCH ×2 (11:53→21:19)
--- NOTE | 2022-10-08 11:55 | Oral/Maxillofacial Consult ---
Date of Consultation October 08, 2022 History of Present Illness Attending Physician: Clyde Mancini MD History of Present Illness Oral Maxillofacial Surgery Exam emergency admission for acute left facial / oral infection requiring I&D Present Complaint: Acute pain, increasing swelling, failed outpatient therapy. Facial and left eye area swelling x 3 days getting worse and I needed to come to ER I have pain/swelling/drainage from my infected teeth upper left back teeth and fractured tooth # 12 Symptoms have been ongoing for a while. Pain and facial/oral swelling Oral Exam: Finding- swelling/pain/infection associated with the # 12,13,14 teeth, tender gingival tissue with deep pocket formation.Teeth are in an infected removal is clinical indicated to control the infection Imaging: ADDENDUM Impression 4. There is a 1.3 cm left thyroid nodule. Follow-up nonemergent thyro id ultrasound recommended for further evaluation. CT soft tissue neck w con HISTORY: left facial pain, hist cellulitis COMPARISON STUDY: CT facial bones 11/11/2021. FINDINGS: Stable 5 mm periapical lucency at ADA 12 with cortical breakthrough along the buccal surface. There is mild formation at this location without an abscess. There is also tiny periapical lucency at ADA 14 demonstrate cortical breakthrough best seen on image 103. There is an adjacent 7 x 3 mm abscess along the buccal surface with mild adjacent inflammatory change. Multiple dental caries are noted. Mild mucosal thickening within the left maxillary sinus. The mastoid air cells are clear. The visualized brain parenchyma and orbits are unremarkable. The pterygopalatine fossa and parapharyngeal fat spaces are well-maintained. The epiglottis and prevertebral soft tissues are normal in thickness. There is a 1.3 cm left thyroid nodule. The parotid and submandibular glands are symmetric. No cervical lymphadenopathy or masses. Calcified granuloma seen within the left upper lobe. No pneumothorax. No acute fractures identified. The major cervical vessels enhance normally. IMPRESSION: 1. A tiny periapical lucency at ADA 14 demonstrating cortical breakthrough at the buccal surface with an adjacent 7 x 3 mm abscess. 2. No change in the 5 mm periapical lucency at ADA 12. No associated abscess. 3. No lymphadenopathy or masses identified within the neck. Soft tissue: Edema, swelling, redness and pain left infraorbital area . floor of the mouth, tongue, hard/soft palate, posterior pharyngeal area all with in normal limits, no pathology or abnormal findings noted. Oral Care: Overall oral care is fair Occlusion: Class I missing teeth TMJ exam: No pop, clicking, pain, good ROM, No history of TMJ injury or dysfunction Periodontal exam: Moderate gingival tissue hyperplasia with early evidence of periodontal pathology. Head/Neck exam: Neck is supple, FROM, Able to extend and flex neck w/o difficulty, no masses, no abnormalities, no airway issues, ? evidence of sleep apnea. Treatment Plan: NPO, sign consent, plan OR today for I&D with extraction of 12,13,14 Set up with general anesthesia in hospital due to complexity of the procedure I reviewed the treatment plan and consent with the patient Understanding was expressed. Time was given for questions regarding the surgery, risks and post op care. Discussed alternative to treatment--procedure as planned, Do not do surgery The following teeth are decayed and fractured and removal is indicated SINDHU:12,13,14 with facial I&D Risks discussed: Bleeding,Pain,swelling,infection, dry socket, delayed healing, nerve injury to face,lips,tongue,chin area which could be permanent (rare). TMJ, jaw stiffness, change in bite (rare), ear pain (referred). Sinus problems like fistula or infection. Need to leave a small root fragment in place to avoid injury to nerve or sinus. Relationship of wisdom teeth to nerve/sinus and risk of jaw fracture. Home care reviewed: tooth brushing, rinsing, follow up care with Dr Garcia. diet=[id number] dental. Discussed activity level, driving/work while on Rx pain Meds. Surgery to be set up later this afternoon in the OR with [facility] Allergies Allergy/AdvReac Type Severity Reaction Status Date / Time gabapentin Allergy Severe SHORTNESS Verified 10/07/22 16:43 OF BREATH sulfamethoxazole Allergy Severe ANAPHYLAXIS Verified 10/07/22 16:43 tramadol Allergy Severe FEELS LIKE Verified 10/07/22 16:43 BUGS ON BODY trimethoprim Allergy Severe ANAPHYLAXIS Verified 10/07/22 16:43 promethazine Allergy Intermediate HIVES Verified 10/07/22 16:43 ketorolac Allergy Mild rash Verified 10/07/22 16:43 penicillinase Allergy Unknown UNSURE OF Verified 10/07/22 16:43 REACTION propoxyphene Allergy Unknown UNSURE OF Verified 10/07/22 16:43 REACTION basil AdvReac Intermediate headaches Verified 10/07/22 16:43 codeine AdvReac Intermediate GI SYMPTOMS Verified 10/07/22 16:45 metronidazole AdvReac Intermediate THRUSH Verified 10/07/22 16:44 prednisone AdvReac Intermediate vomiting Verified 10/07/22 16:45 venlafaxine AdvReac Intermediate Increase Verified 10/07/22 16:45 agitation. sumatriptan AdvReac Mild RASH Verified 10/07/22 16:45 Home Medications Medication Instructions Recorded Confirmed Type ergocalciferol (vitamin D2) 1,250 50,000 unit PO WK 08/02/18 10/07/22 History mcg (50,000 unit) capsule (Vitamin D2) pantoprazole 20 mg tablet,delayed 20 mg PO QAM 12/25/19 10/07/22 History release (Protonix) sertraline 50 mg tablet (Zoloft) 75 mg PO QAM 03/01/20 10/07/22 History albuterol sulfate 90 mcg/actuation 2 puff inhalation Q4H PRN Wheezing 09/24/20 10/07/22 History aerosol inhaler (Ventolin HFA) cetirizine 10 mg tablet 10 mg PO QAM 09/24/20 10/07/22 History ibuprofen 800 mg tablet 800 mg PO TID PRN Pain 03/18/21 10/07/22 History thyroid (pork) 15 mg tablet ([employer]JECT [employer]NAGER 7.5 mg PO QAM 03/18/21 10/07/22 History Thyroid) albuterol sulfate 0.63 mg/3 mL 0.63 mg continuous nebulization 05/19/21 10/07/22 History solution for nebulization Q4H PRN SHORT OF BREATH cimetidine 400 mg tablet 400 mg PO BID 05/19/21 10/07/22 History furosemide 40 mg tablet (Lasix) 40 mg PO QAM 05/19/21 10/07/22 History leucovorin calcium 5 mg tablet 5 mg PO QAM 05/19/21 10/07/22 History methotrexate sodium 25 mg/mL 25 mg subcut WK 05/19/21 10/07/22 History injection solution folic acid 1 mg tablet 2 mg PO DAILY 11/11/21 10/07/22 History ondansetron 4 mg disintegrating 8 mg PO Q6H PRN nausea and vomiting 11/11/21 10/07/22 History tablet abatacept 125 mg/mL subcutaneous 125 mg subcut WK 10/07/22 10/07/22 History syringe (Orencia) metformin 500 mg tablet 500 mg PO BID 10/07/22 10/07/22 History Patient History Medical History (Updated 10/07/22 @ 16:51 by CHASITY Herrera) ADD (attention deficit disorder) Anxiety and depression Asthma LAST USED INHALER OCTOBER 2020 Encounter for pre-operative examination Fibromyalgia Fluid retention in legs GERD (gastroesophageal reflux disease) History of COVID-01 NOVEMBER 2020 (NO CURRENT PROBLEMS) Hx of phlebitis RT/LEFT ARM S/P IV INSERTION Hypothyroidism Migraine Morbid obesity with BMI of 50.0-59.9, adult Obesity Osteoarthritis Post traumatic stress disorder Prediabetes Rheumatoid arthritis Temporomandibular joint disorder NO LOCKING Tobacco use disorder Surgical History H/O exploratory laparotomy History of ankle surgery LEFT. 03/2020: General LMA with Left popliteal nerve block. History of bilateral tubal ligation History of carpal tunnel release RT X 2, LEFT History of section X 1 History of esophagogastroduodenoscopy (EGD) Hx of cholecystectomy [place] teeth removed Family History Grandmother (Maternal) Family history of diabetes mellitus Other No family history of adverse response to anesthesia No significant family history Social History Smoking Status: Current every day smoker Tobacco Type: Cigarettes Cigarettes Per Day: 10 CIG DAILY; Second Hand Exposure: Yes; Hx Alcohol Use: Yes Alcohol type: beer and wine Hx Substance Use: Yes Last Used Substance: Days (ago) Last Used Substance Other:: LAST USED TODAY (ADVISED) Preferred Language: Surinamese Communication Ability: Effective Gel Coater Required: No Beliefs That Will Affect Care: None marital status: Current Living Situation: Spouse Current Living Situation Comment: Lives with and children current occupational status: employed Feels Safe at Home: Yes Assistive Devices: Cane and Walker Results & Data ([facility]) Vital Signs (Past 12 Hours) Vital Signs Temp Pulse Pulse Resp BP Pulse Ox O2 Del Method 10/08/22 11:36 36.8 C 71 16 136/83 94 Room Air 10/08/22 07:41 36.8 C 70 14 124/64 96 Room Air 10/08/22 06:22 72 10/08/22 03:24 37 C 74 18 120/69 95 Room Air 10/08/22 00:27 75 PG Care Time/CCT Total # of Minutes Spent Total Time Spent with Patient: Total time spent is greater than 50% in coordination of care (as documented) at patient's floor/unit and/or counseling patient: Coding Level of Care Code 55657 Inpt Consult Level 1 Diagnoses
--- NOTE | 2022-10-08 12:03 | Anesthesiology Consultation ---
Date of Service October 08, 2022 Assessment & Plan Chart Review Chart Review: entry level account representative initiated History Surgery Operation Date: 10/08/22 13:40 Proposed Procedures p Left Incision and Drainage Facial Abscess - Vicente Garcia DMD s Teeth Extractions x3 - Vicente Garcia DMD Height/Weight Height: 5 ft 4 in Weight: 135.2 kg Allergies Allergy/AdvReac Type Severity Reaction Status Date / Time gabapentin Allergy Severe SHORTNESS Verified 10/07/22 16:43 OF BREATH sulfamethoxazole Allergy Severe ANAPHYLAXIS Verified 10/07/22 16:43 tramadol Allergy Severe FEELS LIKE Verified 10/07/22 16:43 BUGS ON BODY trimethoprim Allergy Severe ANAPHYLAXIS Verified 10/07/22 16:43 promethazine Allergy Intermediate HIVES Verified 10/07/22 16:43 ketorolac Allergy Mild rash Verified 10/07/22 16:43 penicillinase Allergy Unknown UNSURE OF Verified 10/07/22 16:43 REACTION propoxyphene Allergy Unknown UNSURE OF Verified 10/07/22 16:43 REACTION basil AdvReac Intermediate headaches Verified 10/07/22 16:43 codeine AdvReac Intermediate GI SYMPTOMS Verified 10/07/22 16:45 metronidazole AdvReac Intermediate THRUSH Verified 10/07/22 16:44 prednisone AdvReac Intermediate vomiting Verified 10/07/22 16:45 venlafaxine AdvReac Intermediate Increase Verified 10/07/22 16:45 agitation. sumatriptan AdvReac Mild RASH Verified 10/07/22 16:45 Medications Home Medications Medication Instructions Recorded Confirmed Last Taken ergocalciferol (vitamin D2) 1,250 50,000 unit PO WK 08/02/18 10/07/22 11/10/21 mcg (50,000 unit) capsule (Vitamin D2) pantoprazole 20 mg tablet,delayed 20 mg PO QAM 12/25/19 10/07/22 11/11/21 release (Protonix) sertraline 50 mg tablet (Zoloft) 75 mg PO QAM 03/01/20 10/07/22 11/11/21 albuterol sulfate 90 mcg/actuation 2 puff inhalation Q4H PRN Wheezing 09/24/20 10/07/22 Unknown aerosol inhaler (Ventolin HFA) cetirizine 10 mg tablet 10 mg PO QAM 09/24/20 10/07/22 11/11/21 ibuprofen 800 mg tablet 800 mg PO TID PRN Pain 03/18/21 10/07/22 11/11/21 thyroid (pork) 15 mg tablet (BUG TRIMMER 7.5 mg PO QAM 03/18/21 10/07/22 11/11/21 Thyroid) albuterol sulfate 0.63 mg/3 mL 0.63 mg continuous nebulization 05/19/21 10/07/22 Unknown solution for nebulization Q4H PRN SHORT OF BREATH cimetidine 400 mg tablet 400 mg PO BID 05/19/21 10/07/22 11/11/21 furosemide 40 mg tablet (Lasix) 40 mg PO QAM 05/19/21 10/07/22 11/11/21 leucovorin calcium 5 mg tablet 5 mg PO QAM 05/19/21 10/07/22 11/11/21 methotrexate sodium 25 mg/mL 25 mg subcut WK 05/19/21 10/07/22 11/06/21 injection solution folic acid 1 mg tablet 2 mg PO DAILY 11/11/21 10/07/22 11/11/21 ondansetron 4 mg disintegrating 8 mg PO Q6H PRN nausea and vomiting 11/11/21 10/07/22 11/10/21 tablet abatacept 125 mg/mL subcutaneous 125 mg subcut WK 10/07/22 10/07/22 Unknown syringe (Orencia) metformin 500 mg tablet 500 mg PO BID 10/07/22 10/07/22 Unknown Active Medications Generic Name Dose Route Start Last Admin Trade Name Freq PRN Reason Stop Dose Admin Cetirizine HCl 10 mg 10/08/22 09:00 10/08/22 09:34 Cetirizine Hcl 10 Mg Tablet PO 11/07/22 08:59 10 mg QAM BRONSON Administration Famotidine 20 mg 10/07/22 22:45 10/08/22 11:53 Famotidine 20 Mg Tab PO 11/06/22 22:44 Not Given BID BRONSON Folic Acid 2 mg 10/08/22 09:00 10/08/22 09:37 Folic Acid 1 Mg Tab PO 11/07/22 08:59 2 mg DAILY BRONSON Administration Furosemide 40 mg 10/08/22 09:00 10/08/22 08:03 Furosemide 40 Mg Tab PO 11/07/22 08:59 Not Given QAM BRONSON Hydromorphone HCl 1 mg 10/08/22 03:21 10/08/22 09:02 Hydromorphone Inj 1 Mg/Ml Syringe IV 10/21/22 18:55 1 mg Q4H PRN Administration Severe Pain (Scale 7, 8, 9,10) Acetaminophen 1,000 mg in 100 mls @ 400 mls/hr 10/07/22 16:30 10/08/22 08:07 Ofirmev IV 10/10/22 16:29 Infused Q8H BRONOSN Infusion Clindamycin Phosphate 900 mg in 50 mls @ 100 mls/hr 10/08/22 02:00 10/08/22 10:03 Cleocin/D5w IV 10/18/22 01:59 Infused Q8H BRONSON Infusion Leucovorin Calcium 5 mg 10/08/22 09:00 10/08/22 09:34 Leucovorin Calcium 5 Mg Tab PO 11/07/22 08:59 5 mg QAM BRONSON Administration Ondansetron HCl 4 mg 10/08/22 07:52 10/08/22 08:02 Ondansetron Inj 2 Mg/Ml 2 Ml Vial IV 11/06/22 15:27 4 mg Q4H PRN Administration Nausea Oxycodone HCl 5 - 10 mg 10/07/22 18:56 10/07/22 22:16 Oxycodone Hcl Ir 5 Mg Tab (Immediate Release) PO 10/21/22 16:26 10 mg Q6H PRN Administration mild to moderate pain Sertraline HCl 75 mg 10/08/22 09:00 10/08/22 09:37 Sertraline Hcl 50 Mg Tablet PO 11/07/22 08:59 75 mg QAM BRONSON Administration Thyroid 7.5 mg 10/08/22 09:00 10/08/22 09:39 [place] Thyroid 30 Mg Tab PO 11/07/22 08:59 7.5 mg QAM BRONSON Administration Past Medical History Medical History ADD (attention deficit disorder) Anxiety and depression Asthma LAST USED INHALER OCTOBER 2020 Encounter for pre-operative examination Fibromyalgia Fluid retention in legs GERD (gastroesophageal reflux disease) History of COVID-01 NOVEMBER 2020 (NO CURRENT PROBLEMS) Hx of phlebitis RT/LEFT ARM S/P IV INSERTION Hypothyroidism Migraine Morbid obesity with BMI of 50.0-59.9, adult Obesity Osteoarthritis Post traumatic stress disorder Prediabetes Rheumatoid arthritis Temporomandibular joint disorder NO LOCKING Tobacco use disorder Past Family History Family History Grandmother (Maternal) Family history of diabetes mellitus Other No family history of adverse response to anesthesia No significant family history Past Surgical History Surgical History H/O exploratory laparotomy History of ankle surgery LEFT. 03/2020: General LMA with Left popliteal nerve block. History of bilateral tubal ligation History of carpal tunnel release RT X 2, LEFT History of section X 1 History of esophagogastroduodenoscopy (EGD) Hx of cholecystectomy [place] teeth removed Social History Smoking Status: Current every day smoker tobacco type: cigarettes Smoking cigarettes per day: 10 CIG DAILY Do You Dip or Chew Tobacco: No Hx Alcohol Use: Yes Alcohol type: beer and wine alcohol intake frequency: holidays/special occasions only Hx Substance Use: Yes substance use type: marijuana Last Used Substance: Days (ago) Last Used Substance Other:: LAST USED TODAY (ADVISED) Physical Exam Vital Signs Last Vital Signs Temp 98.2 F 10/08/22 11:36 Pulse 71 10/08/22 11:36 Resp 16 10/08/22 11:36 BP 136/83 10/08/22 11:36 Pulse Ox 94 10/08/22 11:36 O2 Del Method Room Air 10/08/22 11:36 Testing Laboratory Results 10/07/22 15:49 10/08/22 05:40 Urine Color Yellow 10/08/22 03:05 Urine Appearance Clear (Clear) 10/08/22 03:05 Urine pH 6.5 (4.5-7.5) 10/08/22 03:05 Ur Specific [place] 1.015 (1.000-1.030) 10/08/22 03:05 Urine Protein Negative (Negative) 10/08/22 03:05 Urine Glucose (UA) Negative (Negative) 10/08/22 03:05 Urine Ketones Negative (Negative) 10/08/22 03:05 Urine Nitrite Negative (Negative) 10/08/22 03:05 Ur Leukocyte Esterase Negative (Negative) 10/08/22 03:05 Urine Test Negative (Negative) 10/08/22 03:05 10/08/22 03:05 Urine Test Negative Electrocardiogram Date: 03/30/22 Normal sinus rhythm, rate 70 bpm Low voltage QRS Poor R wave progression, consider anterior GA vs. lead placement vs. LVH Abnormal ECG When compared with ECG of 04-JAN-2022 18:59, No significant change was found Confirmed by Dheeraj Yoder ([id number]) on 03/30/2022 3:11:32 PM Chest X-Ray Date: 09/02/22 Findings: + NAD
[2022-10-08] MEDS: oxyCODONE HCL IR 5 MG TAB (IMMEDIATE RELEASE) PO PRN ×2 (12:20→21:20)
--- NOTE | 2022-10-08 15:00 | Hospitalist Progress Note ---
Date of Service October 08, 2022 Assessment & Plan (1) Dental abscess: (2) Facial cellulitis: (3) Anxiety: (4) Rheumatoid arthritis: (5) Prediabetes: (6) Obesity: (7) GERD (gastroesophageal reflux disease): (8) Tobacco use disorder: (9) Hypothyroidism: Plan Patient is a 46 yr female with H/O dental abscess that has progressed into facial cellulitis. periapical lucency at ADA 14 and 7x3 mm abscess at buccal surface. Oromaxillofacial consult placed and Dr. Garcia will evaluate for possible I/D on 10/08. Dental abscess/Facial cellulitis Failed outpatient treatment with p.o. clindamycin and warm compress --Soft Tissue neck CT:A tiny periapical lucency at ADA 14 demonstrating cortical breakthrough at the buccal surface with an adjacent 7 x 3 mm abscess. No change in the 5 mm periapical lucency at ADA 12. No associated abscess. No lymphadenopathy or masses identified within the neck.There is a 1.3 cm left thyroid nodule. Follow-up nonemergent thyroid ultrasound recommended for further evaluation. -- Continue IV fluids Continue IV clindamycin Appreciate oral maxillofacial surgery input Plan for incision and drainage of the abscess today N.p.o. for now Pain control Anxiety and depression: Continue Sertraline Rheumatoid arthritis: Follows with outpatient rheumatology Hold Abatacept and methotrexate for now Pre-Diabetes: Morbid Obesity: BMI 51 Hold Metformin Also on semaglutide Tobacco Use Disorder: Recommended cessation Declines Nicotine patch GERD: continue PPI Hypothyroidism: Left thyroid nodule: On CT as above TSH 06/2022: 2.69 Continue home meds Needs follow up as outpatient DVT Px: SCDs for now Code Status: Full Code Admission and Anticipated Discharge Date Admission Date: October 07, 2022 Subjective Patient is seen and examined at bedside States having left facial/dental pain, swelling Plan for incision and drainage of facial abscess today Also reports nausea but no vomiting Denies any chest pain, shortness of breath, dizziness, abdominal pain No other complaints Review of Systems Review of Systems: All systems reviewed & are unremarkable except as noted in Subjective Physical Exam Physical Exam: Physical Exam: Vitals signs as noted above General Appearance:Morbid Obesity, no apparent distress Head: normocephalic, Atraumatic, Left facial swelling, tenderness Eyes: normal inspection, EOMI Neck: supple, Trachea midline Respiratory/Chest: Normal breath sounds, CTA, No accessory muscle use Cardiovascular: S1, S2, No murmur Abdomen/GI:Soft, Non tender, Bowel sounds present Extremities/Musculoskeletal:normal inspection, no edema Neurologic/Psych:AAOX3, grossly no focal neurological deficits Skin: normal color, warm Results & Data Results & Data ([facility]) Vital Signs (Past 12 Hours) Vital Signs Temp Pulse Pulse Resp BP Pulse Ox O2 Del Method 10/08/22 11:36 36.8 C 71 16 136/83 94 Room Air 10/08/22 07:41 36.8 C 70 14 124/64 96 Room Air 10/08/22 06:22 72 10/08/22 03:24 37 C 74 18 120/69 95 Room Air Laboratory Results Short CBC 10/07/22 Range/Units 15:49 WBC 7.15 (4.8-10.8) K/ul Hgb 12.4 (12.0-16.0) g/dl Hct 37.3 (37.0-47.0) % Plt Count 376 (130-400) K/uL BMP 10/07/22 10/08/22 15:49 05:40 Sodium 137 136 Potassium 4.8 4.2 Chloride 105 106 Carbon Dioxide 30 27 BUN 12 10 Creatinine 0.87 0.77 Glucose 94 91 Calcium 9.2 8.6 Liver Function 10/07/22 10/08/22 Range/Units 15:49 05:40 Total Bilirubin 0.5 0.9 (0.2-1.0) mg/dl AST 32 320 H (13-39) U/L ALT 39 249 H (7-52) U/L Alkaline Phosphatase 104 124 H (34-104) U/L Albumin 3.9 3.6 (3.4-5.0) gm/dl Urine 10/08/22 Range/Units 03:05 Urine Color Yellow Urine Appearance Clear (Clear) Urine pH 6.5 (4.5-7.5) Ur Specific [place] 1.015 (1.000-1.030) Urine Protein Negative (Negative) Urine Glucose (UA) Negative (Negative)
[2022-10-08] MEDS ORDERED: SODIUM CHLORIDE 0.9% 1000ML 1,000 ML IV ONE (15:06)
[2022-10-08] MEDS ORDERED: PROPOFOL IV EMULSION 10 MG/ML 20 ML VIAL IV ONE (16:27)
[2022-10-08] MEDS ORDERED: fentaNYL citrate 100 MCG/2 ML VIAL ONE (16:27)
[2022-10-08] MEDS ORDERED: ONDANSETRON INJ 2 MG/ML 2 ML VIAL ONE (16:27)
[2022-10-08] MEDS ORDERED: MIDAZOLAM HCL 1 MG/ML 2ML VIAL ONE (16:27)
[2022-10-08] MEDS ORDERED: BUPIVACAINE/EPINEPHRINE 0.5% 1:200,000 1.8 ML CARP ONE (16:28)
[2022-10-08] MEDS ORDERED: CHLORHEXIDINE GLUCONATE 0.12% 480 ML MT ONE (16:28)
[2022-10-08] MEDS ORDERED: LIDOCAINE 2% MPF LOCAL 5 ML VIAL INFIL ONE (16:31)
[2022-10-08] MEDS ORDERED: DEXAMETHASONE SOD INJ 4 MG/ML VIAL ONE (16:31)
--- NOTE | 2022-10-08 16:44 | History & Physical Bridge Note ---
Date of Service October 08, 2022 History & Physical Bridge Note I have examined the patient, reviewed the History & Physical and in the interval since the performance of the History & Physical I have noted the following changes of clinical significance: no changes noted. still in a lot of pain and swollen Plan I&D with extractions
[2022-10-08] MEDS ORDERED: ATROPINE SULFATE 0.1 MG/ML 10ML SYR IV PRN (17:01)
[2022-10-08] MEDS ORDERED: ONDANSETRON INJ 2 MG/ML 2 ML VIAL IV PRN (17:01)
[2022-10-08] MEDS ORDERED: fentaNYL citrate 100 MCG/2 ML VIAL IV PRN (17:01)
[2022-10-08] MEDS ORDERED: GLYCOPYRROLATE 0.2 MG/ML VIAL ONE (17:37)
[2022-10-08] MEDS ORDERED: NEOSTIGMINE METHYLSULFATE 1 MG/ML 10ML VIAL ONE (17:37)
--- NOTE | 2022-10-08 18:15 | Operative Report ---
PG Post Operative Report Pre & Post Diagnosis I&D vestibular abscess with extension into infraorbital space CPT 34184 com plex Simple extraction of # 12,13,14 D7140 X 3 at $80 = $240 K10.20 Maxillary abscess with extension into infraorbital space and subperiosteal space Operation Date: 10/08/22 13:40 Pre-Op Diagnosis: left intraorbital abscess Post-Op Diagnosis: left intraorbital abscess I identified the patient and participated in the time-out.: Yes Procedure I&D vestibular abscess with extension into infraorbital space CPT 02996 complex Simple extraction of # 12,13,14 D7140 X 3 at $80 = $240 K10.20 Maxillary abscess with extension into infraorbital space and subperiosteal space Operation Date: 10/08/22 13:40 Actual Procedures p Left Incision and Drainage Facial Abscess(Not Applicable) - Vicente Garcia DMD s Teeth Extractions: #14, #13, #12 (Not Applicable) - Vicente Garcia DMD Surgeon Vicente Garcia DMD [employer] Worker none Estimated Blood Loss 5 Findings Consistent with Post-Op Diagnosis acute facial abscess and carious teeth 12,13,14 Specimens none Drains none Anesthesia Type General Complications none Indications acute facial abscess and carious teeth 12,13,14 Description of Procedure I&D vestibular abscess with extension into infraorbital space CPT 95530 complex Simple extraction of # 12,13,14 D7140 X 3 at $80 = $240 K10.20 Maxillary abscess with extension into infraorbital space and subperiosteal space Actual Procedures p Incision and Drainage left infraorbital and subperiosteal Abscess; Removal of Tooth #12,13,14 (Not Applicable) - Vicente Garcia DMD Once cleared for surgery general anesthesia was achieved, the eyes were pr otected by the anesthesia dept criteria. A time out was take for patient ID, antibiotics, equipment and position verification once all agreed the procedure began. Local anesthesia using Marcaine with a vasoconstrictor ( 1.8 ml per site) given into left maxillary nerve block A throat pack was placed after the oral cavity was irrigated with saline. Once a surgical level of anesthesia was obtained and the local anesthesia was given time for the blocks the surgery was started. I turned my attention to the infection which was located upper left side of the face, under left eye and subperiosteal area swelling associated with tooth # 12,13,14 swelling palate also ( see CT scan report) Incision and Drainage I&D vestibular abscess with extension into infraorbital space CPT 69215 complex Using a 15 blade an incision was made around the soft swollen tissue from # 11 - 15 area Once the incision was made a lot of pus extruded from the site. A curved hemostat was carefully placed into the infected space along the lateral side of the upper jaw and into the infraorbital space space. Some further drainage was now allowed to escape. I palpated the cheek and infraorbital area and no further drainage was expressed. The infraorbital and subperiosteal area were no adequacy drained. The area was irrigated with at least 100 ml of NS solution. I now turned my attention to remove the upper infected teeth Upper teeth # 12,13,14 D7140 X 3 at $80 = $240 The full thick Muco-periosteal flap was reflected to expose the the subperiosteal space and the bone adjacent to teeth 12,13,14. The rogue was used to remove bone, the tooth was removed with a 301 elevator and dental forceps, there was a large amount of granulation tissue on the apex of # 14 and this drained the palatal abscess. I inspected the sites to insure all bleeding was controlled. I removed the throat pack and suctioned the throat. A gauze pressure dressings were placed. All instrument and sponge count was correct. the patient was allowed to awake from the anesthesia. Once full awake the anesthesia tube was removed and the patient was taken to the recovery room with all vital sign stable. The patient tolerated the surgery very well. I will follow the patient in my office, Rx and instructions will be given upon discharge. I attest to the content of the Intraoperative Record and any orders documented therein. Any exceptions are noted below.
--- NOTE | 2022-10-08 18:20 | Anesthesiology Progress Note ---
Date of Service October 08, 2022 Anesthesia Post Procedure Vital Signs Vital Signs: Temp Pulse Pulse Pulse Resp BP Pulse Ox 10/08/22 18:10 36.2 C L 90 12 159/94 H 99 10/08/22 18:00 36.2 C L 93 H 11 L 156/83 H 99 10/08/22 17:52 36.2 C L 94 H 15 148/106 H 99 10/08/22 16:00 37.1 C 72 18 108/60 95 10/08/22 14:20 76 10/08/22 11:36 36.8 C 71 16 136/83 94 10/08/22 07:41 36.8 C 70 14 124/64 96 10/08/22 06:22 72 10/08/22 03:24 37 C 74 18 120/69 95 10/08/22 00:27 75 10/07/22 23:26 37.2 C 69 18 112/67 100 10/07/22 21:28 10/07/22 21:28 37.0 C 68 18 122/81 98 O2 Del Method O2 Flow Rate 10/08/22 18:10 Oxymask 7 10/08/22 18:00 Oxymask 7 10/08/22 17:52 Oxymask 7 10/08/22 16:00 Room Air 10/08/22 14:20 10/08/22 11:36 Room Air 10/08/22 07:41 Room Air 10/08/22 06:22 10/08/22 03:24 Room Air 10/08/22 00:27 10/07/22 23:26 Room Air 10/07/22 21:28 Room Air 10/07/22 21:28 Room Air Pain Intensity Left Cheek: Pain Intensity: 5 Transfer of Care Handoff Completed per policy Notes Mental Status: alert / awake / arousable Patient Amnestic to Procedure: Yes Nausea / Vomiting: adequately controlled Pain: adequately controlled Airway Patency, RR, SpO2: stable & adequate BP & HR: stable & adequate Hydration State: stable & adequate Anesthetic Complications: no major complications apparent
[2022-10-09] MEDS: CLINDAMYCIN/D5W 900 MG/50 ML BAG IV SCH ×3 (02:38→17:03)
[2022-10-09] MEDS: HYDROmorphone INJ 1 MG/ML SYRINGE IV PRN ×4 (03:39→23:05)
[2022-10-09] MEDS: ONDANSETRON INJ 2 MG/ML 2 ML VIAL IV PRN ×2 (03:42→11:55)
[2022-10-09] MEDS: oxyCODONE HCL IR 5 MG TAB (IMMEDIATE RELEASE) PO PRN ×3 (06:10→19:48)
[2022-10-09] MEDS: ACETAMINOPHEN 1,000 MG/100 ML VIAL IV SCH ×2 (08:19→16:26)
[2022-10-09] MEDS: FUROSEMIDE 40 MG TAB PO SCH (08:21)
[2022-10-09] MEDS: ARMOUR THYROID 30 MG TAB PO SCH (08:22)
[2022-10-09] MEDS: LEUCOVORIN CALCIUM 5 MG TAB PO SCH (08:22)
[2022-10-09] MEDS: SERTRALINE HCL 50 MG TABLET PO SCH (08:22)
[2022-10-09] MEDS: CETIRIZINE HCL 10 MG TABLET PO SCH (08:22)
[2022-10-09] MEDS: FAMOTIDINE 20 MG TAB PO SCH ×2 (08:22→20:00)
[2022-10-09] MEDS: FOLIC ACID 1 MG TAB PO SCH (08:23)
[2022-10-09] MEDS: PANTOprazole 40 MG TAB PO SCH (08:23)
[2022-10-09 08:55] LABS: Hematocrit (blood only) 38.1 % (37.0-47.0); Hemoglobin 12.9 g/dl (12.0-16.0); Mean Corpuscular Hemoglobin 29.9 pg (25.0-34.0); Mean Corpuscular Hgb Conc 33.9 g/dL (32.0-36.0); Mean Corpuscular Volume 88.4 fL (80.0-100.0); Mean Platelet Volume 10.8 fL (9.4-12.4); Platelet Count 462 K/uL (130-400); RDW Coefficient of Variation 14.6 % (11.5-14.5); RDW Standard Deviation 47.2 fL (36.4-46.3); Red Blood Count 4.31 M/uL (4.20-5.40); White Blood Count 14.41 K/ul (4.8-10.8)
[2022-10-09 09:12] LABS: Albumin Globulin Ratio 1.1 (0.9-2); Albumin Level 3.9 gm/dl (3.4-5.0); BUN Creatinine Ratio 15.1 (10-20); Bilirubin,Total 0.5 mg/dl (0.2-1.0); Calcium 9.2 mg/dl (8.5-10.1); Creatinine Clr Calc Pharmacy 133.5 ml/min; Est GFR (African American) 115.3 ml/min; Est GFR (Non-African American) 99.5 ml/min; Globulin 3.6 gm/dl (2.5-4.0); Magnesium 1.9 mg/dl (1.7-2.4); Potassium 4.1 mmol/L (3.5-5.1); Total Protein 7.5 gm/dl (6.0-8.3)
[2022-10-09] MEDS ORDERED: diphenhydrAMINE HCL 25 MG/10 ML UDC PO PRN ×2 (11:50→13:45)
[2022-10-09] MEDS ORDERED: hydrOXYzine HCl 10 MG TAB PO PRN (13:44)
--- NOTE | 2022-10-09 16:48 | Hospitalist Progress Note ---
Date of Service October 09, 2022 Assessment & Plan (1) Dental abscess: (2) Facial cellulitis: (3) Anxiety: (4) Rheumatoid arthritis: (5) Prediabetes: (6) Obesity: (7) GERD (gastroesophageal reflux disease): (8) Tobacco use disorder: (9) Hypothyroidism: Plan Patient is a 46 yr female with H/O dental abscess that has progressed into facial cellulitis. periapical lucency at ADA 14 and 7x3 mm abscess at buccal surface. Oromaxillofacial consult placed and Dr. Garcia will evaluate for possible I/D on 10/08. Facial cellulitis Left intraorbital abscess Failed outpatient treatment with p.o. clindamycin and warm compress --Soft Tissue neck CT:A tiny periapical lucency at ADA 14 demonstrating cortical breakthrough at the buccal surface with an adjacent 7 x 3 mm abscess. No change in the 5 mm periapical lucency at ADA 12. No associated abscess. No lymphadenopathy or masses identified within the neck.There is a 1.3 cm left thyroid nodule. Follow-up nonemergent thyroid ultrasound recommended for further evaluation. S/P left incision and drainage of facial abscess on 10/08/22 by --Continue IV clindamycin Received IV fluids Appreciate oral maxillofacial surgery input Pain control Advance diet as tolerated Possible allergic reaction Unclear etiology Benadryl as needed Refuses steroids Monitor Anxiety and depression: Continue Sertraline Rheumatoid arthritis: Follows with outpatient rheumatology Hold Abatacept and methotrexate for now Pre-Diabetes: Morbid Obesity: BMI 51 Hold Metformin Also on semaglutide Tobacco Use Disorder: Recommended cessation Declines Nicotine patch GERD: continue PPI Hypothyroidism: Left thyroid nodule: On CT as above TSH 06/2022: 2.69 Continue home meds Needs follow up as outpatient DVT Px: SCDs for now Code Status: Full Code Admission and Anticipated Discharge Date Admission Date: October 07, 2022 Subjective Patient is seen and examined at bedside left facial swelling is better Facial/dental pain is persistent Still has nausea Denies any chest pain, shortness of breath, dizziness, abdominal pain Reports rash on chest which is itchy Review of Systems Review of Systems: All systems reviewed & are unremarkable except as noted in Subjective Physical Exam Physical Exam: Physical Exam: Vitals signs as noted above General Appearance:Morbid Obesity, no apparent distress Head: normocephalic, Atraumatic, Left facial swelling, tenderness Eyes: normal inspection, EOMI Neck: supple, Trachea midline Respiratory/Chest: Normal breath sounds, CTA, No accessory muscle use Cardiovascular: S1, S2, No murmur Abdomen/GI:Soft, Non tender, Bowel sounds present Extremities/Musculoskeletal:normal inspection, no edema Neurologic/Psych:AAOX3, grossly no focal neurological deficits Skin: normal color, warm Results & Data Results & Data ([facility]) Vital Signs (Past 12 Hours) Vital Signs Temp Pulse Pulse Resp BP Pulse Ox O2 Del Method 10/09/22 16:33 36.5 C 72 16 102/69 98 Room Air 10/09/22 14:13 80 10/09/22 12:00 37.0 C 74 16 130/82 97 Room Air 10/09/22 05:56 79 10/09/22 08:00 36.9 C 87 15 150/79 H 96 Room Air Laboratory Results Short CBC 10/09/22 Range/Units 07:55 WBC 14.41 H (4.8-10.8) K/ul Hgb 12.9 (12.0-16.0) g/dl Hct 38.1 (37.0-47.0) % Plt Count 462 H (130-400) K/uL BMP 10/09/22 07:55 Sodium 136 Potassium 4.1 Chloride 102 Carbon Dioxide 29 BUN 11 Creatinine 0.73 Glucose 98 Calcium 9.2 Liver Function 10/09/22 Range/Units 07:55 Total Bilirubin 0.5 (0.2-1.0) mg/dl AST 121 H (13-39) U/L ALT 237 H (7-52) U/L Alkaline Phosphatase 132 H (34-104) U/L Albumin 3.9 (3.4-5.0) gm/dl
[2022-10-10] MEDS: ACETAMINOPHEN 1,000 MG/100 ML VIAL IV SCH ×2 (00:43→08:20)
[2022-10-10] MEDS: CLINDAMYCIN/D5W 900 MG/50 ML BAG IV SCH ×2 (01:59→10:08)
[2022-10-10] MEDS: oxyCODONE HCL IR 5 MG TAB (IMMEDIATE RELEASE) PO PRN ×2 (01:59→08:23)
[2022-10-10] MEDS: HYDROmorphone INJ 1 MG/ML SYRINGE IV PRN ×2 (05:43→10:21)
[2022-10-10 05:56] LABS: Hematocrit (blood only) 34.8 % (37.0-47.0); Hemoglobin 11.6 g/dl (12.0-16.0); Mean Corpuscular Hemoglobin 29.5 pg (25.0-34.0); Mean Corpuscular Hgb Conc 33.3 g/dL (32.0-36.0); Mean Corpuscular Volume 88.5 fL (80.0-100.0); Mean Platelet Volume 10.5 fL (9.4-12.4); Platelet Count 374 K/uL (130-400); RDW Coefficient of Variation 14.9 % (11.5-14.5); RDW Standard Deviation 48.5 fL (36.4-46.3); Red Blood Count 3.93 M/uL (4.20-5.40); White Blood Count 8.29 K/ul (4.8-10.8)
[2022-10-10 06:12] LABS: Albumin Globulin Ratio 1.2 (0.9-2); Albumin Level 3.6 gm/dl (3.4-5.0); Bilirubin,Total 0.4 mg/dl (0.2-1.0); Calcium 8.4 mg/dl (8.5-10.1); Creatinine Clr Calc Pharmacy 116.8 ml/min; Est GFR (African American) 98.7 ml/min; Est GFR (Non-African American) 85.2 ml/min; Globulin 2.9 gm/dl (2.5-4.0); Total Protein 6.5 gm/dl (6.0-8.3)
[2022-10-10] MEDS: CETIRIZINE HCL 10 MG TABLET PO SCH (08:29)
[2022-10-10] MEDS: FOLIC ACID 1 MG TAB PO SCH (08:30)
[2022-10-10] MEDS: LEUCOVORIN CALCIUM 5 MG TAB PO SCH (08:30)
[2022-10-10] MEDS: FAMOTIDINE 20 MG TAB PO SCH (08:30)
[2022-10-10] MEDS: FUROSEMIDE 40 MG TAB PO SCH (08:30)
[2022-10-10] MEDS: PANTOprazole 40 MG TAB PO SCH (08:31)
[2022-10-10] MEDS: SERTRALINE HCL 50 MG TABLET PO SCH (08:31)
[2022-10-10] MEDS: ARMOUR THYROID 30 MG TAB PO SCH (08:32)
[2022-10-10] MEDS: ONDANSETRON INJ 2 MG/ML 2 ML VIAL IV PRN (10:17)
--- NOTE | 2022-10-10 11:43 | Hospitalist Progress Note ---
Date of Service October 10, 2022 Assessment & Plan (1) Dental abscess: (2) Facial cellulitis: (3) Anxiety: (4) Rheumatoid arthritis: (5) Prediabetes: (6) Obesity: (7) GERD (gastroesophageal reflux disease): (8) Tobacco use disorder: (9) Hypothyroidism: Plan Patient is a 46 yr female with H/O dental abscess that has progressed into facial cellulitis. periapical lucency at ADA 14 and 7x3 mm abscess at buccal surface. Oromaxillofacial consult placed and Dr. Garcia will evaluate for possible I/D on 10/08. Facial cellulitis Left intraorbital abscess Failed outpatient treatment with p.o. clindamycin and warm compress --Soft Tissue neck CT:A tiny periapical lucency at ADA 14 demonstrating cortical breakthrough at the buccal surface with an adjacent 7 x 3 mm abscess. No change in the 5 mm periapical lucency at ADA 12. No associated abscess. No lymphadenopathy or masses identified within the neck.There is a 1.3 cm left thyroid nodule. Follow-up nonemergent thyroid ultrasound recommended for further evaluation. S/P left incision and drainage of facial abscess on 10/08/22 by --Continue IV clindamycin>> changed to p.o. clindamycin upon discharge Received IV fluids Appreciate oral maxillofacial surgery input Pain control Tolerated diet Advised to follow-up with PCP, oromaxillary surgery upon discharge Possible allergic reaction Unclear etiology ?? Less likely due to meds Benadryl as needed Refuses steroids Monitor Improved Anxiety and depression: Continue Sertraline Rheumatoid arthritis: Follows with outpatient rheumatology Hold Abatacept and methotrexate while hospitalized Pre-Diabetes: Morbid Obesity: BMI 51 Hold Metformin Also on semaglutide Tobacco Use Disorder: Recommended cessation Declines Nicotine patch GERD: continue PPI Hypothyroidism: Left thyroid nodule: On CT as above TSH 06/2022: 2.69 Continue home meds Needs follow up as outpatient DVT Px: SCDs Code Status: Full Code Disposition Home Admission and Anticipated Discharge Date Admission Date: October 07, 2022 Subjective Patient is seen and examined at bedside left facial swelling/Pain better Chronic nausea Rash much improved Denies any chest pain, shortness of breath, dizziness, abdominal pain No new complaints Eager to get discharged Review of Systems Review of Systems: All systems reviewed & are unremarkable except as noted in Subjective Physical Exam Physical Exam: Physical Exam: Vitals signs as noted above General Appearance:Morbid Obesity, no apparent distress Head: normocephalic, Atraumatic, Left facial swelling, tenderness Eyes: normal inspection, EOMI Neck: supple, Trachea midline Respiratory/Chest: Normal breath sounds, CTA, No accessory muscle use Cardiovascular: S1, S2, No murmur Abdomen/GI:Soft, Non tender, Bowel sounds present Extremities/Musculoskeletal:normal inspection, no edema Neurologic/Psych:AAOX3, grossly no focal neurological deficits Skin: normal color, warm Results & Data Results & Data ([facility]) Vital Signs (Past 12 Hours) Vital Signs Temp Pulse Pulse Resp BP Pulse Ox O2 Del Method 10/10/22 08:00 36.8 C 75 16 123/86 99 Room Air 10/10/22 07:36 63 10/10/22 02:57 36.8 C 65 16 127/69 97 Room Air Laboratory Results Short CBC 10/10/22 Range/Units 05:20 WBC 8.29 (4.8-10.8) K/ul Hgb 11.6 L (12.0-16.0) g/dl Hct 34.8 L (37.0-47.0) % Plt Count 374 (130-400) K/uL BMP 10/10/22 05:20 Sodium 137 Potassium 4.0 Chloride 105 Carbon Dioxide 27 BUN 10 Creatinine 0.83 Glucose 90 Calcium 8.4 L Liver Function 10/10/22 Range/Units 05:20 Total Bilirubin 0.4 (0.2-1.0) mg/dl AST 68 H (13-39) U/L ALT 165 H (7-52) U/L Alkaline Phosphatase 108 H (34-104) U/L Albumin 3.6 (3.4-5.0) gm/dl
--- NOTE | 2022-10-10 11:54 | Discharge Summary ---
Date of Service October 10, 2022 Admission HPI Per Admitting Provider Ms. Brar is a 46 year old female that presented to the ED today with facial swelling. She presented to the [facility] ED yesterday and soft tissue neck CT revealed a small periapical lucency at ADA 14 demonstrating cortical breakthrough at the buccal surface with an adjacent 7 x 3 mm abscess. She was started on oral Clindamycin and released from the ED. When she returned home she noted some facial swelling that was worsening extending from her temporal area over to her nasal bridge extending to her submandibular area. And returned to the ED. patient stated she has nausea and vomiting that started yesterday. Reports vomit consistency of bile. No known sick exposures. In ED she was given Dilaudid 1 mg IV with relief. Patient reports that this has happened 3 times before with the most recent time 1 month ago and in 2013. Patient denies any surgical intervention for the symptoms. Patient denies visual or auditory changes, urinary or bowel changes, recent falls or trauma, abdominal pain, back pain, dysuria, hematuria or skin rashes. On 10/06 she was seen by her PCP office for facial cellulitis and prescribed oral clindamycin and oxycodone. On 10/07 she called into her PCP office to advise it was worsening, for which she was recommended to proceed to the emergency room. Additional PMH includes: ADD, anxiety and depression, obesity, hypothyroidism, rheumatoid arthritis, and GERD. Patient reports smoking 4 to 5 cigarettes/day, daily marijuana use, no alcohol or other recreational drug use. In the ED, discussion with held between ER physician and Dr. Garcia with oromaxillofacial surgery regarding management. 1LNSB administered and was started on IV clindamycin as recommended. Plan for NPO after might for possible I/D on 10/08. Pt denies difficulty swallowing, tongue swelling, visual or auditory changes, SOB, chest pain, palpitations, nausea, vomiting, diarrhea, recent falls or trauma, abdominal pain. Patient will be admitted for further evaluation and management. Please see A/P for further details. Admission Exam Per Admitting Provider On Physical exam, General: No distress, obese Eyes: PERRL, conjunctivae normal, not pale, anicteric sclerae, EOM intact bilaterally ENMT: External ear and nose normal, Left facial swelling and tenderness over cheekbone Neck: Normal visual inspection, no tracheal deviation, no swelling noted Respiratory: Normal respiratory effort, no respiratory distress, lungs clear to auscultation, no crackles and no wheezes Cardiovascular: RRR S1 S2 Gastrointestinal (Abdomen): Abdomen is not distended, soft, non-tender to palpation, no guarding, no palpable hepatosplenomegaly, normal bowel sounds Musculoskeletal: No pedal edema Neurologic: Alert and oriented x 3, No focal weakness, sensation grossly intact Psychiatric: Euthymic affect Principal Diagnosis Facial cellulitis Left intraorbital abscess S/P I&D left facial abscess Discharge Data Allergies Allergy/AdvReac Type Severity Reaction Status Date / Time gabapentin Allergy Severe SHORTNESS Verified 10/07/22 16:43 OF BREATH sulfamethoxazole Allergy Severe ANAPHYLAXIS Verified 10/07/22 16:43 tramadol Allergy Severe FEELS LIKE Verified 10/07/22 16:43 BUGS ON BODY trimethoprim Allergy Severe ANAPHYLAXIS Verified 10/07/22 16:43 promethazine Allergy Intermediate HIVES Verified 10/07/22 16:43 ketorolac Allergy Mild rash Verified 10/07/22 16:43 penicillinase Allergy Unknown UNSURE OF Verified 10/07/22 16:43 REACTION propoxyphene Allergy Unknown UNSURE OF Verified 10/07/22 16:43 REACTION basil AdvReac Intermediate headaches Verified 10/07/22 16:43 codeine AdvReac Intermediate GI SYMPTOMS Verified 10/07/22 16:45 metronidazole AdvReac Intermediate THRUSH Verified 10/07/22 16:44 prednisone AdvReac Intermediate vomiting Verified 10/07/22 16:45 venlafaxine AdvReac Intermediate Increase Verified 10/07/22 16:45 agitation. sumatriptan AdvReac Mild RASH Verified 10/07/22 16:45 Consultations 10/07/22 15:26 ED Decision to Admit Stat 10/07/22 15:28 Consult Oromaxillofacial Surgery Routine Procedures Performed Operation Date: 10/08/22 13:40 Actual Procedures p Left Incision and Drainage Facial Abscess(Not Applicable) - Vicente Garcia DMD s Teeth Extractions: #14, #13, #12 (Not Applicable) - Vicente Garcia DMD Ordered Studies Laboratory Results WBC 8.29 K/ul (4.8-10.8) 10/10/22 05:20 RBC 3.93 M/uL (4.20-5.40) L 10/10/22 05:20 Hgb 11.6 g/dl (12.0-16.0) L 10/10/22 05:20 Hct 34.8 % (37.0-47.0) L 10/10/22 05:20 MCV 88.5 fL (80.0-100.0) 10/10/22 05:20 MCH 29.5 pg (25.0-34.0) 10/10/22 05:20 MCHC 33.3 g/dL (32.0-36.0) 10/10/22 05:20 RDW Std Deviation 48.5 fL (36.4-46.3) H 10/10/22 05:20 RDW Coeff of Rodrigo 14.9 % (11.5-14.5) H 10/10/22 05:20 Plt Count 374 K/uL (130-400) 10/10/22 05:20 MPV 10.5 fL (9.4-12.4) 10/10/22 05:20 Immature Gran % (Auto) 0.1 % 10/07/22 15:49 Neut % (Auto) 72.1 % 10/07/22 15:49 Lymph % (Auto) 21.3 % 10/07/22 15:49 [place] % (Auto) 5.3 % 10/07/22 15:49 Eos % (Auto) 0.8 % 10/07/22 15:49 Baso % (Auto) 0.4 % 10/07/22 15:49 Neut # (Auto) 5.15 K/uL (1.40-6.50) 10/07/22 15:49 Lymph # (Auto) 1.52 K/uL (1.2-3.4) 10/07/22 15:49 [place] # (Auto) 0.38 K/uL (0.11-0.59) 10/07/22 15:49 Eos # (Auto) 0.06 K/uL (0-0.50) 10/07/22 15:49 Baso # (Auto) 0.03 K/uL (0-0.2) 10/07/22 15:49 Immature Gran # (Auto) 0.01 K/uL (0.01-0.20) 10/07/22 15:49 Sodium 137 mmol/L (136-145) 10/10/22 05:20 Potassium 4.0 mmol/L (3.5-5.1) 10/10/22 05:20 Chloride 105 mmol/L (98-107) 10/10/22 05:20 Carbon Dioxide 27 mmol/L (21-32) 10/10/22 05:20 Anion Gap 5 (3-11) 10/10/22 05:20 BUN 10 mg/dl (6-23) 10/10/22 05:20 Creatinine 0.83 mg/dl (0.6-1.2) 10/10/22 05:20 Est Cr Clr Drug Dosing 116.8 ml/min 10/10/22 05:20 Est GFR ( Amer) 98.7 ml/min 10/10/22 05:20 Est GFR (Non-Af Amer) 85.2 ml/min 10/10/22 05:20 BUN/Creatinine Ratio 12.0 (10-20) 10/10/22 05:20 Glucose 90 mg/dl (70-99(Fasting)) 10/10/22 05:20 POC Glucose 86 mg/dl (70-99) 10/08/22 16:36 Calcium 8.4 mg/dl (8.5-10.1) L 10/10/22 05:20 Magnesium 1.9 mg/dl (1.7-2.4) 10/09/22 07:55 Total Bilirubin 0.4 mg/dl (0.2-1.0) 10/10/22 05:20 AST 68 U/L (13-39) H 10/10/22 05:20 ALT 165 U/L (7-52) H 10/10/22 05:20 Alkaline Phosphatase 108 U/L (34-104) H 10/10/22 05:20 Total Protein 6.5 gm/dl (6.0-8.3) 10/10/22 05:20 Albumin 3.6 gm/dl (3.4-5.0) 10/10/22 05:20 Globulin 2.9 gm/dl (2.5-4.0) 10/10/22 05:20 Albumin/Globulin Ratio 1.2 (0.9-2) 10/10/22 05:20 Urine Color Yellow 10/08/22 03:05 Urine Appearance Clear (Clear) 10/08/22 03:05 Urine pH 6.5 (4.5-7.5) 10/08/22 03:05 Ur Specific [place] 1.015 (1.000-1.030) 10/08/22 03:05 Urine Protein Negative (Negative) 10/08/22 03:05 Urine Glucose (UA) Negative (Negative) 10/08/22 03:05 Urine Ketones Negative (Negative) 10/08/22 03:05 Urine Blood Negative (Negative) 10/08/22 03:05 Urine Nitrite Negative (Negative) 10/08/22 03:05 Urine Bilirubin Negative (Negative) 10/08/22 03:05 Urine Urobilinogen Negative (Negative) 10/08/22 03:05 Ur Leukocyte Esterase Negative (Negative) 10/08/22 03:05 Urine Test Negative (Negative) 10/08/22 03:05 SARS-CoV-2, RNA, NAAT NEGATIVE (NEGATIVE) 10/07/22 15:49 Hospital Course (1) Dental abscess: (2) Facial cellulitis: (3) Anxiety: (4) Rheumatoid arthritis: (5) Prediabetes: (6) Obesity: (7) GERD (gastroesophageal reflux disease): (8) Tobacco use disorder: (9) Hypothyroidism: Plan Patient is a 46 yr female with H/O dental abscess that has progressed into facial cellulitis. periapical lucency at ADA 14 and 7x3 mm abscess at buccal surface. Oromaxillofacial consult placed and Dr. Garcia will evaluate for possible I/D on 10/08. Facial cellulitis Left intraorbital abscess Failed outpatient treatment with p.o. clindamycin and warm compress --Soft Tissue neck CT:A tiny periapical lucency at ADA 14 demonstrating cortical breakthrough at the buccal surface with an adjacent 7 x 3 mm abscess. No change in the 5 mm periapical lucency at ADA 12. No associated abscess. No lymphadenopathy or masses identified within the neck.There is a 1.3 cm left thyroid nodule. Follow-up nonemergent thyroid ultrasound recommended for further evaluation. S/P left incision and drainage of facial abscess on 10/08/22 by --Continue IV clindamycin>> changed to p.o. clindamycin upon discharge Received IV fluids Appreciate oral maxillofacial surgery input Pain control Tolerated diet Advised to follow-up with PCP, oromaxillary surgery upon discharge Possible allergic reaction Unclear etiology ?? Less likely due to meds Benadryl as needed Refuses steroids Monitor Improved Anxiety and depression: Continue Sertraline Rheumatoid arthritis: Follows with outpatient rheumatology Hold Abatacept and methotrexate while hospitalized Pre-Diabetes: Morbid Obesity: BMI 51 Hold Metformin Also on semaglutide Tobacco Use Disorder: Recommended cessation Declines Nicotine patch GERD: continue PPI Hypothyroidism: Left thyroid nodule: On CT as above TSH 06/2022: 2.69 Continue home meds Needs follow up as outpatient DVT Px: SCDs Code Status: Full Code Disposition Home Total Time Total Time Spent Total Time Spent (In Minutes): 56 minutes Discharge Plan Discharge Items Patient Disposition: Home - Self-Care Reason For Visit: FACIAL CELLULITIS Discharge Diagnosis: Facial cellulitis Left intraorbital abscess S/P I&D left facial abscess Activity: Resume your previous activity Bathing: No limitations Exercise/Sports: Gradually increase as tolerated Driving/Machine Use: Resume 1 day after discharge Weightbearing: Full weightbearing Non-emergency contact: Primary Care Provider and Surgeon Call non-emergency contact if: you have any medication questions, your symptoms worsen, you have a fever, your temperature is above 101.5 and your wound has increased drainage Follow-up/Referrals: Vicente Garcia DMD [Physician] - Aniya Rose PA-C [Primary Care Provider] - (Date & Time 10/14/2022 2:40 PM Provider Aniya Rose PA-C Department [facility] ) Diet: Full liquid and Clear liquid Diet Comment: dental soft when able Addtl Attending Provider Instructions: ADDITIONAL ACTIVITY RECOMMENDATIONS: * Soso teeth after every meal. It is very important to keep your mouth clean to prevent infection. * Starting tonight rinse with the Peridex as directed then 2 x a day * it is very important to keep well hydrated, this prevents fever and possible dry socket pain SPECIAL CARE INSTRUCTIONS: *It is not uncommon that between day 2-4 that your swelling will be at its worst this is very normal, do not be alarmed. * Keep ice on the side of your face for the next 24 to 36 hours. This will help keep the swelling down. * After 36 hours, apply heat (hot water bottle or heating pad) for the next two days, as often as possible. * Tomorrow start rinsing your mouth with 1/2 teaspoon salt in 8 ounces warm water. This rinse should be used every 4-6 hours. * You may experience slight nausea. To prevent this, never take your medication on an empty stomach. If nauseated, take small sips of baron real until you feel better; then you may start on applesauce and toast. * Some swelling is common. It should gradually decrease within 4-5 days. * A certain amount of bleeding is to be expected. It is often possible to control mild oozing by placing folded gauze over the area and biting down for 30 minutes. If you are unable to control excessive bleeding, call Dr Garcia at [phone] * You may experience some discomfort for a few days. If pain or swelling increases, Call Dr Garcia * Return to the office for a follow up check up on: * office address--[address] phone # [phone] Add [place] Provider Instructions: Follow-up with your primary care physician Aniya Rose PA-C on 10/14/2022 2:40 PM Follow-up with your oral maxillary surgeon as recommended Seek immediate medical attention if your symptoms reoccur or worsen Please take all medications as instructed on discharge list below. Please call if you have any questions or problems. You can reach a [facility] hospitalist on duty at [facility] 24 hours a day by calling [phone] Pending Studies at Discharge: No Stand-Alone Forms: My [facility], Smoking Cessation Medications and DC Order Prescriptions: New hydrocodone-acetaminophen 5-325 mg tablet 1 tab PO Q6H PRN (Reason: pain) Qty: 14 0RF clindamycin HCl 300 mg capsule 300 mg PO Q8H 7 Days Qty: 21 0RF famotidine 20 mg Tablet 20 mg PO BID Qty: 60 0RF Continued ergocalciferol (vitamin D2) [Vitamin D2] 50,000 unit Capsule 50,000 unit PO WK Rx Instructions: TAKE THIS MEDICATION EVERY WEDNESDAY pantoprazole [Protonix] 20 mg Tablet,Delayed Release (Dr/Ec) 20 mg PO QAM sertraline [Zoloft] 50 mg Tablet 75 mg PO QAM cetirizine 10 mg Tablet 10 mg PO QAM albuterol sulfate [Ventolin HFA] 90 mcg/actuation Hfa Aerosol Inhaler 2 puff INHALATION Q4H PRN (Reason: Wheezing) furosemide [Lasix] 40 mg Tablet 40 mg PO QAM albuterol sulfate 0.63 mg/3 mL Solution For Nebulization 0.63 mg continuous nebulization Q4H PRN (Reason: SHORT OF BREATH) cimetidine 400 mg Tablet 400 mg PO BID methotrexate sodium 25 mg/mL Solution 25 mg subcut WK Rx Instructions: 1 DOSE PER WEEKLY (PT SAYS PEN STATES 0.6ML) TAKES ON SATURDAYS. leucovorin calcium 5 mg Tablet 5 mg PO QAM folic acid 1 mg Tablet 2 mg PO DAILY ondansetron 4 mg tablet,disintegrating 8 mg PO Q6H PRN (Reason: nausea and vomiting) ibuprofen 800 mg tablet 800 mg PO TID PRN (Reason: Pain) thyroid (pork) [DERIVATIVES TRADER Thyroid] 15 mg tablet 7.5 mg PO QAM metformin 500 mg Tablet 500 mg PO BID Orencia 125 mg/mL Syringe 125 mg SUBCUT WK Rx Instructions: TAKE THIS MED EVERY WEDNESDAY Discharge Orders: Discharge Order (Routine); Ordered 10/10/22 Ordered By: Clyde Trotter/Other Patient Handouts: Prediabetes, 5 Steps for Eating Healthier, Post Tooth Extraction Mouth Care Admission Data Admit Date/Time: 10/07/22 15:28 Attending Provider: Clyde Mancini Admit Provider: Rachel Lynch I. Primary Care Provider: Aniya Rose Other Providers: Rachel Lynch I. ; Vicente Garcia
[2022-10-12] MEDS ORDERED: ERGOCALCIFEROL 50,000 UNITS 1250 MCG CAP PO SCH (09:00)
== END 2022-10-10 13:09 | disposition home or self-care (01) | DRG 137 ==
LOC: ED 14:35 → 2N 15:28 → SUATTDRO 15:28 → 2N 17:54